=== PATIENT | female | born 1990 | race Caucasian/White ===

== ENCOUNTER 2018-08-20 05:30 | Inpatient (IN) ==
[2018-08-20] MEDS ORDERED: Magnesium Oxide 400 MG Tablet PO PRN (09:37)
[2018-08-20] MEDS ORDERED: Sodium Phosphate Inj 30 MMOL in Sodium Chlor 0.9% Inj 250 ML IV.SIG PRN (09:37)
[2018-08-20] MEDS ORDERED: Magnesium Sulfate Inj 4 GM in Sodium Chlor 0.9% Inj 92 ML IV.SIG PRN (09:37)
[2018-08-20] MEDS ORDERED: Bisacodyl 10 MG Supp RECTAL PRN (09:37)
[2018-08-20] MEDS ORDERED: Potassium Phosphate Inj 30 MMOL in Sodium Chlor 0.9% Inj 250 ML IV.SIG PRN (09:37)
[2018-08-20] MEDS ORDERED: Potassium Chlor 40 mEq Premix 40 MEQ/100 ML PIGGYBACK IV.SIG PRN ×2 (09:37)
[2018-08-20] MEDS ORDERED: Magnesium Sulfate Inj 2 GM in Sodium Chlor 0.9% Inj 96 ML IV.SIG PRN (09:37)
[2018-08-20] MEDS ORDERED: Potassium Chloride Liq 20 MEQ/15 ML UDC PO PRN ×2 (09:37)
[2018-08-20] MEDS ORDERED: Potassium Phosphate 500 MG Soluble Tablet PO PRN ×2 (09:37)
[2018-08-20] MEDS ORDERED: Potassium Chlor 20 mEq Premix 20 MEQ/100 ML PIGGYBACK IV.SIG PRN ×2 (09:37)
[2018-08-20] MEDS ORDERED: Acetaminophen 325 MG Tablet PO PRN (09:46)
[2018-08-20] MEDS ORDERED: MethylPREDNISolone Sod Succinate Inj 125 MG/2 ML Vial IV.PUSH ONE (10:05)
[2018-08-20] MEDS: Dextrose 5%/NaCl 0.45% Inj 1,000 ML IV.CONT SCH ×2 (10:06→21:24)
--- NOTE | 2018-08-20 10:22 | XR ---
EXAM DATE: 08/20/2018 10:08 AM EST AGE/SEX: 28 years / Female INDICATIONS: Short of breath. CLINICAL DATA: This is the patient's initial encounter. Patient reports that signs and symptoms have been present for 1 day and indicates a pain score of 0/10. MEDICAL/SURGICAL HISTORY: Asthma. None. COMPARISON: No prior exams available for comparison. FINDINGS: A single AP view of the chest demonstrates the lungs to be symmetrically aerated without evidence of mass, infiltrate or effusion. The cardiomediastinal contours are unremarkable. Osseous structures a re intact. CONCLUSION: No acute cardiopulmonary disease Electronically signed by: Shawn Bhatt MD Board Certified Radiologist 08/20/2018 10:21 AM EST
[2018-08-20] MEDS ORDERED: guaiFENesin/Dextromethorphan 200 MG/20 MG 10 ML UDC PO PRN (10:31)
--- NOTE | 2018-08-20 10:38 | P.HPCC ---
History of Present Illness Primary Care Physician: UNKNOWN Chief Complaint: Asthma exacerbation History of Present Illness: This is a 28-year-old female that presented to [facility] in respiratory distress, having an asthma attack. At that particular hospital the patient continued to have escalation in symptomatology, receiving multiple nebulizer treatments and BiPAP and a consult was placed for emergent transfer to [facility] for treatment. The patient's medical history is significant for the fact that she has chronic asthma has had a previous intubation years ago. The patient was being followed at a clinic due to lack of insurance, continued receiving her Atrovent and Atrovent nebulizer treatment , however she stated over the last 3 days symptoms became worse. The patient reports that for the past 3 days she has had a productive cough of yellowish, greenish sputum, and exacerbation of her asthma the patient is also noted to be 20 weeks gestation. Critical care medicine was consulted upon arrival here, the patient was noted to be on a nonrebreather mask with O2 saturation of 100%. A stat ABG was performed. Patient received an albuterol nebulizer treatment. FiO2 concentration was weaned to Ventimask 50% patient O2 saturation ranging at 95%. - Diagnosis (1) Asthma exacerbation (2) Asthma with acute exacerbation in adult (3) 20 weeks gestation of Inpatient Certification: I certify that the inpatient services were ordered in accordance with Medicare regulations governing the order. This includes certification that hospital inpatient services are reasonable and necessary and in the case of services not specified as inpatient-only under 42 CFR 419.22(n), that they are appropriately provided as inpatient services in accordance to with the 2-midnight benchmark under 43 CFR 412.3(e) Estimated Total Length of Stay (Days): 5 Plans for Post Hospital Care: Not yet determined Review of Systems Constitutional: Reports fatigue Cardiovascular: Reports shortness of breath (frequent asthma attacks over the last 3 days, medications ineffective) Respiratory: Reports change in phlegm color, Reports chest congestion, Reports cough, Reports pain with cough Psychiatric: Reports panic attacks (anxiety attacks previously on Xanax prior to ) PMF - History History Provided By: Patient - Medical / Surgical Hx Neg / Unobtainable Surgical History: No Previous Surgery - Medical History Medical History: Medical History (Last Reviewed 06/19/18 @ 15:44 by Jo Ann Longo) Asthma History of episiotomy - Social History I have reviewed the patient's Social History: Yes - Tobacco History Smoking Status: Former smoker (1/2PPD x 5years quit 05/2017) - Alcohol History How Often Do You Have a Drink Containing Alcohol: Never - Substance Use History Substance History: No History of Abuse - Travel History History of Recent Travel: No Recent Travel in the [place] Within the Last 8 Weeks: No Recent Travel Out of the Country Within the Last 8 Weeks: No Medications and Allergies Active Medications: Active Medications Acetaminophen (Tylenol) 650 mg PO Q6H PRN PRN Reason: PAIN 1-10 AND/OR FEVER >101F Al Hydroxide/Mg Hydroxide (Milk Of Magnesia Liq) 30 ml PO Q12H PRN PRN Reason: Mild Constipation Albuterol (Albuterol Neb (Jeimy)) 2.5 mg NEB Q2HR NEB JEIMY Albuterol (Duoneb Neb (Prn)) 1 ampul NEB Q15M PRN PRN Reason: WHEEZING Bisacodyl (Dulcolax Supp) 10 mg RECTAL DAILY PRN PRN Reason: SEVERE CONSITIPATION Chlorhexidine Gluconate (Chlorhexidine 2% Cloth) 3 pack TOPICAL DAILY@0400 JEIMY Stop: 08/26/18 03:59 Chlorhexidine Gluconate (Chlorhexidine 2% Cloth) 3 pack TOPICAL DAILY@0400 PRN PRN Reason: Extra cloth needed Stop: 08/26/18 03:59 Chlorhexidine Gluconate (Chlorhexidine 2% Cloth) 3 pack TOPICAL DAILY@0400 JEIMY Stop: 08/26/18 03:59 Chlorhexidine Gluconate (Chlorhexidine 2% Cloth) 3 pack TOPICAL DAILY@0400 PRN PRN Reason: Extra cloth needed Stop: 08/26/18 03:59 Famotidine (Pepcid) 20 mg PO BID JEIMY Famotidine (Pepcid Pf Inj) 20 mg IV.PUSH Q12HR JEIMY Famotidine (Pepcid Pf Inj) 20 mg IV.PUSH Q12HR JEIMY Guaifenesin/Dextromethorphan (Robitussin Dm Liq) 10 ml PO Q6H PRN PRN Reason: COUGH AND/OR COLD SYMPTOMS Magnesium Sulfate 4 gm/ Sodium (Chloride) 100 mls @ 50 mls/hr IV.SIG UNSCH PRN PRN Reason: For Magnesium 0.9 - 1.1 mg/dL Magnesium Sulfate 2 gm/ Sodium (Chloride) 100 mls @ 50 mls/hr IV.SIG UNSCH PRN PRN Reason: For Magnesium 1.2 - 1.6 mg/dL Last Admin: 08/20/18 10:23 Dose: 50 mls/hr Potassium Chloride (Kcl 40 Meq Premix Inj) 40 meq in 100 mls @ 25 mls/hr IV.SIG Q2H PRN PRN Reason: For Potassium 2.8 - 3.2 mEq/L Potassium Chloride (Kcl 20 Meq Premix Inj) 20 meq in 100 mls @ 50 mls/hr IV.SIG Q2H PRN PRN Reason: For Potassium 3.3 - 3.5 mEq/L Potassium Chloride (Kcl 40 Meq Premix Inj) 40 meq in 100 mls @ 25 mls/hr IV.SIG UNSCH PRN PRN Reason: For Potassium 3.3 - 3.5 mEq/L Potassium Chloride (Kcl 20 Meq Premix Inj) 20 meq in 100 mls @ 50 mls/hr IV.SIG Q2H PRN PRN Reason: For Potassium 2.8 - 3.2 mEq/L Potassium Phosphate 30 mmol/ (Sodium Chloride) 260 mls @ 42 mls/hr IV.SIG UNSCH PRN PRN Reason: SEE LABEL COMMENTS Sodium Phosphate 30 mmol/ (Sodium Chloride) 260 mls @ 42 mls/hr IV.SIG UNSCH PRN PRN Reason: For Phosphorus < 2.5 mg/dL Dextrose/Sodium Chloride (D5w/1/2 Ns Inj) 1,000 mls @ 100 mls/hr IV.CONT .Q10H JEIMY Last Admin: 08/20/18 10:06 Dose: 100 mls/hr Lactulose (Lactulose Liq) 30 ml PO DAILY PRN PRN Reason: SEVERE CONSITIPATION Lactulose (Lactulose Liq) 30 ml PO DAILY PRN PRN Reason: SEVERE CONSITIPATION Magnesium Oxide (Mag-Ox) 800 mg PO UNSCH PRN PRN Reason: For Magnesium 1.2 - 1.6 mg/dL Methylprednisolone Sodium Succinate (Solumedrol Inj) 60 mg IV.PUSH ONCE ONE Stop: 08/20/18 10:06 Potassium Chloride (Kcl Liq) 40 meq PO UNSCH PRN PRN Reason: Potassium level 3.3-3.5 mEq/L Potassium Chloride (Kcl Liq) 40 meq PO UNSCH PRN PRN Reason: POTASSIUM LESS THAN 3.5 Potassium Phosphate (K-Phos Original) 2,000 mg PO Q4H PRN PRN Reason: Phosphorus Less Than 2.5 mg/dL Potassium Phosphate (K-Phos Original) 2,000 mg PO UNSCH PRN PRN Reason: SEE LABEL COMMENTS Sennosides (Senokot) 17.2 mg PO Q12H PRN PRN Reason: Moderate Constipation Sodium Chloride (Ns Flush) 2 ml IV.FLUSH BID JEIMY Sodium Chloride (Ns Flush) 2 ml IV.FLUSH PRN PRN PRN Reason: FLUSH AFTER USING IV ACCESS Sodium Chloride (Ns Flush) 2 ml IV.FLUSH PRN PRN PRN Reason: FLUSH AFTER USING IV ACCESS Allergies Allergy/AdvReac Type Severity Reaction Status Date / Time aspirin Allergy Swelling Verified 06/19/18 15:08 of Lip/Tongue/Throat ibuprofen Allergy Swelling Verified 06/19/18 15:07 of Lip/Tongue/Throat NSAIDS (Non-Steroidal Allergy Shortness Verified 06/19/18 15:07 Anti-Inflamma of Breath Home Medications Medication Instructions Recorded Confirmed Type albuterol sulfate 1 puff INHALATION Q6H PRN 06/19/18 06/19/18 History albuterol sulfate 1.25 mg INHALATION Q4H PRN 06/19/18 06/19/18 History azithromycin [Zithromax Z-James] 250 mg PO DAILY 06/19/18 06/19/18 History fluticasone-salmeterol [Advair 1 puff INHALATION Q12H 06/19/18 06/19/18 History Diskus] prednisone 5 mg PO PER PKG DIR 06/19/18 06/19/18 History Results - Labs CBC & Chem 7: 08/20/18 12:00 08/21/18 06:28 - Imaging Impressions Chest X-Ray 08/20/18 09:53 CONCLUSION: No acute cardiopulmonary disease Exam Vital signs: Vital Signs 08/20/18 10:18 Pulse Rate 127 H Respiratory Rate 20 - Constitutional moderate distress, average body habitus, agitated (anxious) - Routine HEENT Exam Head: Present: normocephalic, atraumatic Eye: Present: EOMI, PERRL, conjunctivae pink ENT: Present: mucous membranes moist, dentition normal, nares patent, external ear normal - Routine Neck Exam Present: supple, full ROM - Routine Respiratory Exam Present: decreased breath sounds, respiratory distress (mild resp distress) - Routine Cardiovascular Exam Present: S1, S2, tachycardia - Routine Abdominal Exam Present: normoactive bowel sounds - Routine Exam Comments: 20 weeks gestational - Routine Skin Exam Present: intact, dry, warm - Routine Neurological Exam Present: alert, oriented X3, CN II-XII intact, normal reflexes, moving all extremities, normal tone Caprini VTE Risk Assessment Caprini VTE Risk Assessment: Moderate/High Risk (score >= 2) Caprini Risk Assessment Model: Point Value = 1 Point Value = 2 Point Value = 3 Point Value = 5 Age 41-60 Minor surgery BMI > 25 kg/m2 Swollen legs Varicose veins or History of unexplained or recurrent spontaneous Oral contraceptives or hormone replacement Sepsis (< 1 month) Serious lung disease, including pneumonia (< 1 month) Abnormal pulmonary function Acute myocardial infarction Congestive heart failure (< 1 month) History of inflammatory bowel disease Medical patient at bed rest Age 61-74 Arthroscopic surgery Major open surgery (> 45 min) Laparoscopic surgery (> 45 min) Malignancy Confined to bed (> 72 hours) Immobilizing plaster cast Central venous access Age >= 75 History of VTE Family history of VTE Factor V Leiden Prothrombin [id number] Lupus anticoagulant Anticardiolipin antibodies Elevated serum homocysteine Heparin-induced thrombocytopenia Other congenital or acquired thrombophilia Stroke (< 1 month) Elective arthroplasty Hip, pelvis, or leg fracture Acute spinal cord injury (< 1 month) Prophylaxis Regimen: Total Risk Factor Score Risk Level Prophylaxis Regimen 0-1 Low Early ambulation 2 Moderate Order ONE of the following: *Sequential Compression Device (SCD) *Heparin 5000 units SQ BID 3-4 Higher Order ONE of the following medications: *Heparin 5000 units SQ TID *Enoxaparin/Lovenox 40 mg SQ daily (WT < 150 kg, CrCl > 30 mL/min) *Enoxaparin/Lovenox 30 mg SQ daily (WT < 150 kg, CrCl > 10-29 mL/min) *Enoxaparin/Lovenox 30 mg SQ BID (WT < 150 kg, CrCl > 30 mL/min) AND/OR *Sequential Compression Device (SCD) 5 or more Highest Order ONE of the following medications: *Heparin 5000 units SQ TID (Preferred with Epidurals) *Enoxaparin/Lovenox 40 mg SQ daily (WT < 150 kg, CrCl > 30 mL/min) *Enoxaparin/Lovenox 30 mg SQ daily (WT < 150 kg, CrCl > 10-29 mL/min) *Enoxaparin/Lovenox 30 mg SQ BID (WT < 150 kg, CrCl > 30 mL/min) AND *Sequential Compression Device (SCD) Assessment and Plan - Problem List (1) Asthma exacerbation Code(s): J45.901 - Unspecified asthma with (acute) exacerbation Status: Acute (2) Asthma with acute exacerbation in adult Code(s): J45.901 - Unspecified asthma with (acute) exacerbation Status: Acute (3) 20 weeks gestation of Code(s): Z3A.20 - 20 weeks gestation of Status: Acute - Assessment and Plan Plan: Assessment This is a 28-year-old female 20 weeks gestation, with acute asthma exacerbation , with worsening symptoms. Patient is at risk for intubation we will admit to ICU. Plan by systems: Neurologic: Anxiety disorder Ativan 0.5 mg every 6 hours as needed for anxiety/agitation. Discussed with OB karolina Faustin in Acetaminophen 650 mg every 6 hours as needed Respiratory: Productive cough Acute asthma exacerbation Obtain stat ABG Wean FiO2 currently on nonrebreather to maintain O2 saturation 9395 % Albuterol every 2 hours as needed Duo nebs every 4 hours as needed Methylprednisolone 60 mg IV x 1 dose Magnesium 2 g IV over 20-min x 1 dose Pulmonology consulted-spoke with Dr. Hodgson Patient was previously on a Zithromax Robitussin-DM 1 teaspoon every 6 hours PRN Obtain sputum culture Insert arterial line for serial blood gas monitoring Cardiovascular: Sinus tachycardia Maintain map greater than 65mmHG Renal: No Rodriguez indicated -- Strict I/Os FEN/GI: N.p.o. status for now patient is at risk for intubation D5 half-normal saline at 100 cc/hr Zofran for nausea Heme/ID: Lactic acidemia Obtain CBC Obtain blood culture x 2. empiric antibiotics Obtain influenza nasal swab Obtain strep pneumo antigen Obtain sputum culture Endocrine: Glucose monitoring per ICU protocol -- SSI Prophylaxis: GI Prophylaxis Famotidine twice daily DVT Prophylaxis -- SCDs, Heparin SQ BID Lines: Peripheral IVs x2. Central line if indicated Dispo: My billing statement This patient remains critically ill with one or more organ systems which are or may become a threat to life. I have spent in excess of 60 minutes discontinuously in the care and management of this patient. This time is exclusive of procedures, and includes, but is not limited to, evaluation of the patient, review of the medical record, discussions with family, consultants, nursing staff, or respiratory therapy, and documentation in the medical record. Code Status: Full Discussed Condition With: Dr. Hodgson Pulmonology, Dr. Sudhakar Gonsalez ACCOUNTS SPECIALIST, patient, and INTERIOR PANELER at bedside
[2018-08-20 10:49] LABS: ABG Base Excess -9.7 mmol/L (-2-2); ABG PCO2 22 mmHg (38-42); ABG PO2 191 mmHG (61-120)
--- NOTE | 2018-08-20 11:49 | P.CONOB ---
History of Present Illness Consult date: 08/20/18 Requesting Physician: Geovanna Osorio Reason for Consult: Asthma exacerbation in a 20-week Primary Care Physician: Dr. Nicola Mojica Chief Complaint: Asthma exacerbation History of Present Illness: 28-year-old black female now at 20 weeks gestation [facility] and is in the ICU for exacerbation of asthma respiratory distress, that presented to [facility] in respiratory distress, having an asthma attack. At that particular hospital the patient continued to have escalation in symptomatology, receiving multiple nebulizer treatments and BiPAP and a consult was placed for emergent transfer to [facility] for treatment. The patient's medical history is significant for the fact that she has chronic asthma has had a previous intubation years ago. The patient was being followed at a clinic due to lack of insurance, continued receiving her Atrovent and Atrovent nebulizer treatment, however she stated over the last 3 days symptoms became worse. The patient reports that for the past 3 days she has had a productive cough of yellowish greenish sputum, and exacerbation of her asthma the patient is also noted to be 28 weeks gestation. Critical care medicine was consult upon arrival here the patient was noted to be on a nonrebreather mask with O2 saturation of 100%. A stat ABG was performed. Patient received an albuterol nebulizer treatment. FiO2 concentration was weaned to Ventimask 50% patient O2 saturation ranging at 95%. Patient is having no obstetric complications no abdominal pain, bleeding, or leakage of fluid. She has had no obstetric complication to date and her Weeks Gestation:: 20 Para: 2 : 3 Review of Systems Respiratory: Reports chest congestion, Reports cough, Reports shortness of breath, Reports wheezing PMFSH - History History Provided By: Patient - Medical History Medical History: Medical History (Last Reviewed 06/19/18 @ 15:44 by Jo Ann Longo) Asthma History of episiotomy - Tobacco History Second Hand Smoke Exposure: No Tobacco Use In Past 30 Days: No Smoking Status: Former smoker (1/2PPD x 5years quit 05/2017) Tobacco Type: Cigarettes - Alcohol History How Often Do You Have a Drink Containing Alcohol: Never - Substance Use History Substance History: No History of Abuse - Travel History History of Recent Travel: No Recent Travel in the [place] Within the Last 8 Weeks: No Recent Travel Out of the Country Within the Last 8 Weeks: No - Immunization History Tetanus Immunization: <5 Years Hx Influenza Vaccine This Season: Yes Medications and Allergies Active Medications: Active Medications Acetaminophen (Tylenol) 650 mg PO Q6H PRN PRN Reason: PAIN 1-10 AND/OR FEVER >101F Al Hydroxide/Mg Hydroxide (Milk Of Magnesia Liq) 30 ml PO Q12H PRN PRN Reason: Mild Constipation Albuterol (Albuterol Neb (Jeimy)) 2.5 mg NEB Q2HR NEB JEIMY Last Admin: 08/20/18 10:49 Dose: Not Given Albuterol (Duoneb Neb (Prn)) 1 ampul NEB Q15M PRN PRN Reason: WHEEZING Bisacodyl (Dulcolax Supp) 10 mg RECTAL DAILY PRN PRN Reason: SEVERE CONSITIPATION Chlorhexidine Gluconate (Chlorhexidine 2% Cloth) 3 pack TOPICAL DAILY@0400 JEIMY Stop: 08/26/18 03:59 Chlorhexidine Gluconate (Chlorhexidine 2% Cloth) 3 pack TOPICAL DAILY@0400 PRN PRN Reason: Extra cloth needed Stop: 08/26/18 03:59 Chlorhexidine Gluconate (Chlorhexidine 2% Cloth) 3 pack TOPICAL DAILY@0400 JEIMY Stop: 08/26/18 03:59 Chlorhexidine Gluconate (Chlorhexidine 2% Cloth) 3 pack TOPICAL DAILY@0400 PRN PRN Reason: Extra cloth needed Stop: 08/26/18 03:59 Famotidine (Pepcid) 20 mg PO BID JEIMY Famotidine (Pepcid Pf Inj) 20 mg IV.PUSH Q12HR JEIMY Famotidine (Pepcid Pf Inj) 20 mg IV.PUSH Q12HR JEIMY Guaifenesin/Dextromethorphan (Robitussin Dm Liq) 10 ml PO Q6H PRN PRN Reason: COUGH AND/OR COLD SYMPTOMS Last Admin: 08/20/18 10:59 Dose: 10 ml Magnesium Sulfate 4 gm/ Sodium (Chloride) 100 mls @ 50 mls/hr IV.SIG UNSCH PRN PRN Reason: For Magnesium 0.9 - 1.1 mg/dL Magnesium Sulfate 2 gm/ Sodium (Chloride) 100 mls @ 50 mls/hr IV.SIG UNSCH PRN PRN Reason: For Magnesium 1.2 - 1.6 mg/dL Last Admin: 08/20/18 10:23 Dose: 50 mls/hr Potassium Chloride (Kcl 40 Meq Premix Inj) 40 meq in 100 mls @ 25 mls/hr IV.SIG Q2H PRN PRN Reason: For Potassium 2.8 - 3.2 mEq/L Potassium Chloride (Kcl 20 Meq Premix Inj) 20 meq in 100 mls @ 50 mls/hr IV.SIG Q2H PRN PRN Reason: For Potassium 3.3 - 3.5 mEq/L Potassium Chloride (Kcl 40 Meq Premix Inj) 40 meq in 100 mls @ 25 mls/hr IV.SIG UNSCH PRN PRN Reason: For Potassium 3.3 - 3.5 mEq/L Potassium Chloride (Kcl 20 Meq Premix Inj) 20 meq in 100 mls @ 50 mls/hr IV.SIG Q2H PRN PRN Reason: For Potassium 2.8 - 3.2 mEq/L Potassium Phosphate 30 mmol/ (Sodium Chloride) 260 mls @ 42 mls/hr IV.SIG UNSCH PRN PRN Reason: SEE LABEL COMMENTS Sodium Phosphate 30 mmol/ (Sodium Chloride) 260 mls @ 42 mls/hr IV.SIG UNSCH PRN PRN Reason: For Phosphorus < 2.5 mg/dL Dextrose/Sodium Chloride (D5w/1/2 Ns Inj) 1,000 mls @ 100 mls/hr IV.CONT .Q10H JEIMY Last Admin: 08/20/18 10:06 Dose: 100 mls/hr Lactulose (Lactulose Liq) 30 ml PO DAILY PRN PRN Reason: SEVERE CONSITIPATION Magnesium Oxide (Mag-Ox) 800 mg PO UNSCH PRN PRN Reason: For Magnesium 1.2 - 1.6 mg/dL Potassium Chloride (Kcl Liq) 40 meq PO UNSCH PRN PRN Reason: Potassium level 3.3-3.5 mEq/L Potassium Chloride (Kcl Liq) 40 meq PO UNSCH PRN PRN Reason: POTASSIUM LESS THAN 3.5 Potassium Phosphate (K-Phos Original) 2,000 mg PO Q4H PRN PRN Reason: Phosphorus Less Than 2.5 mg/dL Potassium Phosphate (K-Phos Original) 2,000 mg PO UNSCH PRN PRN Reason: SEE LABEL COMMENTS Sennosides (Senokot) 17.2 mg PO Q12H PRN PRN Reason: Moderate Constipation Sodium Chloride (Ns Flush) 2 ml IV.FLUSH BID JEIMY Sodium Chloride (Ns Flush) 2 ml IV.FLUSH PRN PRN PRN Reason: FLUSH AFTER USING IV ACCESS Allergies Allergy/AdvReac Type Severity Reaction Status Date / Time aspirin Allergy Swelling Verified 06/19/18 15:08 of Lip/Tongue/Throat ibuprofen Allergy Swelling Verified 06/19/18 15:07 of Lip/Tongue/Throat NSAIDS (Non-Steroidal Allergy Shortness Verified 06/19/18 15:07 Anti-Inflamma of Breath Home Medications Medication Instructions Recorded Confirmed Type albuterol sulfate 1 puff INHALATION Q6H PRN 06/19/18 06/19/18 History albuterol sulfate 1.25 mg INHALATION Q4H PRN 06/19/18 06/19/18 History azithromycin [Zithromax Z-James] 250 mg PO DAILY 06/19/18 06/19/18 History fluticasone-salmeterol [Advair 1 puff INHALATION Q12H 06/19/18 06/19/18 History Diskus] prednisone 5 mg PO PER PKG DIR 06/19/18 06/19/18 History Exam Vital signs: Vital Signs 08/20/18 10:18 Pulse Rate 127 H Respiratory Rate 20 Intake & Output 08/19/18 08/20/18 08/20/18 18:59 06:59 18:59 Weight 78.5 kg Other: Weight On Admission 78.5 kg Narrative: GENERAL: Well-nourished, well-developed patient. SKIN: Warm and dry. HEAD: Normocephalic and atraumatic. EYES: No scleral icterus. No injection or drainage. ENT: No nasal drainage noted. Mucous membranes pink. Airway patent. NECK: Supple, trachea midline. No JVD. CARDIOVASCULAR: Tachycardic sinus rhythm RESPIRATORY: Breath sounds equal bilaterally. No accessory muscle use. Positive wheezing BREASTS: Bilateral exam showed no masses , no retractions, no nipple discharge. ABDOMEN/GI: Abdomen soft, non-tender, bowel sounds present, no rebound, no guarding Gravid to [20-] weeks size Fundal Height: [at umb-] GENITOURINARY: FHT's: 144 EXTREMITIES: No cyanosis or edema. BACK: Nontender without obvious deformity. No CVA tenderness. NEUROLOGICAL: Awake and alert. Motor and sensory grossly within normal limits. Five out of 5 muscle strength in all muscle groups. Normal speech. Results - Labs Labs: Laboratory Results - last 24 hr 08/20/18 09:48 Puncture Site Art line Patient Temperature 98.6 O2 Saturation 97 ABG pH 7.42 ABG pCO2 22 L* ABG pO2 191 H ABG HCO3 14 L* ABG O2 Content 19.8 ABG Base Excess -9.7 L ABG Methemoglobin 1.8 Ray Test Present Hemoglobin 14.3 Carboxyhemoglobin 0.5 O2 Delivery Device Nrm Liter Flow 15.00 Inspired O2 100 Critical Value Yes - Imaging Impressions Chest X-Ray 08/20/18 09:53 CONCLUSION: No acute cardiopulmonary disease Assessment and Plan - Diagnosis (1) 20 weeks gestation of Code(s): Z3A.20 - 20 weeks gestation of Status: Acute (2) Asthma with acute exacerbation in adult Code(s): J45.901 - Unspecified asthma with (acute) exacerbation Status: Acute - Plan Obstetric plan for this 20-week patient is to be a consultation service. Counseled her admitting physicians on medications that are appropriate for her being 5 months which would include antibiotics, cough medications anxiety meds. heart tones are normal today and will plan to check heart tones before she is discharged from the hospital make sure there continued to be okay otherwise she will follow-up with her routine obstetric care once out of the [facility] with [facility]
[2018-08-20 12:21] LABS: Hematocrit 36.1 % (35.0-46.0); Hemoglobin 12.2 gm/dL (11.6-15.3); Mean Corpuscular Hemoglobin 33.8 pg (27.0-34.0); Mean Corpuscular Volume 99.5 fL (80.0-100.0); Mean Platelet Volume 8.5 fL (7.0-11.0); Platelet Count 218 th/mm3 (150-450); Red Blood Count 3.62 mil/mm3 (4.00-5.30); Red Cell Distribution Width 13.7 % (11.6-17.2); White Blood Count 24.3 th/mm3 (4.0-11.0)
[2018-08-20 12:41] LABS: Calcium 7.9 mg/dL (8.5-10.1); Carbon Dioxide 15.8 meq/L (21.0-32.0); Potassium 3.9 meq/L (3.5-5.1)
[2018-08-20 12:49] LABS: ABG Base Excess -9.9 mmol/L (-2-2); ABG PCO2 19 mmHg (38-42); ABG PO2 68 mmHG (61-120)
[2018-08-20] MEDS: Budesonide-Formoterol 160/4.5 MCG 6 GM Inhaler INH SCH ×2 (13:33→21:24)
[2018-08-20] MEDS ORDERED: Propofol Inj 500 MG/50 ML Vial IV.PUSH ONE (13:41)
[2018-08-20] MEDS ORDERED: Succinylcholine Inj 200 MG/10 ML Vial IV.PUSH ONE (13:42)
[2018-08-20] MEDS ORDERED: fentaNYL Citrate Inj 250 MCG/5 ML Ampul IV.PUSH ONE (13:43)
[2018-08-20] MEDS ORDERED: Succinylcholine Inj 200 MG/10 ML Vial ONE (13:44)
[2018-08-20] MEDS ORDERED: Propofol Inj 500 MG/50 ML Vial ONE (13:45)
[2018-08-20] MEDS ORDERED: fentaNYL Citrate Inj 100 MCG/2 ML Ampul ONE ×2 (13:46→14:31)
--- NOTE | 2018-08-20 13:57 | MB ---
cc: Sathya Vivas MD DATE: 08/20/2018 REASON FOR CONSULTATION: Acute asthma exacerbation. HISTORY OF PRESENT ILLNESS: The patient is a 28-year-old female with a past medical history of bronchial asthma, G3, P2, at 20-week gestation, who initially presented to [facility] in respiratory distress and with acute asthma exacerbation. She received multiple nebulizer treatments and a BiPAP. She was emergently transferred to [facility]. She was admitted to the ICU under dry primer powder blender service. The patient was also seen by the OB hospitalist. ABG was performed on a nonrebreather mask which showed a pH of 7.42, CO2 of 22, PaO2 of 191, bicarbonate 14, and saturation of 97%. She was given a bronchodilator, magnesium, and IV steroids. The patient states that she was diagnosed with bronchial asthma 10 years ago and has been progressively worsened in the last few years. At home, she uses Advair, albuterol inhaler, and nebulizers. She was hospitalized 3 times in last 1 year and required intubation previously. The patient states that her asthma is worse with seasonal changes, pollens, and grass. She also reports productive cough with dugan phlegm associated with wheezing and shortness of breath. She denies any orthopnea, PND, or edema of lower extremities. Also, she denies any constitutional symptoms. A chest x-ray on arrival showed no acute disease. Her laboratory data significant for leukocytosis with a WBC of 24.3. The patient denies any nausea or vomiting. A repeat ABG is pending. PAST MEDICAL HISTORY: Significant for bronchial asthma, history of episiotomy. ALLERGIES: ASPIRIN, NSAIDS, IBUPROFEN. SOCIAL HISTORY: Ex-smoker, quit smoking in 2017. She has a 5-pack-year history of smoking. Nondrinker. FAMILY HISTORY: Noncontributory to present illness. MEDICATIONS AT HOME: 1. vitamins. 2. Advair. 3. Z-James 4. Albuterol. REVIEW OF SYSTEMS: As per HPI. The rest of review of systems is unremarkable. PHYSICAL EXAMINATION: GENERAL: A 28-year-old female lying in bed, in mild distress. VITAL SIGNS: Temperature 98.5, pulse of 120s, respiratory rate of 20, blood pressure 119/58, saturation of 95%. HEENT: Atraumatic, normocephalic. Pupils are equal, round, reactive to light and accommodation. Extraocular muscles intact. Conjunctivae pink, anicteric sclerae. Oral mucosa within normal. NECK: Supple. No JVD, adenopathy, thyromegaly. Trachea in the midline. CARDIOVASCULAR: Tachycardic. Normal S1, S2. No murmurs, rubs or gallops noted. PULMONARY: Bilateral equal air entry with scattered wheezing and a few coarse breath sounds. ABDOMEN: Soft, nontender. Positive bowel sounds. EXTREMITIES: No cyanosis, clubbing, or edema. NEUROLOGIC: No focal sensory deficit. LABORATORY DATA: WBC 24.3, hemoglobin 12, hematocrit 36, platelet count 218. BMP, lactic acid is pending. Radiographic studies: Chest x-ray showed no acute disease. IMPRESSION: 1. Acute hypoxemic respiratory failure. 2. Acute bronchial asthma exacerbation. 3. Bronchospasms. 4. Leukocytosis. RECOMMENDATIONS: 1. Continue with oxygen and maintain saturations above 92%. 2. Place on bronchodilators in the form of DuoNeb every 4 hours plus every 2 hours p.r.n. for shortness of breath and Symbicort 160/4.5 two puffs b.i.d. 3. Start Solu-Medrol 40 mg IV every [address] on empiric antibiotics, Rocephin, and monitor for signs of infection which include fever and WBC. We will obtain a sputum culture with Gram stain, check Streptococcus pneumoniae and Legionella urinary antigen, and send nasal swab to rule out influenza. 5. We will obtain repeat ABG now. If there is any worsening in respiratory status, we will proceed with intubation and mechanical ventilation. 6. Obtain a baseline IgE level. 7. Singulair 10 mg at bedtime if okay with OB. 8. Repeat CBC with differential and follow up on BMP and lactic acid. 9. Case discussed with Dr. Gonsalez from OB. 10. Further recommendations will be based on hospital course. MD RIGO Coello/ninfa , 12:57 PM , 01:08 PM STUART
[2018-08-20] MEDS: Propofol 1000 mg/100 ml Inj 1,000 MG/100 ML BOTTLE IV.CONT PRN ×2 (14:15→19:40)
[2018-08-20] MEDS: fentaNYL 10 mcg/mL Premix Drip 2,500 MCG/250 ML BAG IV.SIG PRN (14:30)
[2018-08-20] MEDS ORDERED: fentaNYL Citrate Inj 100 MCG/2 ML Ampul IV.PUSH ONE (14:30)
[2018-08-20] MEDS ORDERED: Heparin - SQ 10,000 UNITS/ML Vial SQ SCH (14:45)
--- NOTE | 2018-08-20 15:25 | XR ---
EXAM DATE: 08/20/2018 2:58 PM EST AGE/SEX: 28 years / Female INDICATIONS: Post intubation. CLINICAL DATA: This is the patient's subsequent encounter. Patient reports that signs and symptoms h ave been present for 1 day and indicates a pain score of Nonresponsive. MEDICAL/SURGICAL HISTORY: Asthma. None. COMPARISON: No prior exams available for comparison. FINDINGS: Endotracheal tube in good position. NG coiled in stomach. Minimal subsegmental basilar airspace disea se and small right. No pneumothorax. CONCLUSION: Endotracheal tube and nasogastric tube in good position. Subsegmental basilar airspace disease. Electronically signed by: Ezio Toledo MD Board Certified Radiologist 08/20/2018 3:24 PM EST
[2018-08-20] MEDS ORDERED: Dextrose 50% in Water 50 ML Vial IV.PUSH PRN (15:55)
--- NOTE | 2018-08-20 15:55 | P.PCN ---
Date of procedure: 08/20/18 Pre-op diagnosis: Asthma exacerbation Post-op diagnosis: same Procedure: Endotracheal Intubation Diagnosis: Asthma exacerbation Indications: Same Consent: From patient Anesthesia: see MAR Description of the Procedure: The patient was positioned in the sniffing position. Pre-oxygenation was performed using a 100% BVM. Anesthesia was induced via rapid sequence. A Glidescope 3 was used for laryngoscopy and a Grade 1 view was obtained. A 7.5 cuffed endotracheal tube was inserted atraumatically through the vocal cords. Confirmation of correct endotracheal tube placement was made by equal and bilateral breath sounds and colorimetric CO2 detection. The endotracheal tube was secured at 20 cm at the teeth. There were no immediate complications noted. The patient remained hemodynamically stable throughout the procedure. A chest x-ray has been ordered. I personally performed the procedure. Condition: critical
[2018-08-20] MEDS: Oral Hygiene Kit OROPHARYNG SCH (16:04)
[2018-08-20 16:16] LABS: ABG Base Excess -10.2 mmol/L (-2-2); ABG PCO2 28 mmHg (38-42); ABG PO2 326 mmHG (61-120)
[2018-08-20 17:50] LABS: ABG Base Excess -10.5 mmol/L (-2-2); ABG PCO2 25 mmHg (38-42); ABG PO2 94 mmHG (61-120)
[2018-08-20] MEDS: Insulin NovoLOG Aspart Correctional Sugar Inj SQ SCH (18:05)
[2018-08-20] MEDS ORDERED: Sod Chloride 0.9% Inj 1,000 ML IV.SIG SCH (18:15)
[2018-08-20] MEDS ORDERED: Dexmedetomidine Inj 200 MCG in Sodium Chlor 0.9% Inj 48 ML IV.CONT PRN (20:48)
[2018-08-20] MEDS ORDERED: Famotidine 20 MG Tablet PO SCH (21:00)
[2018-08-20] MEDS ORDERED: Famotidine PF Inj 20 MG/2 ML Vial IV.PUSH SCH (21:00)
[2018-08-20] MEDS: Famotidine PF Inj 20 MG/2 ML Vial IV.PUSH SCH (21:23)
[2018-08-20] MEDS: Chlorhexidine 0.12% Oral Kit 15 ML UDC OROPHARYNG SCH (21:24)
[2018-08-21] MEDS: MethylPREDNISolone Sod Succinate Inj 40 MG/ML Vial IV.PUSH SCH ×3 (00:41→23:14)
[2018-08-21] MEDS: fentaNYL 10 mcg/mL Premix Drip 2,500 MCG/250 ML BAG IV.SIG PRN (00:42)
[2018-08-21] MEDS: Oral Hygiene Kit OROPHARYNG SCH ×4 (00:44→15:07)
[2018-08-21] MEDS: Insulin NovoLOG Aspart Correctional Sugar Inj SQ SCH ×4 (00:46→17:35)
[2018-08-21] MEDS ORDERED: Sodium Chlor 0.9% Inj 500 ML IV.SIG SCH (01:00)
[2018-08-21] MEDS: Dexmedetomidine Inj 200 MCG in Sodium Chlor 0.9% Inj 48 ML IV.CONT PRN ×2 (01:32→05:51)
[2018-08-21] MEDS: Propofol 1000 mg/100 ml Inj 1,000 MG/100 ML BOTTLE IV.CONT PRN (01:46)
[2018-08-21] MEDS ORDERED: Chlorhexidine Gluconate 2% 1 Pack (2 Cloths) TOPICAL PRN ×2 (04:00)
[2018-08-21] MEDS: Chlorhexidine Gluconate 2% 1 Pack (2 Cloths) TOPICAL SCH ×2 (04:44)
[2018-08-21 06:35] LABS: ABG PCO2 28 mmHg (38-42); ABG PO2 117 mmHG (61-120)
[2018-08-21 06:54] LABS: Baso % (Auto) 0.2 % (0.0-2.0); Eos % (Auto) 0.1 % (0.0-4.0); Hematocrit 29.1 % (35.0-46.0); Lymph # (Auto) 0.9 th/mm3 (1.0-4.8); Lymph % (Auto) 4.4 % (9.0-44.0); Mean Corpuscular HGB Conc 34.4 % (32.0-36.0); Mean Corpuscular Hemoglobin 34.8 pg (27.0-34.0); Mean Corpuscular Volume 101.1 fL (80.0-100.0); Mean Platelet Volume 8.4 fL (7.0-11.0); Mono % (Auto) 4.9 % (0.0-8.0); Neut # (Auto) 18.8 th/mm3 (1.8-7.7); Neut % (Auto) 90.4 % (16.0-70.0); Platelet Count 187 th/mm3 (150-450); Red Blood Count 2.88 mil/mm3 (4.00-5.30); Red Cell Distribution Width 13.5 % (11.6-17.2); White Blood Count 20.8 th/mm3 (4.0-11.0)
[2018-08-21] MEDS: Dextrose 5%/NaCl 0.45% Inj 1,000 ML IV.CONT SCH ×2 (06:57→15:12)
[2018-08-21 07:07] LABS: Anion Gap 7 meq/L (5-15); Blood Urea Nitrogen 12 mg/dL (7-18); Calcium 6.9 mg/dL (8.5-10.1); Carbon Dioxide 18.1 meq/L (21.0-32.0); Chloride 116 meq/L (98-107); Glomerular Filtration Rate Greater Than 89 mL/min (>89); Glucose,Random 122 mg/dL (74-106); Phosphorus 2.3 mg/dL (2.5-4.9); Potassium 4.5 meq/L (3.5-5.1); Sodium 141 meq/L (136-145)
[2018-08-21 07:13] LABS: Albumin 2.3 g/dL (3.4-5.0); Calcium-Albumin Corrected 8.3 mg/dL (8.5-10.1)
[2018-08-21 07:44] LABS: Lymphocytes 3 % (9-44); Metamyelocytes 1 % (0-1); Monocytes 4 % (0-8); Platelet Estimate Normal (Normal); Platelet Morphology Normal (Normal)
--- NOTE | 2018-08-21 07:44 | P.OBGPN ---
OB note HD 2 Pt is 20 wk IUP with resp distress secondary to asthma /pnuemonia , now intubated no OB complication, no bleeding or fluid leakage will continue to round and give career placement services counselor on different meds and address any OB concerns
--- NOTE | 2018-08-21 07:59 | P.PNCC ---
Subjective Subjective Remarks/Hospital Course: 08/21: Last evening the patient's ABG worsen patient's respiratory status deteriorated the patient required intubation and mechanical ventilation .labs obtained the patient was noted to have a leukocytosis cultures were obtained empiric antibiotics were initiated to include ampicillin and Rocephin both discussed with [employer] Dr. Gonsalez. ID was also consulted. this a.m. the patient's oxygen requirements decreased overnight. Patient transition to Precedex in anticipation for possible extubation today. The patient was on low-dose Precedex 0.3 mcgs/kg/hr. This a.m. the patient complained chest tightness, butyryl neb nebulizer was provided. Patient has OGT in situ the patient began vomiting, NG tube placed on suctioned, subsequently dislodged from vomiting, and removed. Patient became extremely agitated. Precedex infusion increased. Discussed case with Dr. Gonsalez at bedside plan for Vistaril 50 mg IM every 6 hours as recommended. Patient complaining of persistent nausea, Zofran continued at every 6 hours as needed. Objective Vital Signs / I&O: Vital Signs 08/20/18 10:00 08/20/18 10:18 08/20/18 12:00 Temperature 98.5 F Pulse Rate 127 H 127 H 128 H Respiratory Rate 20 28 H Blood Pressure 119/58 L Pulse Oximetry 95 08/20/18 12:09 08/20/18 14:00 08/20/18 14:23 Temperature Pulse Rate 121 H 145 H Respiratory Rate 20 25 H 22 Blood Pressure Pulse Oximetry 99 08/20/18 16:00 08/20/18 16:01 08/20/18 18:00 Temperature 99.2 F Pulse Rate 102 H 104 H 100 H Respiratory Rate 17 12 Blood Pressure 96/53 L Pulse Oximetry 99 08/20/18 20:00 08/20/18 20:06 08/20/18 22:00 Temperature Pulse Rate 85 114 H 83 Respiratory Rate 18 Blood Pressure Pulse Oximetry 100 08/20/18 22:30 08/20/18 22:45 08/20/18 22:57 Temperature Pulse Rate 148 H 105 H 105 H Respiratory Rate 25 H 20 14 Blood Pressure 154/90 H 126/66 Pulse Oximetry 95 96 08/20/18 22:58 08/20/18 23:00 08/20/18 23:13 Temperature Pulse Rate 101 H 96 H Respiratory Rate 18 12 12 Blood Pressure 103/59 L 99/54 L Pulse Oximetry 96 97 97 08/20/18 23:15 08/20/18 23:30 08/20/18 23:45 Temperature Pulse Rate 93 H 135 H 96 H Respiratory Rate 12 19 12 Blood Pressure 97/54 L 121/66 127/66 Pulse Oximetry 98 97 96 08/21/18 00:00 08/21/18 00:15 08/21/18 00:30 Temperature Pulse Rate 130 H 142 H 102 H Respiratory Rate 20 20 12 Blood Pressure 123/67 132/67 98/51 L Pulse Oximetry 83 L 100 95 08/21/18 00:45 08/21/18 01:00 08/21/18 01:15 Temperature Pulse Rate 97 H 95 H 95 H Respiratory Rate 12 12 12 Blood Pressure 98/55 L 109/59 L 107/56 L Pulse Oximetry 97 98 98 08/21/18 01:30 08/21/18 01:45 08/21/18 02:00 Temperature Pulse Rate 116 H 103 H 112 H Respiratory Rate 14 12 12 Blood Pressure 114/64 113/62 110/60 Pulse Oximetry 100 98 95 08/21/18 02:07 08/21/18 02:30 08/21/18 02:46 Temperature Pulse Rate 97 H 89 112 H Respiratory Rate 12 12 18 Blood Pressure 87/49 L 92/55 L 98/56 L Pulse Oximetry 98 99 96 08/21/18 03:00 08/21/18 03:15 08/21/18 03:30 Temperature Pulse Rate 88 82 81 Respiratory Rate 12 12 12 Blood Pressure 93/50 L 93/53 L 94/52 L Pulse Oximetry 100 100 100 08/21/18 04:00 08/21/18 04:01 08/21/18 04:02 Temperature Pulse Rate 105 H 93 H 92 H Respiratory Rate 17 13 16 Blood Pressure 104/50 L Pulse Oximetry 72 L 95 98 08/21/18 04:15 08/21/18 04:30 08/21/18 04:45 Temperature Pulse Rate 102 H 102 H 115 H Respiratory Rate 16 22 21 Blood Pressure 94/50 L 95/57 L 99/60 L Pulse Oximetry 97 97 100 08/21/18 05:00 08/21/18 05:15 08/21/18 06:00 Temperature Pulse Rate 101 H 122 H 78 Respiratory Rate 19 23 15 Blood Pressure 111/55 L 121/55 L Pulse Oximetry 97 96 Intake & Output 08/20/18 08/21/18 08/21/18 18:59 06:59 18:59 Intake Total 500 / 500 4100 / 4100 Output Total 570 / 570 500 / 500 Balance -70 / -70 3600 / 3600 Weight 78.5 kg 82 kg Intake: IV 500 / 500 4100 / 4100 Precedex Inj 200 MCG In NS Inj 50 / 50 48 ML @ 0.2 MCG/KG/HR 3.92 mls/ hr IV.CONT TITRATE PRN Rx#: [id number] D5W/1/2 NS Inj 1,000 ML @ 100 2000 / 2000 mls/hr IV.CONT .Q10H YASMEEN Rx#: [id number] Diprivan 1000 mg/100 ml Inj 1, 100 / 100 100 / 100 000 mg In 100 ml @ 5 MCG/KG/MIN 2.355 mls/hr IV.CONT TITRATE PRN Rx#:[id number] Ampicillin Inj 2,000 MG In NS 200 / 200 200 / 200 Inj 100 ML @ 400 mls/hr IV.SIG Q4H YASMEEN Rx#:[id number] Magnesium Sulfate Inj 2 GM In 100 / 100 NS Inj 96 ML @ 50 mls/hr IV.SIG UNSCH PRN Rx#:[id number] NS Inj 1,000 ML @ 1000 mls/hr 1000 / 1000 IV.SIG BOLUS YASMEEN Rx#:[id number] NS Inj 500 ML @ 1000 mls/hr IV. 500 / 500 SIG BOLUS YASMEEN Rx#:[id number] Rocephin Inj 1,000 MG In NS Inj 100 / 100 100 ML @ 200 mls/hr IV.SIG Q24H YASMEEN Rx#:[id number] fentaNYL 10 mcg/mL Premix Drip 250 / 250 2,500 mcg In 250 ml @ 50 MCG/HR 5 mls/hr IV.SIG TITRATE PRN Rx #:[id number] Output: Urine Amount (Catheter) 570 / 570 500 / 500 Indwelling Urethral Catheter 570 / 570 500 / 500 Other: # Voids 1 # Incontinent Voids 1 Date of Last Bowel Movement 08/19/18 08/19/18 Weight On Admission 78.5 kg Result Diagrams: 08/21/18 06:28 08/21/18 06:28 Other Results: Laboratory Results WBC 20.8 th/mm3 (4.0-11.0) H 08/21/18 06:28 RBC 2.88 mil/mm3 (4.00-5.30) L 08/21/18 06:28 Hgb 10.0 gm/dL (11.6-15.3) L D 08/21/18 06:28 Hct 29.1 % (35.0-46.0) L 08/21/18 06:28 MCV 101.1 fL (80.0-100.0) H 08/21/18 06:28 MCH 34.8 pg (27.0-34.0) H 08/21/18 06:28 MCHC 34.4 % (32.0-36.0) 08/21/18 06:28 RDW 13.5 % (11.6-17.2) 08/21/18 06:28 Plt Count 187 th/mm3 (150-450) 08/21/18 06:28 MPV 8.4 fL (7.0-11.0) 08/21/18 06:28 Prelim Diff (Auto) Slide review pending 08/21/18 06:28 Neut % (Auto) 90.4 % (16.0-70.0) H 08/21/18 06:28 Lymph % (Auto) 4.4 % (9.0-44.0) L 08/21/18 06:28 [place] % (Auto) 4.9 % (0.0-8.0) 08/21/18 06:28 Eos % (Auto) 0.1 % (0.0-4.0) 08/21/18 06:28 Baso % (Auto) 0.2 % (0.0-2.0) 08/21/18 06:28 Neut # (Auto) 18.8 th/mm3 (1.8-7.7) H 08/21/18 06:28 Lymph # (Auto) 0.9 th/mm3 (1.0-4.8) L 08/21/18 06:28 [place] # (Auto) 1.0 th/mm3 (0.0-0.9) H 08/21/18 06:28 Eos # (Auto) 0.0 th/mm3 (0.0-0.4) 08/21/18 06:28 Baso # (Auto) 0.0 th/mm3 (0.0-0.2) 08/21/18 06:28 WBC Differential Manual diff final 08/21/18 06:28 Seg Neuts % (Manual) 76 % (16-70) H 08/21/18 06:28 Band Neuts % (Manual) 16 % (0-6) H 08/21/18 06:28 Lymphocytes % (Manual) 3 % (9-44) L 08/21/18 06:28 Monocytes % (Manual) 4 % (0-8) 08/21/18 06:28 Metamyelocytes % (Man) 1 % (0-1) 08/21/18 06:28 Abs Neuts (Manual) 19.3 th/mm3 (1.8-7.7) H 08/21/18 06:28 Differential Comment . 08/21/18 06:28 Platelet Estimate Normal (Normal) 08/21/18 06:28 Platelet Morphology Normal (Normal) 08/21/18 06:28 Puncture Site Art line 08/21/18 06:23 Patient Temperature 98.6 08/21/18 06:23 O2 Saturation 96 % (90-100) 08/21/18 06:23 ABG pH 7.34 (7.380-7.420) L 08/21/18 06:23 ABG pCO2 28 mmHg (38-42) L 08/21/18 06:23 ABG pO2 117 mmHG (61-120) 08/21/18 06:23 ABG HCO3 15 mmol/L (22-26) L* 08/21/18 06:23 ABG O2 Content 14.6 Vol % (12.0-20.0) 08/21/18 06:23 ABG Base Excess -10.0 mmol/L (-2-2) L 08/21/18 06:23 ABG Methemoglobin 1.9 % (0-2) 08/21/18 06:23 Ray Test Present 08/20/18 17:32 Hemoglobin 10.7 G/DL (12.0-16.0) L 08/21/18 06:23 Carboxyhemoglobin 0.5 % (0-4) 08/21/18 06:23 O2 Delivery Device Ventilator 08/21/18 06:23 Liter Flow 15.00 L/M 08/20/18 09:48 Vent Setting Prvc / ac / 08/21/18 06:23 Inspired O2 45 % 08/21/18 06:23 Critical Value Yes 08/21/18 06:23 Sodium 141 meq/L (136-145) 08/21/18 06:28 Potassium 4.5 meq/L (3.5-5.1) 08/21/18 06:28 Chloride 116 meq/L (98-107) H 08/21/18 06:28 Carbon Dioxide 18.1 meq/L (21.0-32.0) L 08/21/18 06:28 Anion Gap 7 meq/L (5-15) 08/21/18 06:28 BUN 12 mg/dL (7-18) 08/21/18 06:28 Creatinine 0.65 mg/dL (0.50-1.00) 08/21/18 06:28 Estimated GFR Greater than 89 mL/min (>89) 08/21/18 06:28 POC Glucose 114 mg/dl (68-110) H 08/21/18 00:46 Random Glucose 122 mg/dL (74-106) H 08/21/18 06:28 Lactic Acid 1.8 mmol/L (0.4-2.0) 08/21/18 06:28 Calcium 6.9 mg/dL (8.5-10.1) L* D 08/21/18 06:28 Calcium Adj for Albumin 8.3 mg/dL (8.5-10.1) L 08/21/18 06:28 Phosphorus 2.3 mg/dL (2.5-4.9) L 08/21/18 06:28 Magnesium 2.0 mg/dL (1.5-2.5) 08/21/18 06:28 Albumin 2.3 g/dL (3.4-5.0) L 08/21/18 06:28 Nasal Screen MRSA (PCR) Not detected (Negative) 08/20/18 09:31 Impressions Chest X-Ray 08/20/18 14:24 CONCLUSION: Endotracheal tube and nasogastric tube in good position. Subsegmental basilar airspace disease. Objective Remarks: GENERAL: This is a well developed well nourished female in moderate distress this am actively vomiting SKIN: Warm and dry. HEAD: Atraumatic. Normocephalic. EYES: Pupils equal and round. EOMI. No scleral icterus. No injection or drainage. ENT: No nasal bleeding or discharge. Mucous membranes pink and moist. NECK: Trachea midline. No JVD. CARDIOVASCULAR: Normal rate, regular rhythm. RESPIRATORY: No accessory muscle use. Clear to auscultation. Breath sounds equal bilaterally. GASTROINTESTINAL: Abdomen soft, non-tender, nondistended. No guarding. movement noted. MUSCULOSKELETAL: Extremities without clubbing, cyanosis, or edema. No obvious deformities. NEUROLOGICAL: Awake and alert. RASS 0, on Precedex 0.3 mcg/kg/hr. No gross focal /sensory deficits. Follows commands in all 4 extremities. Procedures: 08/20: Intubation Assessment and Plan - Problem List (1) Asthma exacerbation Code(s): J45.901 - Unspecified asthma with (acute) exacerbation Status: Acute (2) Asthma with acute exacerbation in adult Code(s): J45.901 - Unspecified asthma with (acute) exacerbation Status: Acute (3) 20 weeks gestation of Code(s): Z3A.20 - 20 weeks gestation of Status: Acute - Assessment and Plan Plan: Plan by systems: Neurologic: Anxiety disorder Patient initially placed on propofol and fentanyl infusions to maintain ventilator synchrony, now placed on hold Patient continues on Precedex infusion, to maintain ventilator synchrony in anticipation of SBT and possible extubation Ativan 0.5 mg every 6 hours as needed for anxiety/agitation, placed on hold. Discussed with OB karolina Faustin in Versed discontinued Vistaril 50 mg IM every 6 hours as needed for anxiety Acetaminophen 650 mg every 6 hours as needed Respiratory: Productive cough Acute asthma exacerbation Pneumonia Wean FiO2 maintain O2 saturation 93-95% Albuterol every 2 hours as needed Duo nebs every 4 hours as needed Methylprednisolone 60 mg IV x 1 dose initially, methylprednisolone 40 mg every 12 hours Magnesium 2 g IV over 20-min x 1 dose Pulmonology following Patient was previously on a Zithromax-Rocephin and ampicillin (day 2) F/U sputum culture arterial line for serial blood gas monitoring 08/20 CXR-bilateral lower airspace disease Cardiovascular: Sinus tachycardia Maintain map greater than 65mmHG Tachycardia secondary to bouts of agitation Renal: No Rodriguez indicated -- Strict I/Os FEN/GI: Maintain n.p.o. status for now, 2/2 persistent nausea and vomiting Insert OGT and continue on LIWS Obtain abdominal ultrasound complete Will place a dietary consult for initiation of tube feeds for possibly this evening if patient is not extubated and upon results abdominal ultrasound D5 half-normal saline at 100 cc/hr Zofran for nausea Heme/ID: Lactic acidemia-resolved Leukocytosis F/U CBC Obtain blood culture x 2. empiric antibiotics Rocephin and ampicillin Influenza nasal swab and strep pneumo antigen-negative F/U sputum culture ID has been consulted Endocrine: Glucose monitoring per ICU protocol -- SSI Prophylaxis: GI Prophylaxis Famotidine twice daily DVT Prophylaxis -- SCDs, Heparin SQ BID Lines: Peripheral IVs x2. Central line if indicated Dispo: My billing statement This patient remains critically ill with one or more organ systems which are or may become a threat to life. I have spent in excess of 35 minutes discontinuously in the care and management of this patient. This time is exclusive of procedures, and includes, but is not limited to, evaluation of the patient, review of the medical record, discussions with family, consultants, nursing staff, or respiratory therapy, and documentation in the medical record. Code Status: Full Discussed Condition With: Patient's significant other, patient and ELECTRIC SEALING MACHINE OPERATOR at bedside
[2018-08-21] MEDS: Famotidine PF Inj 20 MG/2 ML Vial IV.PUSH SCH ×2 (09:01→20:14)
[2018-08-21] MEDS: Prenatal Vitamin Chewable Tablet CHEW SCH (09:01)
[2018-08-21] MEDS: Enoxaparin Inj 40 MG/0.4 ML Syringe SQ SCH (09:01)
[2018-08-21] MEDS: Chlorhexidine 0.12% Oral Kit 15 ML UDC OROPHARYNG SCH ×2 (09:02→19:38)
[2018-08-21] MEDS: Budesonide-Formoterol 160/4.5 MCG 6 GM Inhaler INH SCH ×2 (09:02→20:15)
[2018-08-21] MEDS: Dexmedetomidine Inj 1,000 MCG in Sodium Chlor 0.9% Inj 240 ML IV.CONT PRN ×2 (09:09→19:36)
--- NOTE | 2018-08-21 10:12 | US ---
EXAM DATE: 08/21/2018 9:59 AM EST AGE/SEX: 28 years / Female INDICATIONS: Nausea and vomiting. Metabolic acidosis. CLINICAL DATA: This is the patient's initial encounter. Patient reports that signs and symptoms have been present for 1 day and indicates a pain score of 0/10. MEDICAL/SURGICAL HISTORY: . . Epesiotomy. COMPARISON: [facility], US PELVIS ([facility] PREG/ECTOPIC), 06/19/2018. . MEASUREMENTS: Liver:__ 18.6 cm. Common Bile Duct:___ 4mm. Right Kidney:___12.0 x 4.4 x 4.0 cm. Left Kidney:___13.2 x 5.0 x 5.8 cm. Spleen:___12.1 cm. FINDINGS: Liver: Normal echogenicity without focal lesion or ductal dilatation. Portal Vein: Hepatopedal flow seen in portal vein. Common Duct: No intraluminal mass or stone visualized. Gallbladder: Demonstrates no wall thickening or pericholecystic fluid. No stones visualized. Pancreas: The visualized portions are within normal limits Right Kidney: Normal echogenicity and cortical thickness. No mass or hydronephrosis. Left Kidney: Normal echogenicity and cortical thickness. No mass or hydronephrosis. Ascites: None Pleural Effusion: Small right pleural effusion Spleen: No focal lesion. Aorta: Non aneurysmal. IVC: Within normal limits Other: None. CONCLUSION: 1. Mild hepatomegaly, nonspecific. 2. Small right pleural effusion. Electronically signed by: Manuel French MD Board Certified Radiologist 08/21/2018 10:10 AM EST
--- NOTE | 2018-08-21 12:10 | MB ---
cc: Dalton No MD DATE: 08/21/2018 REQUESTING PHYSICIAN: Dr. Osorio. REASON: Leukocytosis, elevated lactate. HISTORY OF PRESENT ILLNESS: She is a 28-year-old white female who is 20 weeks . The patient has history of COPD. She was admitted to [facility] and subsequently transferred to [place] for further management. She was intubated; currently on the ventilator. The patient had presented to [facility] 3 nights ago with shortness of breath and she was given steroids and albuterol inhaler and discharged and after several hours she returned because she was having trouble breathing and this prompted further treatment and was transferred to [facility]. The patient's fiance is at bedside. He is aware of her health. He states that she did not have any major problems in the days prior, but she has had to use her inhaler more frequently recently. She had no sputum production or coughing around the time that she had developed the difficulty breathing. She has had no fever. She was given Solu-Medrol on 08/18/2018 and again on 08/19/2018 and received prednisone as well. Her white count was 15,000 on 08/19/2018 and the white count the right count ashlyn to 24.3 on 08/20/2018 and today it is 20.8. Sputum culture pending. Nasal influenza test is negative. Chest x-ray was performed and showed no acute cardiopulmonary disease initially and then a subsequent chest x-ray on the same day, on 08/20/2018, after intubation shows subsegmental bibasilar airspace disease. The patient was also evaluated by DIGITAL MEDIA REPRESENTATIVE. Currently, her heart rate is 76 and temperature is 98.3. Lactic acid on 08/20/2018 was 3.0 and it has decreased to 1.8. The renal function is normal. Information is obtained from the medical record. The patient is intubated and unable to verbally communicate at this time. PAST MEDICAL HISTORY: Significant for asthma, history of episiotomy. ALLERGIES: 1. IBUPROFEN 2. ASPIRIN. 3. NSAIDS. MEDICATIONS: 1. Ampicillin. 2. Ceftriaxone. 3. Symbicort. 4. Precedex. 5. Pepcid. 6. Lovenox. 7. Fentanyl. 8. Vistaril. 9. Magnesium. 10. Methylprednisolone. 11. vitamin. 12. Diprivan. SOCIAL HISTORY: No tobacco. The patient is a former smoker. No alcohol. No illicit drugs. FAMILY HISTORY: Unable to obtain. REVIEW OF SYSTEMS: Unable to obtain. PHYSICAL EXAMINATION: GENERAL: This is a well-developed female who is on the ventilator. She is currently sedated. VITAL SIGNS: Includes temperature of 98.3, heart rate 66. HEENT: Unable to fully assess since the patient is intubated. The head is atraumatic. No icterus. Oropharynx is intubated. NECK: No swelling. No adenopathy. LUNGS: Clear breath sounds bilaterally. HEART: Regular S1 and S2, without murmurs, rubs or gallops. ABDOMEN: Bowel sounds present; distended, soft. No tenderness appreciated. RECTAL: Not performed. EXTREMITIES: No clubbing, cyanosis or edema. SKIN: No rash. NEUROLOGIC: Unable to assess. PSYCHIATRIC: Unable to assess. LABORATORY DATA: WBC 20.8, platelets 187, 90% neutrophils, 4% lymphocytes, 4% monocytes. Creatinine 0.65, BUN 12. Estimated GFR greater than 89. IMPRESSION: 1. Asthma exacerbation. 2. Respiratory failure. 3. Leukocytosis. At this point, it is unclear whether the leukocytosis is due to infection. She has been receiving steroids and it could be associated; however, she does have a left shift and therefore there is a small chance that it could be due to infection. She does not have any significant endotracheal secretions suggesting purulent sputum. The lactic acid may also be transient due to the acute illness. RECOMMENDATIONS: 1. Discontinue ampicillin. 2. Discontinue ceftriaxone. 3. Begin piperacillin/tazobactam to offer better gram-negative coverage while awaiting the sputum culture. 4. Follow sputum culture. 5. Continue to monitor white blood cell count. 6. Monitor for clinical signs of infection. 7. Monitor clinical status. Thank you for this consultation. I will monitor the patient's progress and make further recommendations upon followup if necessary. MD ISMA Hare/toy , 11:35 AM , 11:[address] [facility]
--- NOTE | 2018-08-21 12:55 | P.DIET ---
Nutritional Evaluation Type of nutrition evaluation: initial Nutrition consult regarding: Tube Feeding Nutrition screening: MDC (TF'ing) Screening comments: 08/21/18 MDC for TF'ing Objective - Diagnosis asthma exacerbation - Objective Body Mass Index: 33.1 % IBW: 164 (IBW = 110lb) Body Weight Used for Calculations: IBW (for energy needs), Actual (for protein needs 82kg) Energy Needs - Lower Range (kCal/kg): 30 Energy Needs - Upper Range (kCal/kg): 35 Lower Limit kCal/kg (kCals): 1,800 (+300kcal for 2nd trimester) Upper Limit kCal/kg (kCals): 2,050 Lower Limit Protein Factor (Grams per Kg): 1.0 Upper Limit Protein Factor (Grams per Kg): 1.3 Lower Protein Needs (Protein): 82 Upper Protein Needs (Protein): 107 Dietitian Reviewed in Medical Record: Curent medications, Intake & Output, Labs , Medical history Diet Order: NPO Objective Comments: PMH: asthma Meds: fentanyl, insulin, versed, propofol Labs: POC 140 114, Ca+ 6.9 LBM 08/19/18 Assessment Assessment: Pt currently at nutritional risk r/t need for TF'ing as nutritional support. Pt intubated, sedated w/ propofol/versed, and on mech vent. Pt is on her 2nd trimester, 20 weeks gestation, increased energy needs as assessed above. MDC for TF'ing received today. Pt NPO now d/t nausea and vomiting per MD and will be receiving TF if pt is not extubated by this evening. RD to recommend Jevity 1.5 @ 55mL/hr to provide 1980kcal, 84g of protein, and 1003mL of free water to best meet pts nutritional needs. Propofol will provide additional kcal (1.1kcal/mL) while running. Continue to monitor TF tolerance. Labs reviewed, dietitian following. Recommendations: 1. If pt unable to extubate, RD to recommend Jevity 1.5 @ 55mL/hr to best meet pts nutritional needs 2. Propofol will provide additional kcal (1.1kcal/mL) while running 3. Continue to monitor TF tolerance 4. Dietitian following Dietitian to Monitor: Lab values, Glucose level, Intake & Output, Tube feeding tolerance, Weight change, Medical course
[2018-08-21] MEDS: Piperacil/Tazo 3.375 GM Premix 3.375 GM/50 ML PIGGYBACK IV.SIG SCH ×2 (15:13→20:15)
--- NOTE | 2018-08-21 20:12 | P.PNPL ---
Subjective Interval history: 28 YOWF, , with Br asthma exac On Vent Sedated with Precedex Had Vomiting once no fever Physical Exam Vital signs: Vital Signs 08/20/18 22:00 08/20/18 22:30 08/20/18 22:45 Temperature Pulse Rate 83 148 H 105 H Respiratory Rate 25 H 20 Blood Pressure 154/90 H 126/66 Pulse Oximetry 95 96 08/20/18 22:57 08/20/18 22:58 08/20/18 23:00 Temperature Pulse Rate 105 H 101 H Respiratory Rate 14 18 12 Blood Pressure 103/59 L Pulse Oximetry 96 97 08/20/18 23:13 08/20/18 23:15 08/20/18 23:30 Temperature Pulse Rate 96 H 93 H 135 H Respiratory Rate 12 12 19 Blood Pressure 99/54 L 97/54 L 121/66 Pulse Oximetry 97 98 97 08/20/18 23:45 08/21/18 00:00 08/21/18 00:15 Temperature Pulse Rate 96 H 130 H 142 H Respiratory Rate 12 20 20 Blood Pressure 127/66 123/67 132/67 Pulse Oximetry 96 83 L 100 08/21/18 00:30 08/21/18 00:45 08/21/18 01:00 Temperature Pulse Rate 102 H 97 H 95 H Respiratory Rate 12 12 12 Blood Pressure 98/51 L 98/55 L 109/59 L Pulse Oximetry 95 97 98 08/21/18 01:15 08/21/18 01:30 08/21/18 01:45 Temperature Pulse Rate 95 H 116 H 103 H Respiratory Rate 12 14 12 Blood Pressure 107/56 L 114/64 113/62 Pulse Oximetry 98 100 98 08/21/18 02:00 08/21/18 02:07 08/21/18 02:30 Temperature Pulse Rate 112 H 97 H 89 Respiratory Rate 12 12 12 Blood Pressure 110/60 87/49 L 92/55 L Pulse Oximetry 95 98 99 08/21/18 02:46 08/21/18 03:00 08/21/18 03:15 Temperature Pulse Rate 112 H 88 82 Respiratory Rate 18 12 12 Blood Pressure 98/56 L 93/50 L 93/53 L Pulse Oximetry 96 100 100 08/21/18 03:30 08/21/18 04:00 08/21/18 04:01 Temperature Pulse Rate 81 105 H 93 H Respiratory Rate 12 17 13 Blood Pressure 94/52 L 104/50 L Pulse Oximetry 100 72 L 95 08/21/18 04:02 08/21/18 04:15 08/21/18 04:30 Temperature Pulse Rate 92 H 102 H 102 H Respiratory Rate 16 16 22 Blood Pressure 94/50 L 95/57 L Pulse Oximetry 98 97 97 08/21/18 04:45 08/21/18 05:00 08/21/18 05:15 Temperature Pulse Rate 115 H 101 H 122 H Respiratory Rate 21 19 23 Blood Pressure 99/60 L 111/55 L 121/55 L Pulse Oximetry 100 97 96 08/21/18 06:00 08/21/18 07:44 08/21/18 08:00 Temperature 98.3 F Pulse Rate 78 89 Respiratory Rate 15 14 14 Blood Pressure 101/55 L Pulse Oximetry 96 100 08/21/18 09:19 08/21/18 10:00 08/21/18 11:41 Temperature Pulse Rate 92 H 76 72 Respiratory Rate 18 20 Blood Pressure Pulse Oximetry 99 08/21/18 12:00 08/21/18 13:27 08/21/18 14:00 Temperature 97.7 F Pulse Rate 72 57 L 63 Respiratory Rate 14 18 Blood Pressure 99/58 L Pulse Oximetry 100 08/21/18 14:30 08/21/18 15:41 08/21/18 16:00 Temperature 98.2 F Pulse Rate 73 66 Respiratory Rate 13 14 14 Blood Pressure 103/60 Pulse Oximetry 100 97 08/21/18 18:00 08/21/18 18:34 08/21/18 19:46 Temperature Pulse Rate 58 L 81 Respiratory Rate 15 16 Blood Pressure Pulse Oximetry 100 100 Intake & Output 08/21/18 08/21/18 08/22/18 06:59 18:59 06:59 Intake Total 4100 / 4100 1375 / 1375 250 / 250 Output Total 500 / 500 800 / 800 Balance 3600 / 3600 575 / 575 250 / 250 Weight 82 kg Intake: IV 4100 / 4100 1325 / 1325 250 / 250 Precedex Inj 1,000 MCG In NS 250 / 250 Inj 240 ML @ 0.2 MCG/KG/HR 3.92 mls/hr IV.CONT TITRATE PRN Rx# :[id number] Precedex Inj 200 MCG In NS Inj 50 / 50 35 / 35 48 ML @ 0.2 MCG/KG/HR 3.92 mls/ hr IV.CONT TITRATE PRN Rx#: [id number] D5W/1/2 NS Inj 1,000 ML @ 100 2000 / 2000 1000 / 1000 mls/hr IV.CONT .Q10H [facility] Rx#: [id number] Diprivan 1000 mg/100 ml Inj 1, 100 / 100 15 / 15 000 mg In 100 ml @ 5 MCG/KG/MIN 2.355 mls/hr IV.CONT TITRATE PRN Rx#:[id number] Ampicillin Inj 2,000 MG In NS 200 / 200 200 / 200 Inj 100 ML @ 400 mls/hr IV.SIG Q4H [facility] Rx#:[id number] Zosyn 3.375 GM Premix 3.375 gm 50 / 50 In 50 ml @ 100 mls/hr IV.SIG Q6H [facility] Rx#:[id number] NS Inj 1,000 ML @ 1000 mls/hr 1000 / 1000 IV.SIG BOLUS [facility] Rx#:[id number] NS Inj 500 ML @ 1000 mls/hr IV. 500 / 500 SIG BOLUS [facility] Rx#:[id number] fentaNYL 10 mcg/mL Premix Drip 250 / 250 25 / 25 2,500 mcg In 250 ml @ 50 MCG/HR 5 mls/hr IV.SIG TITRATE PRN Rx #:[id number] Tube Feeding 0 / 0 Water Bolus Amount 50 / 50 Output: Emesis 100 / 100 Urine Amount (Catheter) 500 / 500 700 / 700 Indwelling Urethral Catheter 500 / 500 700 / 700 Other: Date of Last Bowel Movement 08/19/18 # Bowel Movements 0 GENERAL: WBWN On Vent SKIN: Warm and dry. HEAD: Normocephalic. EYES: No scleral icterus. No injection or drainage. NECK: Supple, trachea midline. No JVD or lymphadenopathy. CARDIOVASCULAR: Regular rate and rhythm without murmurs, gallops, or rubs. RESPIRATORY: Breath sounds equal bilaterally. No accessory muscle use. GASTROINTESTINAL: Abdomen soft, non-tender, nondistended. MUSCULOSKELETAL: No cyanosis, or edema. BACK: Nontender without obvious deformity. No CVA tenderness. - Urinary Catheter Management Indwelling Urethral Catheter Cath placed during this visit: yes Reason for continuing: Hourly intake/output Insertion date: 08/20/18 Insertion time: 14:45 Assessment and Plan - Plan IMPRESSION: VDRF Br asthma exac Bronchitis PLAN: Vent Support Sedation with Precedex Cont Abx per ID Cont Steroids CPAP trial in AM DW her Reece at BS
[2018-08-22] MEDS: Insulin NovoLOG Aspart Correctional Sugar Inj SQ SCH ×5 (00:15→23:51)
[2018-08-22] MEDS: Oral Hygiene Kit OROPHARYNG SCH ×5 (00:15→23:51)
[2018-08-22] MEDS: Dextrose 5%/NaCl 0.45% Inj 1,000 ML IV.CONT SCH ×3 (00:56→22:02)
[2018-08-22] MEDS: Piperacil/Tazo 3.375 GM Premix 3.375 GM/50 ML PIGGYBACK IV.SIG SCH ×4 (02:13→20:49)
[2018-08-22] MEDS: Chlorhexidine Gluconate 2% 1 Pack (2 Cloths) TOPICAL SCH ×2 (03:15)
[2018-08-22 03:54] LABS: ABG Base Excess -7.8 mmol/L (-2-2); ABG PCO2 23 mmHg (38-42); ABG PO2 119 mmHG (61-120)
[2018-08-22 06:28] LABS: Hemoglobin 10.7 gm/dL (11.6-15.3); Lymph # (Auto) 0.9 th/mm3 (1.0-4.8); Lymph % (Auto) 6.1 % (9.0-44.0); Mean Corpuscular HGB Conc 34.4 % (32.0-36.0); Mean Corpuscular Hemoglobin 34.2 pg (27.0-34.0); Mean Corpuscular Volume 99.4 fL (80.0-100.0); Mean Platelet Volume 8.7 fL (7.0-11.0); Mono # (Auto) 0.7 th/mm3 (0.0-0.9); Mono % (Auto) 5.1 % (0.0-8.0); Neut # (Auto) 12.9 th/mm3 (1.8-7.7); Neut % (Auto) 88.8 % (16.0-70.0); Platelet Count 190 th/mm3 (150-450); Red Blood Count 3.12 mil/mm3 (4.00-5.30); Red Cell Distribution Width 13.4 % (11.6-17.2); White Blood Count 14.5 th/mm3 (4.0-11.0)
[2018-08-22 07:03] LABS: Anion Gap 9 meq/L (5-15); Blood Urea Nitrogen 9 mg/dL (7-18); Calcium 7.6 mg/dL (8.5-10.1); Carbon Dioxide 19.2 meq/L (21.0-32.0); Chloride 114 meq/L (98-107); Glomerular Filtration Rate Greater Than 89 mL/min (>89); Glucose,Random 120 mg/dL (74-106); Magnesium 2.2 mg/dL (1.5-2.5); Phosphorus 2.5 mg/dL (2.5-4.9); Potassium 4.1 meq/L (3.5-5.1); Sodium 142 meq/L (136-145)
--- NOTE | 2018-08-22 07:41 | P.PNCC ---
Subjective Subjective Remarks/Hospital Course: 08/21: Last evening the patient's ABG worsen patient's respiratory status deteriorated the patient required intubation and mechanical ventilation .labs obtained the patient was noted to have a leukocytosis cultures were obtained empiric antibiotics were initiated to include ampicillin and Rocephin both discussed with SOA ENGINEER Dr. Gonsalez. ID was also consulted. this a.m. the patient's oxygen requirements decreased overnight. Patient transition to Precedex in anticipation for possible extubation today. The patient was on low-dose Precedex 0.3 mcgs/kg/hr. This a.m. the patient complained chest tightness, butyryl neb nebulizer was provided. Patient has OGT in situ the patient began vomiting, NG tube placed on suctioned, subsequently dislodged from vomiting, and removed. Patient became extremely agitated. Precedex infusion increased. Discussed case with Dr. Gonsalez at bedside plan for Vistaril 50 mg IM every 6 hours as recommended. Patient complaining of persistent nausea, Zofran continued at every 6 hours as needed. 08/22: No acute events overnight. The patient remains on Precedex infusion at 1 tita per kilo per hour peer the patient continues to give Vistaril 50 mg every 6 IM secondary to extreme agitation/anxiety . FiO2 requirements have been significantly decreased to 30%. Patient continues successfully on CPAP trials , plan for SBT parameters and possible extubation this a.m. The patient remains n.p.o. , dietary consult has been recommending Jevity 1.5 we will hold at this time for in anticipation of possible extubation. Ultrasound bilateral lower extremities are pending peer abdominal ultrasound yesterday was performed which showed no common bile duct dilatation concern for continued metabolic acidosis. Objective Vital Signs / I&O: Vital Signs 08/21/18 07:44 08/21/18 08:00 08/21/18 09:19 Temperature 98.3 F Pulse Rate 89 92 H Respiratory Rate 14 14 18 Blood Pressure 101/55 L Pulse Oximetry 96 100 08/21/18 10:00 08/21/18 11:41 08/21/18 12:00 Temperature 97.7 F Pulse Rate 76 72 72 Respiratory Rate 20 14 Blood Pressure 99/58 L Pulse Oximetry 99 100 08/21/18 13:27 08/21/18 14:00 08/21/18 14:30 Temperature Pulse Rate 57 L 63 Respiratory Rate 18 13 Blood Pressure Pulse Oximetry 100 02/18/19 15:41 08/21/18 16:00 08/21/18 18:00 Temperature 98.2 F Pulse Rate 73 66 58 L Respiratory Rate 14 14 Blood Pressure 103/60 Pulse Oximetry 97 08/21/18 18:34 08/21/18 19:46 08/21/18 20:00 Temperature 97.5 F L Pulse Rate 81 81 Respiratory Rate 15 16 18 Blood Pressure 120/58 L Pulse Oximetry 100 100 100 08/21/18 22:00 08/22/18 00:00 08/22/18 00:07 Temperature 97.8 F Pulse Rate 59 L 68 Respiratory Rate 16 14 18 Blood Pressure 115/66 Pulse Oximetry 100 99 08/22/18 00:17 08/22/18 01:34 08/22/18 02:00 Temperature Pulse Rate 67 116 H 86 Respiratory Rate 18 23 Blood Pressure Pulse Oximetry 08/22/18 03:32 08/22/18 04:00 08/22/18 04:22 Temperature 98.2 F Pulse Rate 102 H 154 H Respiratory Rate 20 22 17 Blood Pressure 137/65 Pulse Oximetry 100 99 08/22/18 05:36 08/22/18 06:00 Temperature Pulse Rate 102 H 81 Respiratory Rate 18 Blood Pressure Pulse Oximetry Intake & Output 08/21/18 08/22/18 08/22/18 18:59 06:59 18:59 Intake Total 1375 / 1375 2094 / 2094 Output Total 800 / 800 1600 / 1600 Balance 575 / 575 494 / 494 Weight 82.4 kg Intake: IV 1325 / 1325 2034 / 2034 Precedex Inj 1,000 MCG In NS 454 / 454 Inj 240 ML @ 0.2 MCG/KG/HR 3.92 mls/hr IV.CONT TITRATE PRN Rx# :[id number] Precedex Inj 200 MCG In NS Inj 35 / 35 48 ML @ 0.2 MCG/KG/HR 3.92 mls/ hr IV.CONT TITRATE PRN Rx#: [id number] D5W/1/2 NS Inj 1,000 ML @ 100 1000 / 1000 1480 / 1480 mls/hr IV.CONT .Q10H [facility] Rx#: [id number] Diprivan 1000 mg/100 ml Inj 1, 15 / 15 000 mg In 100 ml @ 5 MCG/KG/MIN 2.355 mls/hr IV.CONT TITRATE PRN Rx#:[id number] Ampicillin Inj 2,000 MG In NS 200 / 200 Inj 100 ML @ 400 mls/hr IV.SIG Q4H [facility] Rx#:[id number] Zosyn 3.375 GM Premix 3.375 gm 50 / 50 100 / 100 In 50 ml @ 100 mls/hr IV.SIG Q6H [facility] Rx#:[id number] fentaNYL 10 mcg/mL Premix Drip 25 / 25 2,500 mcg In 250 ml @ 50 MCG/HR 5 mls/hr IV.SIG TITRATE PRN Rx #:[id number] Tube Feeding 0 / 0 Water Bolus Amount 50 / 50 60 / 60 Output: Emesis 100 / 100 Urine Amount (Catheter) 700 / 700 1600 / 1600 Indwelling Urethral Catheter 700 / 700 1600 / 1600 Other: # Bowel Movements 0 0 Result Diagrams: 08/22/18 05:29 08/22/18 05:29 Other Results: Laboratory Results WBC 14.5 th/mm3 (4.0-11.0) H 08/22/18 05:29 RBC 3.12 mil/mm3 (4.00-5.30) L 08/22/18 05:29 Hgb 10.7 gm/dL (11.6-15.3) L 08/22/18 05:29 Hct 31.0 % (35.0-46.0) L 08/22/18 05:29 MCV 99.4 fL (80.0-100.0) 08/22/18 05:29 MCH 34.2 pg (27.0-34.0) H 08/22/18 05:29 MCHC 34.4 % (32.0-36.0) 08/22/18 05:29 RDW 13.4 % (11.6-17.2) 08/22/18 05:29 Plt Count 190 th/mm3 (150-450) 08/22/18 05:29 MPV 8.7 fL (7.0-11.0) 08/22/18 05:29 Prelim Diff (Auto) Slide review pending 08/21/18 06:28 Neut % (Auto) 88.8 % (16.0-70.0) H 08/22/18 05:29 Lymph % (Auto) 6.1 % (9.0-44.0) L 08/22/18 05:29 Bracken % (Auto) 5.1 % (0.0-8.0) 08/22/18 05:29 Eos % (Auto) 0.0 % (0.0-4.0) 08/22/18 05:29 Baso % (Auto) 0.0 % (0.0-2.0) 08/22/18 05:29 Neut # (Auto) 12.9 th/mm3 (1.8-7.7) H 08/22/18 05:29 Lymph # (Auto) 0.9 th/mm3 (1.0-4.8) L 08/22/18 05:29 Bracken # (Auto) 0.7 th/mm3 (0.0-0.9) 08/22/18 05:29 Eos # (Auto) 0.0 th/mm3 (0.0-0.4) 08/22/18 05:29 Baso # (Auto) 0.0 th/mm3 (0.0-0.2) 08/22/18 05:29 WBC Differential . 08/22/18 05:29 Seg Neuts % (Manual) 76 % (16-70) H 08/21/18 06:28 Band Neuts % (Manual) 16 % (0-6) H 08/21/18 06:28 Lymphocytes % (Manual) 3 % (9-44) L 08/21/18 06:28 Monocytes % (Manual) 4 % (0-8) 08/21/18 06:28 Metamyelocytes % (Man) 1 % (0-1) 08/21/18 06:28 Abs Neuts (Manual) 19.3 th/mm3 (1.8-7.7) H 08/21/18 06:28 Differential Comment Auto diff final 08/22/18 05:29 Platelet Estimate Normal (Normal) 08/21/18 06:28 Platelet Morphology Normal (Normal) 08/21/18 06:28 Puncture Site Art line 08/22/18 03:41 Patient Temperature 98.6 08/22/18 03:41 O2 Saturation 96 % (90-100) 08/22/18 03:41 ABG pH 7.45 (7.380-7.420) H 08/22/18 03:41 ABG pCO2 23 mmHg (38-42) L* 08/22/18 03:41 ABG pO2 119 mmHG (61-120) 08/22/18 03:41 ABG HCO3 15 mmol/L (22-26) L* 08/22/18 03:41 ABG O2 Content 13.1 Vol % (12.0-20.0) 08/22/18 03:41 ABG Base Excess -7.8 mmol/L (-2-2) L 08/22/18 03:41 ABG Methemoglobin 1.8 % (0-2) 08/22/18 03:41 Ray Test Present 08/22/18 03:41 Hemoglobin 9.5 G/DL (12.0-16.0) L 08/22/18 03:41 Carboxyhemoglobin 0.7 % (0-4) 08/22/18 03:41 O2 Delivery Device Ventilator 08/22/18 03:41 Liter Flow 15.00 L/M 08/20/18 09:48 Vent Setting Prvc12/500/0.9/+5 08/22/18 03:41 Inspired O2 40 % 08/22/18 03:41 Critical Value Yes 08/22/18 03:41 Sodium 142 meq/L (136-145) 08/22/18 05:29 Potassium 4.1 meq/L (3.5-5.1) 08/22/18 05:29 Chloride 114 meq/L (98-107) H 08/22/18 05:29 Carbon Dioxide 19.2 meq/L (21.0-32.0) L 08/22/18 05:29 Anion Gap 9 meq/L (5-15) 08/22/18 05:29 BUN 9 mg/dL (7-18) 08/22/18 05:29 Creatinine 0.68 mg/dL (0.50-1.00) 08/22/18 05:29 Estimated GFR Greater than 89 mL/min (>89) 08/22/18 05:29 POC Glucose 99 mg/dl (68-110) 08/21/18 23:18 Random Glucose 120 mg/dL (74-106) H 08/22/18 05:29 Lactic Acid 1.8 mmol/L (0.4-2.0) 08/21/18 06:28 Calcium 7.6 mg/dL (8.5-10.1) L 08/22/18 05:29 Calcium Adj for Albumin 8.3 mg/dL (8.5-10.1) L 08/21/18 06:28 Phosphorus 2.5 mg/dL (2.5-4.9) 08/22/18 05:29 Magnesium 2.2 mg/dL (1.5-2.5) 08/22/18 05:29 Albumin 2.3 g/dL (3.4-5.0) L 08/21/18 06:28 Nasal Screen MRSA (PCR) Not detected (Negative) 08/20/18 09:31 Impressions Chest X-Ray 08/20/18 14:24 CONCLUSION: Endotracheal tube and nasogastric tube in good position. Subsegmental basilar airspace disease. Abdomen Ultrasound 08/21/18 00:00 CONCLUSION: 1. Mild hepatomegaly, nonspecific. 2. Small right pleural effusion. Objective Remarks: GENERAL: This is a well developed well nourished female in no acute distress . Communicating by writing SKIN: Warm and dry. HEAD: Atraumatic. Normocephalic. EYES: Pupils equal and round. EOMI. No scleral icterus. No injection or drainage. ENT: No nasal bleeding or discharge. Mucous membranes pink and moist. NECK: Trachea midline. No JVD. CARDIOVASCULAR: Normal rate, regular rhythm. Periods of sinus tachycardia RESPIRATORY: No accessory muscle use. Clear to auscultation. Breath sounds equal bilaterally. GASTROINTESTINAL: Abdomen soft, non-tender, nondistended. No guarding. movement noted. MUSCULOSKELETAL: Extremities without clubbing, cyanosis, or edema. No obvious deformities. NEUROLOGICAL: Awake and alert. RASS -1, on Precedex 0.9 mcg/kg/hr. No gross focal/sensory deficits. Follows commands in all 4 extremities. Procedures: 08/20: Intubation Assessment and Plan - Problem List (1) Asthma exacerbation Code(s): J45.901 - Unspecified asthma with (acute) exacerbation Status: Acute (2) Asthma with acute exacerbation in adult Code(s): J45.901 - Unspecified asthma with (acute) exacerbation Status: Acute (3) 20 weeks gestation of Code(s): Z3A.20 - 20 weeks gestation of Status: Acute - Assessment and Plan Plan: Plan by systems: Neurologic: Anxiety disorder Patient initially placed on propofol and fentanyl infusions to maintain ventilator synchrony, now placed on hold Patient continues on Precedex infusion, to maintain ventilator synchrony in anticipation of SBT and possible extubation Ativan 0.5 mg every 6 hours as needed for anxiety/agitation, placed on hold. Discussed with OB Dr. Sudhakar Gonsalez, ok in Versed discontinued Vistaril 50 mg IM every 6 hours as needed for anxiety Acetaminophen 650 mg every 6 hours as needed Respiratory: Productive cough Acute asthma exacerbation Pneumonia Wean FiO2 maintain O2 saturation 93-95% Albuterol every 2 hours as needed Duo nebs every 4 hours as needed Methylprednisolone 60 mg IV x 1 dose initially, methylprednisolone 40 mg every 12 hours Magnesium 2 g IV over 20-min x 1 dose Pulmonology following Patient was previously on a Zithromax-Rocephin and ampicillin (day 2) F/U sputum culture arterial line for serial blood gas monitoring 08/20 CXR-bilateral lower airspace disease Obtain ultrasound bilateral lower extremity Cardiovascular: Sinus tachycardia Maintain map greater than 65mmHG Tachycardia secondary to bouts of agitation Renal: No Rodriguez indicated -- Strict I/Os FEN/GI: Maintain n.p.o. status for now, 2/2 persistent nausea and vomiting Insert OGT and continue on LIWS Obtain abdominal ultrasound complete Will place a dietary consult for initiation of tube feeds for possibly this evening if patient is not extubated and upon results abdominal ultrasound D5 half-normal saline at 100 cc/hr Zofran for nausea Heme/ID: Lactic acidemia-resolved Leukocytosis F/U CBC Obtain blood culture x 2. Influenza nasal swab and strep pneumo antigen-negative F/U sputum culture ID following-Zosyn initiated, ampicillin and Rocephin discontinued BC count continues to down trend. Lactic acid normal Endocrine: Glucose monitoring per ICU protocol -- SSI Prophylaxis: GI Prophylaxis Famotidine twice daily DVT Prophylaxis -- SCDs, Heparin SQ BID Lines: Peripheral IVs x2. Central line if indicated Dispo: Level 3 follow up Code Status: Full Discussed Condition With: Discussed with SAMPLES AND REPAIRS PREPARER at bedside, and patient's significant other at bedside.
--- NOTE | 2018-08-22 08:32 | P.OBGPN ---
OB Note HD 3 Pt currently intubated but alert. Denies any OB issues. They are trying to extubate her this AM. Will cont BID heart tones. Call with any OB questions.
[2018-08-22 08:34] LABS: ABG Base Excess -7.4 mmol/L (-2-2); ABG PCO2 32 mmHg (38-42); ABG PO2 367 mmHG (61-120)
[2018-08-22] MEDS: Dexmedetomidine Inj 1,000 MCG in Sodium Chlor 0.9% Inj 240 ML IV.CONT PRN ×2 (08:34→22:00)
[2018-08-22] MEDS: Prenatal Vitamin Chewable Tablet CHEW SCH ×2 (08:35→11:43)
[2018-08-22] MEDS: Enoxaparin Inj 40 MG/0.4 ML Syringe SQ SCH (08:35)
[2018-08-22] MEDS: Propofol 1000 mg/100 ml Inj 1,000 MG/100 ML BOTTLE IV.CONT PRN ×5 (08:36→23:49)
[2018-08-22] MEDS: Famotidine PF Inj 20 MG/2 ML Vial IV.PUSH SCH ×2 (08:36→20:48)
[2018-08-22] MEDS: Chlorhexidine 0.12% Oral Kit 15 ML UDC OROPHARYNG SCH ×2 (08:36→20:48)
--- NOTE | 2018-08-22 09:26 | XR ---
EXAM DATE: 08/22/2018 9:21 AM EST AGE/SEX: 28 years / Female INDICATIONS: Respiratory disease, asthma exacerbation, evaluate for pneumonia. CLINICAL DATA: This is the patient's subsequent encounter. Patient reports that signs and symptoms h ave been present for 2 days and indicates a pain score of Nonresponsive. MEDICAL/SURGICAL HISTORY: Asthma. None. [place] [facility] [place]. . FINDINGS: Motion limited examination. Lungs are grossly clear. Cardiomegaly mediastinal contours are within nor mal limits. Bony thorax is intact. CONCLUSION: 1. Motion limited exam with grossly clear lungs. Electronically signed by: Moustapha Ferris MD Board Certified Radiologist 08/22/2018 9:24 AM EST
[2018-08-22] MEDS: MethylPREDNISolone Sod Succinate Inj 40 MG/ML Vial IV.PUSH SCH ×2 (11:42→23:49)
--- NOTE | 2018-08-22 11:43 | P.PNID ---
Subjective Remarks: Patient noted to have become agitated this am. Discussed with RN. Her heart rate increased. She had to be placed on increased sedation. She is currently sedated and in no distress. Respiratory viral culture has rhinovirus. Sputum culture has immature growth. Afebrile. Blood pressure is currently stable and heart rate is 84. Thick endotracheal tube secretions noted. 28-year-old white female who is 20 weeks . The patient has history of COPD. She was admitted to [facility] and subsequently transferred to [facility] for further management. She was intubated; currently on the ventilator. The patient had presented to [facility] 3 nights ago and she was given steroids and albuterol inhaler and discharged and after several hours she returned because she was having trouble breathing and this prompted further treatment and transferred to [facility]. //The patient's fiance is at bedside. He is aware of her health. states that she did not have any major problems in the days prior, but she has had to use her inhaler more frequently recently. She had no sputum production or coughing around the time that she had developed the difficulty breathing. She has had no fever. She was given solumedrol on 08/18/2018 and again on 08/19/2018 and received prednisone as well. Her white count was 15,000 on 08/19/2018 and the white count the right count ashlyn to 24.3 on 08/20/2018 and today it is 20.8. //Sputum culture pending. Nasal influenza test is negative. Chest x-ray was performed and showed no acute cardiopulmonary disease initially and then a subsequent chest x-ray on the same day, on 08/20/2018, after intubation shows subsegmental bibasilar airspace disease. The patient was also evaluated by [employer]. Currently, her heart rate is 76 and temperature is 98.3. Lactic acid on 08/20/2018 was 3.0 and it has decreased to 1.8. The renal function is normal. Information is obtained from the medical record. The patient is intubated and unable to verbally communicate at this time. Antibiotics: Piperacillin/tazobactam Lines: IV lines intact. Allergies/Adverse Reactions: Allergies aspirin Allergy (Verified 06/19/18 15:08) Swelling of Lip/Tongue/Throat ibuprofen Allergy (Verified 06/19/18 15:07) Swelling of Lip/Tongue/Throat NSAIDS (Non-Steroidal Anti-Inflamma Allergy (Verified 06/19/18 15:07) Shortness of Breath Objective Vital Signs 08/21/18 11:41 08/21/18 12:00 08/21/18 13:27 Temperature 97.7 F Pulse Rate 72 72 57 L Respiratory Rate 20 14 18 Blood Pressure 99/58 L Pulse Oximetry 99 100 08/21/18 14:00 08/21/18 14:30 08/21/18 15:41 Temperature Pulse Rate 63 73 Respiratory Rate 13 14 Blood Pressure Pulse Oximetry 100 08/21/18 16:00 08/21/18 18:00 08/21/18 18:34 Temperature 98.2 F Pulse Rate 66 58 L Respiratory Rate 14 15 Blood Pressure 103/60 Pulse Oximetry 97 100 08/21/18 19:46 08/21/18 20:00 08/21/18 22:00 Temperature 97.5 F L Pulse Rate 81 81 59 L Respiratory Rate 16 18 16 Blood Pressure 120/58 L Pulse Oximetry 100 100 08/22/18 00:00 08/22/18 00:07 08/22/18 00:17 Temperature 97.8 F Pulse Rate 68 67 Respiratory Rate 14 18 18 Blood Pressure 115/66 Pulse Oximetry 100 99 08/22/18 01:34 08/22/18 02:00 08/22/18 03:32 Temperature Pulse Rate 116 H 86 102 H Respiratory Rate 23 20 Blood Pressure Pulse Oximetry 08/22/18 04:00 08/22/18 04:22 08/22/18 05:36 Temperature 98.2 F Pulse Rate 154 H 102 H Respiratory Rate 22 17 18 Blood Pressure 137/65 Pulse Oximetry 100 99 08/22/18 06:00 08/22/18 08:14 Temperature Pulse Rate 81 162 H Respiratory Rate 18 Blood Pressure Pulse Oximetry 100 Intake & Output 08/21/18 08/22/18 08/22/18 18:59 06:59 18:59 Intake Total 1375 / 1375 2093 / 2093 46 / 46 Output Total 800 / 800 1600 / 1600 Balance 575 / 575 494 / 494 46 / 46 Weight 82.4 kg Intake: IV 1325 / 1325 2033 / 2033 46 / 46 Precedex Inj 1,000 MCG In NS 454 / 454 46 / 46 Inj 240 ML @ 0.2 MCG/KG/HR 3.92 mls/hr IV.CONT TITRATE PRN Rx# :[id number] Precedex Inj 200 MCG In NS Inj 35 / 35 48 ML @ 0.2 MCG/KG/HR 3.92 mls/ hr IV.CONT TITRATE PRN Rx#: [id number] D5W/1/2 NS Inj 1,000 ML @ 100 1000 / 1000 1480 / 1480 mls/hr IV.CONT .Q10H YASMEEN Rx#: [id number] Diprivan 1000 mg/100 ml Inj 1, 15 / 15 000 mg In 100 ml @ 5 MCG/KG/MIN 2.355 mls/hr IV.CONT TITRATE PRN Rx#:[id number] Ampicillin Inj 2,000 MG In NS 200 / 200 Inj 100 ML @ 400 mls/hr IV.SIG Q4H YASMEEN Rx#:[id number] Zosyn 3.375 GM Premix 3.375 gm 50 / 50 100 / 100 In 50 ml @ 100 mls/hr IV.SIG Q6H YASMEEN Rx#:[id number] fentaNYL 10 mcg/mL Premix Drip 25 / 25 2,500 mcg In 250 ml @ 50 MCG/HR 5 mls/hr IV.SIG TITRATE PRN Rx #:[id number] Tube Feeding 0 / 0 Water Bolus Amount 50 / 50 60 / 60 Output: Emesis 100 / 100 Urine Amount (Catheter) 700 / 700 1600 / 1600 Indwelling Urethral Catheter 700 / 700 1600 / 1600 Other: # Bowel Movements 0 0 08/20/18 13:20 Blood - Peripheral Aerobic Blood Culture - Preliminary No growth in 2 days 08/20/18 13:20 Blood - Peripheral Anaerobic Blood Culture - Preliminary No growth in 2 days 08/20/18 13:26 Blood - Peripheral Aerobic Blood Culture - Preliminary No growth in 2 days 08/20/18 13:26 Blood - Peripheral Anaerobic Blood Culture - Preliminary No growth in 2 days 08/20/18 15:34 Sputum - Endotracheal Gram Stain - Final 08/20/18 15:34 Sputum - Endotracheal Sputum Culture - Preliminary Immature growth - reincubate 08/20/18 15:00 Urine - Catheterized Urine Legionella Antigen - Final Presumptive negative for Legionella pneumophila serogroup 1 antigen in urine, suggesting no recent or recurrent infection. Infection due to Legionella cannot be ruled out since other serogroups and species may cause disease, antigen may not be present in urine in early infection, and the level of antigen present in the urine may be below the detection limit of the test. 08/20/18 15:00 Urine - Catheterized Urine Streptococcus pneumoniae Antigen ( M - Final Presumptive negative for streptococcus pneumoniae antigen, suggesting no current or recent infection. Infection due to Streptococcus pneumoniae cannot be ruled out since the antigen present in the sample may be below the detection limit of the test. 08/20/18 11:30 Nasal Wash Influenza Types A,B Antigen - Final Negative for FLU A and B antigen Infection due to influenza A or B cannot be ruled out since the antigen present in the sample may be below the detection limit of the test. Lab - Hematology Results 08/20/18 08/21/18 08/22/18 12:00 06:28 05:29 WBC 24.3 H 20.8 H 14.5 H RBC 3.62 L 2.88 L 3.12 L Hgb 12.2 10.0 L D 10.7 L Hct 36.1 29.1 L 31.0 L MCV 99.5 101.1 H 99.4 MCH 33.8 34.8 H 34.2 H MCHC 34.0 34.4 34.4 RDW 13.7 13.5 13.4 Plt Count 218 187 190 MPV 8.5 8.4 8.7 Prelim Diff (Auto) Slide review pending Neut % (Auto) 90.4 H 88.8 H Lymph % (Auto) 4.4 L 6.1 L [place] % (Auto) 4.9 5.1 Eos % (Auto) 0.1 0.0 Baso % (Auto) 0.2 0.0 Neut # (Auto) 18.8 H 12.9 H Lymph # (Auto) 0.9 L 0.9 L [place] # (Auto) 1.0 H 0.7 Eos # (Auto) 0.0 0.0 Baso # (Auto) 0.0 0.0 WBC Differential Manual diff final . Seg Neuts % (Manual) 76 H Band Neuts % (Manual) 16 H Lymphocytes % (Manual) 3 L Monocytes % (Manual) 4 Metamyelocytes % (Man) 1 Abs Neuts (Manual) 19.3 H Differential Comment . Auto diff final Platelet Estimate Normal Platelet Morphology Normal Lab - Chemistry Results 08/20/18 08/20/18 08/20/18 12:00 12:00 14:45 Sodium 139 Potassium 3.9 Chloride 113 H Carbon Dioxide 15.8 L Anion Gap 10 BUN 13 Creatinine 0.81 Estimated GFR 84 L POC Glucose Random Glucose 153 H Lactic Acid 3.0 H 3.0 H Calcium 7.9 L Calcium Adj for Albumin Phosphorus Magnesium Albumin 08/20/18 08/20/18 08/21/18 18:18 22:23 00:46 Sodium Potassium Chloride Carbon Dioxide Anion Gap BUN Creatinine Estimated GFR POC Glucose 140 H 114 H Random Glucose Lactic Acid 1.4 Calcium Calcium Adj for Albumin Phosphorus Magnesium Albumin 08/21/18 08/21/18 08/21/18 06:28 06:28 11:49 Sodium 141 Potassium 4.5 Chloride 116 H Carbon Dioxide 18.1 L Anion Gap 7 BUN 12 Creatinine 0.65 Estimated GFR Greater than 89 POC Glucose 127 H Random Glucose 122 H Lactic Acid 1.8 Calcium 6.9 L* D Calcium Adj for Albumin 8.3 L Phosphorus 2.3 L Magnesium 2.0 Albumin 2.3 L 08/21/18 08/21/18 08/22/18 17:34 23:18 05:29 Sodium 142 Potassium 4.1 Chloride 114 H Carbon Dioxide 19.2 L Anion Gap 9 BUN 9 Creatinine 0.68 Estimated GFR Greater than 89 POC Glucose 160 H 99 Random Glucose 120 H Lactic Acid Calcium 7.6 L Calcium Adj for Albumin Phosphorus 2.5 Magnesium 2.2 Albumin Imaging: ITS Impressions Abdomen Ultrasound 08/21/18 00:00 CONCLUSION: 1. Mild hepatomegaly, nonspecific. 2. Small right pleural effusion. Chest X-Ray 08/22/18 08:32 CONCLUSION: 1. Motion limited exam with grossly clear lungs. Physical Exam: PHYSICAL EXAMINATION: GENERAL: Patient is sedated on the ventilator. HEENT: Unable to fully assess since the patient is intubated. The head is atraumatic. No icterus. Oropharynx is intubated. NECK: No swelling. No adenopathy. LUNGS: Clear breath sounds. HEART: Regular S1 and S2, without murmurs, rubs or gallops. ABDOMEN: Diminished bowel sounds; distended, soft. No tenderness appreciated. EXTREMITIES: No clubbing, cyanosis or edema. SKIN: No rash. NEUROLOGIC: Unable to assess. PSYCHIATRIC: Unable to assess. Assessment and Plan - Plan IMPRESSION: 1. Asthma exacerbation. 2. Respiratory failure. 3. Leukocytosis. WBC decreasing. 4. Possible pneumonia. Urine culture pending. The rhinovirus recovered on culture is unlikely to be causing her degree of respiratory illness. At this point, it is unclear whether the leukocytosis is due to infection. She has been receiving steroids and it could be associated; however, she does have a left shift and therefore it is possible it could be due to infection. RECOMMENDATIONS: 1. Continue piperacillin/tazobactam. 2. Monitor sputum culture. 3. Follow the white blood cell count. 4. Monitor clinical status.
[2018-08-22] MEDS: Budesonide-Formoterol 160/4.5 MCG 6 GM Inhaler INH SCH ×2 (11:53→20:49)
--- NOTE | 2018-08-22 12:20 | US ---
EXAM DATE: 08/22/2018 12:11 PM EST AGE/SEX: 28 years / Female INDICATIONS: Bilateral leg swelling. CLINICAL DATA: This is the patient's initial encounter. Patient reports that signs and symptoms have been present for 1 day and indicates a pain score of Nonresponsive. MEDICAL/SURGICAL HISTORY: Asthma. Chronic obstructive pulmonary disease. Intubated/mechanicall y ventilated. 20 weeks gestation of . . Episiotomy. Prior history of intubation. COMPARISON: No prior exams available for comparison. TECHNIQUE: Venous ultrasound of both lower extremities was performed from the inguinal ligament to t he proximal calf. Real-time, color Doppler and spectral tracing, compression and augmentation techni ques were used. FINDINGS: Right Leg: Normal compression of the deep venous system from the inguinal region to the proximal katie f. No echogenic clot is seen. Normal response of the venous system to augmentation and respiration. Left Leg: Normal compression of the deep venous system from the inguinal region to the proximal calf . No echogenic clot is seen. Normal response of the venous system to augmentation and respiration. Other: None. CONCLUSION: Negative study. No venous thrombosis of the lower extremities. Electronically signed by: Manuel French MD Board Certified Radiologist 08/22/2018 12:19 PM EST
--- NOTE | 2018-08-22 12:23 | US ---
EXAM DATE: 08/22/2018 12:09 PM EST AGE/SEX: 28 years / Female INDICATIONS: Swelling in arms, left worse than right. CLINICAL DATA: This is the patient's initial encounter. Patient reports that signs and symptoms have been present for 3 days and indicates a pain score of 0/10. MEDICAL/SURGICAL HISTORY: Asthma. Chronic obstructive pulmonary disease. Intubated/mechanicall y ventilated. 20 weeks gestation of . . Episiotomy. Prior history of intubation. COMPARISON: No prior exams available for comparison. FINDINGS: Right Upper Extremity: The vessels are compressible and augmentation response is documented. No fill ing defects are seen. The flow is phasic with respiration. Left Upper Extremity: There is occlusive thrombus involving the mid and distal cephalic vein and thr oughout the basilic vein. There is soft tissue edema of the left upper extremity. Other: None. CONCLUSION: 1. Venous thrombosis of the left upper extremity as described. 2. No venous thrombosis of the right upper extremity. Electronically signed by: Manuel French MD Board Certified Radiologist 08/22/2018 12:22 PM EST
--- NOTE | 2018-08-22 16:57 | ECHRPT ---
Indication: SHORTNESS OF BREATH CONCLUSIONS Technically difficult study with very limited acoustic window visualization. There was limited left ventricular wall motion assessment due to poor endocardial visualization. Mild aortic valve regurgitation. BP: / HR: Rhythm: Sinus Technical Quality:Technically difficult study FINDINGS LEFT VENTRICLE There was limited left ventricular wall motion assessment due to poor endocardial visualization. RIGHT VENTRICLE The right ventricle was not well visualized. LEFT ATRIUM The left atrium was not well visualized. RIGHT ATRIUM The right atrium is not well visualized. ATRIAL SEPTUM The interatrial septum not well visualized. AORTA The aortic root and proximal ascending aorta are not well visualized. MITRAL VALVE The mitral valve is not well visualized. AORTIC VALVE The aortic valve is not well visualized. Mild aortic valve regurgitation. TRICUSPID VALVE The tricuspid valve is not well visualized. PULMONARY VALVE The pulmonary valve is not well visualized. VESSELS The inferior vena cava was not well visualized. Chad Torres (Electronically Signed) Final Date:22 August 2018 16:56
[2018-08-22] MEDS: fentaNYL 10 mcg/mL Premix Drip 2,500 MCG/250 ML BAG IV.SIG PRN (19:46)
--- NOTE | 2018-08-22 19:56 | P.PNPL ---
Subjective Interval history: 28 YOWF, , with Br asthma exac On Vent Sedated with Precedex and Propofol no fever Became agitated ,on CPAP trial Put back on vent Physical Exam Vital signs: Vital Signs 08/21/18 20:00 08/21/18 22:00 08/22/18 00:00 Temperature 97.5 F L 97.8 F Pulse Rate 81 59 L 68 Respiratory Rate 18 16 14 Blood Pressure 120/58 L 115/66 Pulse Oximetry 100 100 08/22/18 00:07 08/22/18 00:17 08/22/18 01:34 Temperature Pulse Rate 67 116 H Respiratory Rate 18 18 23 Blood Pressure Pulse Oximetry 99 08/22/18 02:00 08/22/18 03:32 08/22/18 04:00 Temperature 98.2 F Pulse Rate 86 102 H 154 H Respiratory Rate 20 22 Blood Pressure 137/65 Pulse Oximetry 100 08/22/18 04:22 08/22/18 05:36 08/22/18 06:00 Temperature Pulse Rate 102 H 81 Respiratory Rate 17 18 Blood Pressure Pulse Oximetry 99 08/22/18 08:00 08/22/18 08:14 08/22/18 08:46 Temperature Pulse Rate 92 H 162 H 153 H Respiratory Rate 18 29 H Blood Pressure Pulse Oximetry 100 89 L 08/22/18 09:00 08/22/18 09:03 08/22/18 09:15 Temperature Pulse Rate 113 H 112 H 107 H Respiratory Rate 25 H 19 15 Blood Pressure 100/49 L 87/52 L Pulse Oximetry 97 100 100 08/22/18 09:30 08/22/18 09:45 08/22/18 10:00 Temperature Pulse Rate 101 H 93 H 84 Respiratory Rate 13 18 12 Blood Pressure 100/56 L 109/57 L 110/56 L Pulse Oximetry 100 100 100 08/22/18 10:15 08/22/18 10:30 08/22/18 10:45 Temperature Pulse Rate 82 79 81 Respiratory Rate 13 11 L 11 L Blood Pressure 109/55 L 112/59 L 103/57 L Pulse Oximetry 100 100 100 08/22/18 11:00 08/22/18 11:15 08/22/18 11:28 Temperature Pulse Rate 83 82 84 Respiratory Rate 11 L 11 L 15 Blood Pressure 103/57 L 103/56 L Pulse Oximetry 100 100 100 08/22/18 11:36 08/22/18 11:45 08/22/18 12:00 Temperature 97.7 F Pulse Rate 84 82 85 Respiratory Rate 11 L 11 L 11 L Blood Pressure 104/53 L 102/56 L 104/56 L Pulse Oximetry 98 98 97 08/22/18 12:15 08/22/18 12:30 08/22/18 12:45 Temperature Pulse Rate 79 78 69 Respiratory Rate 11 L 11 L 10 L Blood Pressure 98/54 L 103/55 L 108/59 L Pulse Oximetry 97 97 98 08/22/18 13:00 08/22/18 13:15 08/22/18 13:30 Temperature Pulse Rate 66 68 69 Respiratory Rate 11 L 11 L 11 L Blood Pressure 107/56 L 107/57 L 108/57 L Pulse Oximetry 96 97 96 08/22/18 13:45 08/22/18 14:00 08/22/18 14:15 Temperature Pulse Rate 65 69 69 Respiratory Rate 12 11 L 11 L Blood Pressure 109/60 106/58 L 108/56 L Pulse Oximetry 97 96 96 08/22/18 14:30 08/22/18 14:45 08/22/18 15:00 Temperature Pulse Rate 67 67 68 Respiratory Rate 11 L 12 11 L Blood Pressure 107/58 L 107/56 L 106/58 L Pulse Oximetry 96 96 96 08/22/18 15:15 08/22/18 15:30 08/22/18 15:39 Temperature Pulse Rate 71 69 70 Respiratory Rate 11 L 11 L 14 Blood Pressure 104/55 L 108/58 L Pulse Oximetry 96 98 96 08/22/18 15:45 08/22/18 16:00 08/22/18 16:15 Temperature 97.6 F Pulse Rate 71 73 74 Respiratory Rate 11 L 12 11 L Blood Pressure 106/58 L 103/57 L 96/51 L Pulse Oximetry 96 96 99 08/22/18 16:30 08/22/18 16:45 08/22/18 17:00 Temperature Pulse Rate 69 67 70 Respiratory Rate 12 10 L 11 L Blood Pressure 102/59 L 106/55 L 105/58 L Pulse Oximetry 97 96 99 08/22/18 17:15 08/22/18 17:30 08/22/18 17:45 Temperature Pulse Rate 66 64 66 Respiratory Rate 12 12 11 L Blood Pressure 96/56 L 100/59 L 96/56 L Pulse Oximetry 100 100 100 08/22/18 18:00 08/22/18 18:15 08/22/18 18:30 Temperature Pulse Rate 65 62 56 L Respiratory Rate 11 L 12 12 Blood Pressure 100/56 L 101/55 L 102/58 L Pulse Oximetry 100 100 100 08/22/18 18:45 08/22/18 19:00 08/22/18 19:15 Temperature Pulse Rate 61 63 66 Respiratory Rate 12 13 11 L Blood Pressure 102/58 L 95/52 L 90/54 L Pulse Oximetry 100 100 100 Intake & Output 08/22/18 08/22/18 08/23/18 06:59 18:59 06:59 Intake Total 4 / 4 1484 / 1484 100 / 100 Output Total 1600 / 1600 1800 / 1800 Balance 494 / 494 -316 / -316 100 / 100 Weight 82.4 kg Intake: IV 2034 / 2034 1346 / 1346 100 / 100 Precedex Inj 1,000 MCG In NS 454 / 454 46 / 46 Inj 240 ML @ 0.2 MCG/KG/HR 3.92 mls/hr IV.CONT TITRATE PRN Rx# :[id number] D5W/1/2 NS Inj 1,000 ML @ 100 1480 / 1480 1000 / 1000 mls/hr IV.CONT .Q10H YASMEEN Rx#: [id number] Diprivan 1000 mg/100 ml Inj 1, 200 / 200 100 / 100 000 mg In 100 ml @ 5 MCG/KG/MIN 2.355 mls/hr IV.CONT TITRATE PRN Rx#:[id number] Zosyn 3.375 GM Premix 3.375 gm 100 / 100 100 / 100 In 50 ml @ 100 mls/hr IV.SIG Q6H YASMEEN Rx#:[id number] Tube Feeding 78 / 78 Water Bolus Amount 60 / 60 60 / 60 Output: Urine Amount (Catheter) 1600 / 1600 1800 / 1800 Indwelling Urethral Catheter 1600 / 1600 1800 / 1800 Other: # Bowel Movements 0 GENERAL: WBWn On Vent SKIN: Warm and dry. HEAD: Normocephalic. EYES: No scleral icterus. No injection or drainage. NECK: Supple, trachea midline. No JVD or lymphadenopathy. CARDIOVASCULAR: Regular rate and rhythm without murmurs, gallops, or rubs. RESPIRATORY: Breath sounds equal bilaterally. No accessory muscle use. GASTROINTESTINAL: Abdomen soft, non-tender, nondistended. MUSCULOSKELETAL: No cyanosis, or edema. BACK: Nontender without obvious deformity. No CVA tenderness. - Urinary Catheter Management Indwelling Urethral Catheter Cath placed during this visit: yes Reason for continuing: Other continuation reason Insertion date: 08/20/18 Insertion time: 14:45 Assessment and Plan - Plan IMPRESSION: VDRF Br asthma exac Bronchitis PLAN: Vent Support Sedation with Precedex and Propofol. Cont Abx per ID Cont Steroids CPAP trial in AM DW
[2018-08-23] MEDS: Piperacil/Tazo 3.375 GM Premix 3.375 GM/50 ML PIGGYBACK IV.SIG SCH ×4 (02:23→21:01)
[2018-08-23] MEDS: Chlorhexidine Gluconate 2% 1 Pack (2 Cloths) TOPICAL SCH ×2 (03:34→04:00)
[2018-08-23] MEDS: Oral Hygiene Kit OROPHARYNG SCH ×3 (04:00→15:19)
[2018-08-23] MEDS: Insulin NovoLOG Aspart Correctional Sugar Inj SQ SCH ×3 (05:25→17:28)
[2018-08-23] MEDS: Propofol 1000 mg/100 ml Inj 1,000 MG/100 ML BOTTLE IV.CONT PRN (06:00)
[2018-08-23] MEDS: Chlorhexidine 0.12% Oral Kit 15 ML UDC OROPHARYNG SCH ×2 (07:09→20:00)
[2018-08-23 07:45] LABS: Baso % (Auto) 0.1 % (0.0-2.0); Eos % (Auto) 0.1 % (0.0-4.0); Hematocrit 28.2 % (35.0-46.0); Lymph # (Auto) 0.9 th/mm3 (1.0-4.8); Lymph % (Auto) 11.3 % (9.0-44.0); Mean Corpuscular HGB Conc 35.4 % (32.0-36.0); Mean Corpuscular Hemoglobin 35.2 pg (27.0-34.0); Mean Corpuscular Volume 99.5 fL (80.0-100.0); Mean Platelet Volume 8.4 fL (7.0-11.0); Mono # (Auto) 0.6 th/mm3 (0.0-0.9); Mono % (Auto) 6.8 % (0.0-8.0); Neut # (Auto) 6.7 th/mm3 (1.8-7.7); Neut % (Auto) 81.7 % (16.0-70.0); Platelet Count 166 th/mm3 (150-450); Red Blood Count 2.83 mil/mm3 (4.00-5.30); Red Cell Distribution Width 13.7 % (11.6-17.2); White Blood Count 8.2 th/mm3 (4.0-11.0)
[2018-08-23 08:07] LABS: Anion Gap 8 meq/L (5-15); Blood Urea Nitrogen 8 mg/dL (7-18); Calcium 7.7 mg/dL (8.5-10.1); Carbon Dioxide 23.4 meq/L (21.0-32.0); Chloride 111 meq/L (98-107); Glomerular Filtration Rate Greater Than 89 mL/min (>89); Glucose,Random 119 mg/dL (74-106); Magnesium 2.3 mg/dL (1.5-2.5); Potassium 4.5 meq/L (3.5-5.1); Sodium 142 meq/L (136-145)
[2018-08-23] MEDS: Dextrose 5%/NaCl 0.45% Inj 1,000 ML IV.CONT SCH ×2 (08:14→17:44)
[2018-08-23] MEDS: fentaNYL 10 mcg/mL Premix Drip 2,500 MCG/250 ML BAG IV.SIG PRN (08:18)
[2018-08-23] MEDS: Enoxaparin Inj 40 MG/0.4 ML Syringe SQ SCH (08:26)
[2018-08-23] MEDS: Budesonide-Formoterol 160/4.5 MCG 6 GM Inhaler INH SCH ×2 (08:26→21:02)
[2018-08-23] MEDS: Prenatal Vitamin Chewable Tablet CHEW SCH (08:26)
[2018-08-23] MEDS: Famotidine PF Inj 20 MG/2 ML Vial IV.PUSH SCH ×2 (08:26→21:02)
--- NOTE | 2018-08-23 09:13 | P.OBANTE ---
Subjective Interval History: Pt currently intubated and sedated. CPAP trials this AM. Call with any OB questions. Objective Vital Signs and I&O: Vital Signs 08/22/18 09:15 08/22/18 09:30 08/22/18 09:45 Temperature Pulse Rate 107 H 101 H 93 H Respiratory Rate 15 13 18 Blood Pressure 87/52 L 100/56 L 109/57 L Pulse Oximetry 100 100 100 08/22/18 10:00 08/22/18 10:15 08/22/18 10:30 Temperature Pulse Rate 84 82 79 Respiratory Rate 12 13 11 L Blood Pressure 110/56 L 109/55 L 112/59 L Pulse Oximetry 100 100 100 08/22/18 10:45 08/22/18 11:00 08/22/18 11:15 Temperature Pulse Rate 81 83 82 Respiratory Rate 11 L 11 L 11 L Blood Pressure 103/57 L 103/57 L 103/56 L Pulse Oximetry 100 100 100 08/22/18 11:28 08/22/18 11:36 08/22/18 11:45 Temperature Pulse Rate 84 84 82 Respiratory Rate 15 11 L 11 L Blood Pressure 104/53 L 102/56 L Pulse Oximetry 100 98 98 08/22/18 12:00 08/22/18 12:15 08/22/18 12:30 Temperature 97.7 F Pulse Rate 85 79 78 Respiratory Rate 11 L 11 L 11 L Blood Pressure 104/56 L 98/54 L 103/55 L Pulse Oximetry 97 97 97 08/22/18 12:45 08/22/18 13:00 08/22/18 13:15 Temperature Pulse Rate 69 66 68 Respiratory Rate 10 L 11 L 11 L Blood Pressure 108/59 L 107/56 L 107/57 L Pulse Oximetry 98 96 97 08/22/18 13:30 08/22/18 13:45 08/22/18 14:00 Temperature Pulse Rate 69 65 69 Respiratory Rate 11 L 12 11 L Blood Pressure 108/57 L 109/60 106/58 L Pulse Oximetry 96 97 96 08/22/18 14:15 08/22/18 14:30 08/22/18 14:45 Temperature Pulse Rate 69 67 67 Respiratory Rate 11 L 11 L 12 Blood Pressure 108/56 L 107/58 L 107/56 L Pulse Oximetry 96 96 96 08/22/18 15:00 08/22/18 15:15 08/22/18 15:30 Temperature Pulse Rate 68 71 69 Respiratory Rate 11 L 11 L 11 L Blood Pressure 106/58 L 104/55 L 108/58 L Pulse Oximetry 96 96 98 08/22/18 15:39 08/22/18 15:45 08/22/18 16:00 Temperature 97.6 F Pulse Rate 70 71 73 Respiratory Rate 14 11 L 12 Blood Pressure 106/58 L 103/57 L Pulse Oximetry 96 96 96 08/22/18 16:15 08/22/18 16:30 08/22/18 16:45 Temperature Pulse Rate 74 69 67 Respiratory Rate 11 L 12 10 L Blood Pressure 96/51 L 102/59 L 106/55 L Pulse Oximetry 99 97 96 08/22/18 17:00 08/22/18 17:15 08/22/18 17:30 Temperature Pulse Rate 70 66 64 Respiratory Rate 11 L 12 12 Blood Pressure 105/58 L 96/56 L 100/59 L Pulse Oximetry 99 100 100 08/22/18 17:45 08/22/18 18:00 08/22/18 18:15 Temperature Pulse Rate 66 65 62 Respiratory Rate 11 L 11 L 12 Blood Pressure 96/56 L 100/56 L 101/55 L Pulse Oximetry 100 100 100 08/22/18 18:30 08/22/18 18:45 08/22/18 19:00 Temperature Pulse Rate 56 L 61 66 Respiratory Rate 12 12 12 Blood Pressure 102/58 L 102/58 L 95/52 L Pulse Oximetry 100 100 100 08/22/18 19:15 08/22/18 19:30 08/22/18 19:45 Temperature Pulse Rate 66 66 66 Respiratory Rate 11 L 12 11 L Blood Pressure 90/54 L 90/55 L 90/54 L Pulse Oximetry 100 100 100 08/22/18 20:00 08/22/18 20:15 08/22/18 20:30 Temperature 97.5 F L Pulse Rate 66 65 66 Respiratory Rate 12 12 12 Blood Pressure 89/51 L 88/52 L 87/52 L Pulse Oximetry 100 100 100 08/22/18 20:45 08/22/18 21:00 08/22/18 21:15 Temperature Pulse Rate 66 66 63 Respiratory Rate 12 11 L 12 Blood Pressure 89/53 L 91/55 L 94/55 L Pulse Oximetry 100 100 100 08/22/18 21:30 08/22/18 21:45 08/22/18 22:00 Temperature Pulse Rate 64 59 L 57 L Respiratory Rate 12 12 12 Blood Pressure 92/53 L 90/52 L 92/50 L Pulse Oximetry 100 100 100 08/22/18 22:15 08/22/18 22:30 08/22/18 22:45 Temperature Pulse Rate 57 L 59 L 60 Respiratory Rate 12 12 12 Blood Pressure 92/53 L 93/53 L 91/50 L Pulse Oximetry 100 100 100 08/22/18 23:00 08/22/18 23:15 08/22/18 23:30 Temperature Pulse Rate 61 61 59 L Respiratory Rate 12 12 12 Blood Pressure 90/50 L 88/54 L 91/54 L Pulse Oximetry 100 100 100 08/22/18 23:37 08/22/18 23:39 08/22/18 23:45 Temperature Pulse Rate 59 L 59 L Respiratory Rate 13 13 12 Blood Pressure 86/51 L Pulse Oximetry 100 100 08/23/18 00:00 08/23/18 00:15 08/23/18 00:30 Temperature 96.0 F L Pulse Rate 58 L 55 L 54 L Respiratory Rate 12 12 11 L Blood Pressure 93/51 L 96/53 L 97/60 L Pulse Oximetry 100 100 100 08/23/18 00:45 08/23/18 01:00 08/23/18 01:15 Temperature Pulse Rate 53 L 54 L 53 L Respiratory Rate 12 12 12 Blood Pressure 94/54 L 96/55 L 97/55 L Pulse Oximetry 100 100 100 08/23/18 01:30 08/23/18 01:45 08/23/18 02:00 Temperature Pulse Rate 57 L 56 L 56 L Respiratory Rate 12 12 12 Blood Pressure 94/54 L 93/50 L 93/52 L Pulse Oximetry 100 100 100 08/23/18 02:15 08/23/18 02:30 08/23/18 02:45 Temperature Pulse Rate 59 L 57 L 54 L Respiratory Rate 12 14 13 Blood Pressure 94/52 L 97/53 L 98/54 L Pulse Oximetry 100 100 100 08/23/18 03:00 08/23/18 03:15 08/23/18 03:30 Temperature Pulse Rate 56 L 56 L 56 L Respiratory Rate 15 13 15 Blood Pressure 94/52 L 98/53 L 99/58 L Pulse Oximetry 100 100 100 08/23/18 03:35 08/23/18 03:36 08/23/18 03:45 Temperature Pulse Rate 53 L 56 L Respiratory Rate 14 14 12 Blood Pressure 99/55 L Pulse Oximetry 100 100 08/23/18 04:00 08/23/18 06:00 08/23/18 08:00 Temperature 97.5 F L 98.9 F Pulse Rate 59 L 59 L 67 Respiratory Rate 13 30 H Blood Pressure 100/56 L 117/58 L Pulse Oximetry 100 94 L Intake & Output 08/22/18 08/23/18 08/23/18 18:59 06:59 18:59 Intake Total 1484 / 1484 1756 / 1756 1300 / 1300 Output Total 1800 / 1800 1250 / 1250 Balance -316 / -316 506 / 506 1300 / 1300 Weight 85.5 kg Intake: IV 1346 / 1346 1650 / 1650 1300 / 1300 Precedex Inj 1,000 MCG In NS 46 / 46 250 / 250 Inj 240 ML @ 0.2 MCG/KG/HR 3.92 mls/hr IV.CONT TITRATE PRN Rx# :[id number] D5W/1/2 NS Inj 1,000 ML @ 100 1000 / 1000 1000 / 1000 1000 / 1000 mls/hr IV.CONT .Q10H YASMEEN Rx#: [id number] Diprivan 1000 mg/100 ml Inj 1, 200 / 200 300 / 300 000 mg In 100 ml @ 5 MCG/KG/MIN 2.355 mls/hr IV.CONT TITRATE PRN Rx#:[id number] Zosyn 3.375 GM Premix 3.375 gm 100 / 100 100 / 100 50 / 50 In 50 ml @ 100 mls/hr IV.SIG Q6H YASMEEN Rx#:[id number] fentaNYL 10 mcg/mL Premix Drip 250 / 250 2,500 mcg In 250 ml @ 50 MCG/HR 5 mls/hr IV.SIG TITRATE PRN Rx #:[id number] Tube Feeding 78 / 78 106 / 106 Water Bolus Amount 60 / 60 Output: Urine Amount (Catheter) 1800 / 1800 1250 / 1250 Indwelling Urethral Catheter 1800 / 1800 1250 / 1250 Lab and Micro Results:
--- NOTE | 2018-08-23 10:16 | P.PNCC ---
Subjective Subjective Remarks/Hospital Course: 08/21: Last evening the patient's ABG worsen patient's respiratory status deteriorated the patient required intubation and mechanical ventilation .labs obtained the patient was noted to have a leukocytosis cultures were obtained empiric antibiotics were initiated to include ampicillin and Rocephin both discussed with [employer] Dr. Gonsalez. ID was also consulted. this a.m. the patient's oxygen requirements decreased overnight. Patient transition to Precedex in anticipation for possible extubation today. The patient was on low-dose Precedex 0.3 mcgs/kg/hr. This a.m. the patient complained chest tightness, butyryl neb nebulizer was provided. Patient has OGT in situ the patient began vomiting, NG tube placed on suctioned, subsequently dislodged from vomiting, and removed. Patient became extremely agitated. Precedex infusion increased. Discussed case with Dr. Gonsalez at bedside plan for Vistaril 50 mg IM every 6 hours as recommended. Patient complaining of persistent nausea, Zofran continued at every 6 hours as needed. 08/22: No acute events overnight. The patient remains on Precedex infusion at 1 tita per kilo per hour peer the patient continues to give Vistaril 50 mg every 6 IM secondary to extreme agitation/anxiety . FiO2 requirements have been significantly decreased to 30%. Patient continues successfully on CPAP trials , plan for SBT parameters and possible extubation this a.m. The patient remains n.p.o. , dietary consult has been recommending Jevity 1.5 we will hold at this time for in anticipation of possible extubation. Ultrasound bilateral lower extremities are pending peer abdominal ultrasound yesterday was performed which showed no common bile duct dilatation concern for continued metabolic acidosis. SUBJECTIVE: 08/23: Patient extremely anxious exam. Will try spontaneous breathing trials attempt extubation today. Tube feeds are off. Noted to have left upper extremity severe venous thrombosis involving the cephalic and basilic veins. Echocardiogram not well visualized. Objective Vital Signs / I&O: Vital Signs 08/22/18 10:15 08/22/18 10:30 08/22/18 10:45 Temperature Pulse Rate 82 79 81 Respiratory Rate 13 11 L 11 L Blood Pressure 109/55 L 112/59 L 103/57 L Pulse Oximetry 100 100 100 08/22/18 11:00 08/22/18 11:15 08/22/18 11:28 Temperature Pulse Rate 83 82 84 Respiratory Rate 11 L 11 L 15 Blood Pressure 103/57 L 103/56 L Pulse Oximetry 100 100 100 08/22/18 11:36 08/22/18 11:45 08/22/18 12:00 Temperature 97.7 F Pulse Rate 84 82 85 Respiratory Rate 11 L 11 L 11 L Blood Pressure 104/53 L 102/56 L 104/56 L Pulse Oximetry 98 98 97 08/22/18 12:15 08/22/18 12:30 08/22/18 12:45 Temperature Pulse Rate 79 78 69 Respiratory Rate 11 L 11 L 10 L Blood Pressure 98/54 L 103/55 L 108/59 L Pulse Oximetry 97 97 98 08/22/18 13:00 08/22/18 13:15 08/22/18 13:30 Temperature Pulse Rate 66 68 69 Respiratory Rate 11 L 11 L 11 L Blood Pressure 107/56 L 107/57 L 108/57 L Pulse Oximetry 96 97 96 08/22/18 13:45 08/22/18 14:00 08/22/18 14:15 Temperature Pulse Rate 65 69 69 Respiratory Rate 12 11 L 11 L Blood Pressure 109/60 106/58 L 108/56 L Pulse Oximetry 97 96 96 08/22/18 14:30 08/22/18 14:45 08/22/18 15:00 Temperature Pulse Rate 67 67 68 Respiratory Rate 11 L 12 11 L Blood Pressure 107/58 L 107/56 L 106/58 L Pulse Oximetry 96 96 96 08/22/18 15:15 08/22/18 15:30 08/22/18 15:39 Temperature Pulse Rate 71 69 70 Respiratory Rate 11 L 11 L 14 Blood Pressure 104/55 L 108/58 L Pulse Oximetry 96 98 96 08/22/18 15:45 08/22/18 16:00 08/22/18 16:15 Temperature 97.6 F Pulse Rate 71 73 74 Respiratory Rate 11 L 12 11 L Blood Pressure 106/58 L 103/57 L 96/51 L Pulse Oximetry 96 96 99 08/22/18 16:30 08/22/18 16:45 08/22/18 17:00 Temperature Pulse Rate 69 67 70 Respiratory Rate 12 10 L 11 L Blood Pressure 102/59 L 106/55 L 105/58 L Pulse Oximetry 97 96 99 08/22/18 17:15 08/22/18 17:30 08/22/18 17:45 Temperature Pulse Rate 66 64 66 Respiratory Rate 12 12 11 L Blood Pressure 96/56 L 100/59 L 96/56 L Pulse Oximetry 100 100 100 08/22/18 18:00 08/22/18 18:15 08/22/18 18:30 Temperature Pulse Rate 65 62 56 L Respiratory Rate 11 L 12 12 Blood Pressure 100/56 L 101/55 L 102/58 L Pulse Oximetry 100 100 100 08/22/18 18:45 08/22/18 19:00 08/22/18 19:15 Temperature Pulse Rate 61 66 66 Respiratory Rate 12 12 11 L Blood Pressure 102/58 L 95/52 L 90/54 L Pulse Oximetry 100 100 100 08/22/18 19:30 08/22/18 19:45 08/22/18 20:00 Temperature 97.5 F L Pulse Rate 66 66 66 Respiratory Rate 12 11 L 12 Blood Pressure 90/55 L 90/54 L 89/51 L Pulse Oximetry 100 100 100 08/22/18 20:15 08/22/18 20:30 08/22/18 20:45 Temperature Pulse Rate 65 66 66 Respiratory Rate 12 12 12 Blood Pressure 88/52 L 87/52 L 89/53 L Pulse Oximetry 100 100 100 08/22/18 21:00 08/22/18 21:15 08/22/18 21:30 Temperature Pulse Rate 66 63 64 Respiratory Rate 11 L 12 12 Blood Pressure 91/55 L 94/55 L 92/53 L Pulse Oximetry 100 100 100 08/22/18 21:45 08/22/18 22:00 08/22/18 22:15 Temperature Pulse Rate 59 L 57 L 57 L Respiratory Rate 12 12 12 Blood Pressure 90/52 L 92/50 L 92/53 L Pulse Oximetry 100 100 100 08/22/18 22:30 08/22/18 22:45 08/22/18 23:00 Temperature Pulse Rate 59 L 60 61 Respiratory Rate 12 12 12 Blood Pressure 93/53 L 91/50 L 90/50 L Pulse Oximetry 100 100 100 08/22/18 23:15 08/22/18 23:30 08/22/18 23:37 Temperature Pulse Rate 61 59 L Respiratory Rate 12 12 13 Blood Pressure 88/54 L 91/54 L Pulse Oximetry 100 100 100 08/22/18 23:39 08/22/18 23:45 08/23/18 00:00 Temperature 96.0 F L Pulse Rate 59 L 59 L 58 L Respiratory Rate 13 12 12 Blood Pressure 86/51 L 93/51 L Pulse Oximetry 100 100 08/23/18 00:15 08/23/18 00:30 08/23/18 00:45 Temperature Pulse Rate 55 L 54 L 53 L Respiratory Rate 12 11 L 12 Blood Pressure 96/53 L 97/60 L 94/54 L Pulse Oximetry 100 100 100 08/23/18 01:00 08/23/18 01:15 08/23/18 01:30 Temperature Pulse Rate 54 L 53 L 57 L Respiratory Rate 12 12 12 Blood Pressure 96/55 L 97/55 L 94/54 L Pulse Oximetry 100 100 100 08/23/18 01:45 08/23/18 02:00 08/23/18 02:15 Temperature Pulse Rate 56 L 56 L 59 L Respiratory Rate 12 12 12 Blood Pressure 93/50 L 93/52 L 94/52 L Pulse Oximetry 100 100 100 08/23/18 02:30 08/23/18 02:45 08/23/18 03:00 Temperature Pulse Rate 57 L 54 L 56 L Respiratory Rate 14 13 15 Blood Pressure 97/53 L 98/54 L 94/52 L Pulse Oximetry 100 100 100 08/23/18 03:15 08/23/18 03:30 08/23/18 03:35 Temperature Pulse Rate 56 L 56 L Respiratory Rate 13 15 14 Blood Pressure 98/53 L 99/58 L Pulse Oximetry 100 100 100 08/23/18 03:36 08/23/18 03:45 08/23/18 04:00 Temperature 97.5 F L Pulse Rate 53 L 56 L 59 L Respiratory Rate 14 12 13 Blood Pressure 99/55 L 100/56 L Pulse Oximetry 100 100 08/23/18 06:00 08/23/18 08:00 08/23/18 09:00 Temperature 98.9 F Pulse Rate 59 L 67 93 H Respiratory Rate 30 H 18 Blood Pressure 117/58 L Pulse Oximetry 94 L 08/23/18 09:26 Temperature Pulse Rate Respiratory Rate 18 Blood Pressure Pulse Oximetry 97 Intake & Output 08/22/18 08/23/18 08/23/18 18:59 06:59 18:59 Intake Total 1484 / 1484 1756 / 1756 1300 / 1300 Output Total 1800 / 1800 1250 / 1250 Balance -316 / -316 506 / 506 1300 / 1300 Weight 85.5 kg Intake: IV 1346 / 1346 1650 / 1650 1300 / 1300 Precedex Inj 1,000 MCG In NS 46 / 46 250 / 250 Inj 240 ML @ 0.2 MCG/KG/HR 3.92 mls/hr IV.CONT TITRATE PRN Rx# :[id number] D5W/1/2 NS Inj 1,000 ML @ 100 1000 / 1000 1000 / 1000 1000 / 1000 mls/hr IV.CONT .Q10H YASMEEN Rx#: [id number] Diprivan 1000 mg/100 ml Inj 1, 200 / 200 300 / 300 000 mg In 100 ml @ 5 MCG/KG/MIN 2.355 mls/hr IV.CONT TITRATE PRN Rx#:[id number] Zosyn 3.375 GM Premix 3.375 gm 100 / 100 100 / 100 50 / 50 In 50 ml @ 100 mls/hr IV.SIG Q6H YASMEEN Rx#:[id number] fentaNYL 10 mcg/mL Premix Drip 250 / 250 2,500 mcg In 250 ml @ 50 MCG/HR 5 mls/hr IV.SIG TITRATE PRN Rx #:[id number] Tube Feeding 78 / 78 106 / 106 Water Bolus Amount 60 / 60 Output: Urine Amount (Catheter) 1800 / 1800 1250 / 1250 Indwelling Urethral Catheter 1800 / 1800 1250 / 1250 Result Diagrams: 08/23/18 06:07 08/23/18 06:07 Other Results: Microbiology 08/20/18 15:34 Sputum - Endotracheal Gram Stain - Final 08/20/18 15:34 Sputum - Endotracheal Sputum Culture - Final Heavy growth normal respiratory snow 08/20/18 13:20 Blood - Peripheral Aerobic Blood Culture - Preliminary No growth in 2 days 08/20/18 13:20 Blood - Peripheral Anaerobic Blood Culture - Preliminary No growth in 2 days 08/20/18 13:26 Blood - Peripheral Aerobic Blood Culture - Preliminary No growth in 2 days 08/20/18 13:26 Blood - Peripheral Anaerobic Blood Culture - Preliminary No growth in 2 days 08/20/18 15:00 Urine - Catheterized Urine Legionella Antigen - Final Presumptive negative for Legionella pneumophila serogroup 1 antigen in urine, suggesting no recent or recurrent infection. Infection due to Legionella cannot be ruled out since other serogroups and species may cause disease, antigen may not be present in urine in early infection, and the level of antigen present in the urine may be below the detection limit of the test. 08/20/18 15:00 Urine - Catheterized Urine Streptococcus pneumoniae Antigen ( M - Final Presumptive negative for streptococcus pneumoniae antigen, suggesting no current or recent infection. Infection due to Streptococcus pneumoniae cannot be ruled out since the antigen present in the sample may be below the detection limit of the test. 08/20/18 11:30 Nasal Wash Influenza Types A,B Antigen - Final Negative for FLU A and B antigen Infection due to influenza A or B cannot be ruled out since the antigen present in the sample may be below the detection limit of the test. Imaging: Chest X-Ray 08/20/18 09:53 CONCLUSION: No acute cardiopulmonary disease Chest X-Ray 08/20/18 14:24 CONCLUSION: Endotracheal tube and nasogastric tube in good position. Subsegmental basilar airspace disease. Abdomen Ultrasound 08/21/18 00:00 CONCLUSION: 1. Mild hepatomegaly, nonspecific. 2. Small right pleural effusion. Venous Doppler Study 08/22/18 00:00 CONCLUSION: 1. Venous thrombosis of the left upper extremity as described. 2. No venous thrombosis of the right upper extremity. Venous Doppler Study 08/22/18 00:00 CONCLUSION: Negative study. No venous thrombosis of the lower extremities. Chest X-Ray 08/22/18 08:32 CONCLUSION: 1. Motion limited exam with grossly clear lungs. Objective Remarks: GENERAL: This is a well developed well nourished female in no acute distress . Communicating by typing on her cellular telephone SKIN: Warm and dry. HEAD: Atraumatic. Normocephalic. EYES: Pupils equal and round. EOMI. No scleral icterus. No injection or drainage. ENT: No nasal bleeding or discharge. Mucous membranes pink and moist. NECK: Trachea midline. No JVD. CARDIOVASCULAR: Normal rate, regular rhythm. S1, S2. No S4. RESPIRATORY: No accessory muscle use. Clear anteriorly. Positive scattered inspiratory wheezing involving the bilateral lower lobes. No retractions. GASTROINTESTINAL: Abdomen soft, non-tender, nondistended. No guarding. Patch that MUSCULOSKELETAL: Extremities without clubbing, cyanosis, or edema. No obvious deformities. NEUROLOGICAL: Awake and alert. RASS 0 Procedures: 08/20: Intubation Assessment and Plan - Problem List (1) Asthma exacerbation Code(s): J45.901 - Unspecified asthma with (acute) exacerbation Status: Acute (2) Asthma with acute exacerbation in adult Code(s): J45.901 - Unspecified asthma with (acute) exacerbation Status: Acute (3) 20 weeks gestation of Code(s): Z3A.20 - 20 weeks gestation of Status: Acute - Assessment and Plan Plan: Neurologic/psych: Anxiety disorder otherwise specified Patient initially placed on propofol at 30 mcg/kg/min, dexmedetomidine at 0.8 mcg/kg/h and fentanyl infusions at 200 tita grams an hour to maintain ventilator synchrony RASS now at 0 Ativan 2 mg every 5 hours as needed for anxiety/agitation, placed on hold. Discussed with OB karolina Faustin short-term benzodiazepines in Midazolam drip was discontinued Hydroxyzine 50 mg IM every 6 hours as needed for anxiety Acetaminophen 650 mg every 6 hours as needed Respiratory: Acute asthma exacerbation Pneumonia possibly community-acquired Wean FiO2 maintain O2 saturation 93-95% Currently on albuterol/ipratropium aerosols every 4 hours with albuterol aerosols every 2 hours as needed dyspnea Methylprednisolone 60 mg IV x 1 dose initially, methylprednisolone 40 mg every 12 hours Pulmonology following Patient was previously on a Zithromax-Rocephin and ampicillin (day 2) F/U sputum culture arterial line for serial blood gas monitoring 08/20 CXR-bilateral lower airspace disease Cardiovascular: Sinus tachycardia Maintain map greater than 65mmHG Tachycardia secondary to bouts of agitation Renal: No Rodriguez indicated -- Strict I/Os FEN/GI: Maintain n.p.o. status for now with plan to extubate today Insert OGT and continue on LIWS Abdominal ultrasound no acute findings Ondansetron and hydroxyzine for nausea Heme/ID: Lactic acidemia-resolved Normocytic anemia Rhinovirus positive F/U CBC revealed normocytic anemia. Leukocytosis has resolved No growth to date blood culture x 2. Influenza nasal swab and strep pneumo and Legionella urinary antigen-negative No growth to date sputum culture ID following-piperacillin/tazobactam initiated, ampicillin and ceftriaxone discontinued BC count continues to down trend. Lactic acid normal Endocrine: Glucose monitoring per ICU protocol -- SSI Prophylaxis: GI Prophylaxis Famotidine twice daily DVT Prophylaxis -- SCDs, Heparin SQ BID Lines: Peripheral IVs x2. Central line if indicated Dispo: Level 3 follow up Code Status: Full code Discussed Condition With: Family at bedside. Care plan discussed and all questions answered (1) Asthma exacerbation Qualifiers: Asthma severity: unspecified severity Asthma persistence: unspecified Qualified Code(s): J45.901 - Unspecified asthma with (acute) exacerbation (2) Asthma with acute exacerbation in adult Qualifiers: Asthma severity: unspecified severity Asthma persistence: unspecified Qualified Code(s): J45.901 - Unspecified asthma with (acute) exacerbation
[2018-08-23] MEDS: MethylPREDNISolone Sod Succinate Inj 40 MG/ML Vial IV.PUSH SCH ×2 (10:20→23:42)
[2018-08-23 10:51] LABS: ABG Base Excess -2.4 mmol/L (-2-2); ABG PCO2 33 mmHg (38-42); ABG PO2 114 mmHG (61-120)
--- NOTE | 2018-08-23 11:29 | P.PNID ---
Subjective Remarks: Patient has just been extubated a few minutes ago. She appears comfortable. Currently on nasal cannula. Awake and alert. No distress currently. Afebrile. Respiratory viral culture has rhinovirus. Sputum culture has normal snow. White blood cell count has decreased. 28-year-old white female who is 20 weeks . The patient has history of COPD. She was admitted to [facility] and subsequently transferred to [place] for further management. She was intubated; currently on the ventilator. The patient had presented to [facility] 3 nights ago and she was given steroids and albuterol inhaler and discharged and after several hours she returned because she was having trouble breathing and this prompted further treatment and transferred to [facility]. Antibiotics: Piperacillin/tazobactam started on 08/21/2018. Lines: IV lines intact. Allergies/Adverse Reactions: Allergies aspirin Allergy (Verified 06/19/18 15:08) Swelling of Lip/Tongue/Throat ibuprofen Allergy (Verified 06/19/18 15:07) Swelling of Lip/Tongue/Throat NSAIDS (Non-Steroidal Anti-Inflamma Allergy (Verified 06/19/18 15:07) Shortness of Breath Objective Vital Signs 08/22/18 11:28 08/22/18 11:36 08/22/18 11:45 Temperature Pulse Rate 84 84 82 Respiratory Rate 15 11 L 11 L Blood Pressure 104/53 L 102/56 L Pulse Oximetry 100 98 98 08/22/18 12:00 08/22/18 12:15 08/22/18 12:30 Temperature 97.7 F Pulse Rate 85 79 78 Respiratory Rate 11 L 11 L 11 L Blood Pressure 104/56 L 98/54 L 103/55 L Pulse Oximetry 97 97 97 08/22/18 12:45 08/22/18 13:00 08/22/18 13:15 Temperature Pulse Rate 69 66 68 Respiratory Rate 10 L 11 L 11 L Blood Pressure 108/59 L 107/56 L 107/57 L Pulse Oximetry 98 96 97 08/22/18 13:30 08/22/18 13:45 08/22/18 14:00 Temperature Pulse Rate 69 65 69 Respiratory Rate 11 L 12 11 L Blood Pressure 108/57 L 109/60 106/58 L Pulse Oximetry 96 97 96 08/22/18 14:15 08/22/18 14:30 08/22/18 14:45 Temperature Pulse Rate 69 67 67 Respiratory Rate 11 L 11 L 12 Blood Pressure 108/56 L 107/58 L 107/56 L Pulse Oximetry 96 96 96 08/22/18 15:00 08/22/18 15:15 08/22/18 15:30 Temperature Pulse Rate 68 71 69 Respiratory Rate 11 L 11 L 11 L Blood Pressure 106/58 L 104/55 L 108/58 L Pulse Oximetry 96 96 98 08/22/18 15:39 08/22/18 15:45 08/22/18 16:00 Temperature 97.6 F Pulse Rate 70 71 73 Respiratory Rate 14 11 L 12 Blood Pressure 106/58 L 103/57 L Pulse Oximetry 96 96 96 08/22/18 16:15 08/22/18 16:30 08/22/18 16:45 Temperature Pulse Rate 74 69 67 Respiratory Rate 11 L 12 10 L Blood Pressure 96/51 L 102/59 L 106/55 L Pulse Oximetry 99 97 96 08/22/18 17:00 08/22/18 17:15 08/22/18 17:30 Temperature Pulse Rate 70 66 64 Respiratory Rate 11 L 12 12 Blood Pressure 105/58 L 96/56 L 100/59 L Pulse Oximetry 99 100 100 08/22/18 17:45 08/22/18 18:00 08/22/18 18:15 Temperature Pulse Rate 66 65 62 Respiratory Rate 11 L 11 L 12 Blood Pressure 96/56 L 100/56 L 101/55 L Pulse Oximetry 100 100 100 08/22/18 18:30 08/22/18 18:45 08/22/18 19:00 Temperature Pulse Rate 56 L 61 66 Respiratory Rate 12 12 12 Blood Pressure 102/58 L 102/58 L 95/52 L Pulse Oximetry 100 100 100 08/22/18 19:15 08/22/18 19:30 08/22/18 19:45 Temperature Pulse Rate 66 66 66 Respiratory Rate 11 L 12 11 L Blood Pressure 90/54 L 90/55 L 90/54 L Pulse Oximetry 100 100 100 08/22/18 20:00 08/22/18 20:15 08/22/18 20:30 Temperature 97.5 F L Pulse Rate 66 65 66 Respiratory Rate 12 12 12 Blood Pressure 89/51 L 88/52 L 87/52 L Pulse Oximetry 100 100 100 08/22/18 20:45 08/22/18 21:00 08/22/18 21:15 Temperature Pulse Rate 66 66 63 Respiratory Rate 12 11 L 12 Blood Pressure 89/53 L 91/55 L 94/55 L Pulse Oximetry 100 100 100 08/22/18 21:30 08/22/18 21:45 08/22/18 22:00 Temperature Pulse Rate 64 59 L 57 L Respiratory Rate 12 12 12 Blood Pressure 92/53 L 90/52 L 92/50 L Pulse Oximetry 100 100 100 08/22/18 22:15 08/22/18 22:30 08/22/18 22:45 Temperature Pulse Rate 57 L 59 L 60 Respiratory Rate 12 12 12 Blood Pressure 92/53 L 93/53 L 91/50 L Pulse Oximetry 100 100 100 08/22/18 23:00 08/22/18 23:15 08/22/18 23:30 Temperature Pulse Rate 61 61 59 L Respiratory Rate 12 12 12 Blood Pressure 90/50 L 88/54 L 91/54 L Pulse Oximetry 100 100 100 08/22/18 23:37 08/22/18 23:39 08/22/18 23:45 Temperature Pulse Rate 59 L 59 L Respiratory Rate 13 13 12 Blood Pressure 86/51 L Pulse Oximetry 100 100 08/23/18 00:00 08/23/18 00:15 08/23/18 00:30 Temperature 96.0 F L Pulse Rate 58 L 55 L 54 L Respiratory Rate 12 12 11 L Blood Pressure 93/51 L 96/53 L 97/60 L Pulse Oximetry 100 100 100 08/23/18 00:45 08/23/18 01:00 08/23/18 01:15 Temperature Pulse Rate 53 L 54 L 53 L Respiratory Rate 12 12 12 Blood Pressure 94/54 L 96/55 L 97/55 L Pulse Oximetry 100 100 100 08/23/18 01:30 08/23/18 01:45 08/23/18 02:00 Temperature Pulse Rate 57 L 56 L 56 L Respiratory Rate 12 12 12 Blood Pressure 94/54 L 93/50 L 93/52 L Pulse Oximetry 100 100 100 08/23/18 02:15 08/23/18 02:30 08/23/18 02:45 Temperature Pulse Rate 59 L 57 L 54 L Respiratory Rate 12 14 13 Blood Pressure 94/52 L 97/53 L 98/54 L Pulse Oximetry 100 100 100 02/20/19 03:00 08/23/18 03:15 08/23/18 03:30 Temperature Pulse Rate 56 L 56 L 56 L Respiratory Rate 15 13 15 Blood Pressure 94/52 L 98/53 L 99/58 L Pulse Oximetry 100 100 100 08/23/18 03:35 08/23/18 03:36 08/23/18 03:45 Temperature Pulse Rate 53 L 56 L Respiratory Rate 14 14 12 Blood Pressure 99/55 L Pulse Oximetry 100 100 08/23/18 04:00 08/23/18 06:00 08/23/18 08:00 Temperature 97.5 F L 98.9 F Pulse Rate 59 L 59 L 67 Respiratory Rate 13 30 H Blood Pressure 100/56 L 117/58 L Pulse Oximetry 100 94 L 08/23/18 09:00 08/23/18 09:26 08/23/18 10:00 Temperature Pulse Rate 93 H 91 H Respiratory Rate 18 18 Blood Pressure Pulse Oximetry 97 08/23/18 10:44 Temperature Pulse Rate 84 Respiratory Rate 15 Blood Pressure Pulse Oximetry Intake & Output 08/22/18 08/23/18 08/23/18 18:59 06:59 18:59 Intake Total 1484 / 1484 1756 / 1756 1300 / 1300 Output Total 1800 / 1800 1250 / 1250 Balance -316 / -316 506 / 506 1300 / 1300 Weight 85.5 kg Intake: IV 1346 / 1346 1650 / 1650 1300 / 1300 Precedex Inj 1,000 MCG In NS 46 / 46 250 / 250 Inj 240 ML @ 0.2 MCG/KG/HR 3.92 mls/hr IV.CONT TITRATE PRN Rx# :[id number] D5W/1/2 NS Inj 1,000 ML @ 100 1000 / 1000 1000 / 1000 1000 / 1000 mls/hr IV.CONT .Q10H YASMEEN Rx#: [id number] Diprivan 1000 mg/100 ml Inj 1, 200 / 200 300 / 300 000 mg In 100 ml @ 5 MCG/KG/MIN 2.355 mls/hr IV.CONT TITRATE PRN Rx#:[id number] Zosyn 3.375 GM Premix 3.375 gm 100 / 100 100 / 100 50 / 50 In 50 ml @ 100 mls/hr IV.SIG Q6H YASMEEN Rx#:[id number] fentaNYL 10 mcg/mL Premix Drip 250 / 250 2,500 mcg In 250 ml @ 50 MCG/HR 5 mls/hr IV.SIG TITRATE PRN Rx #:[id number] Tube Feeding 78 / 78 106 / 106 Water Bolus Amount 60 / 60 Output: Urine Amount (Catheter) 1800 / 1800 1250 / 1250 Indwelling Urethral Catheter 1800 / 1800 1250 / 1250 08/20/18 13:20 Blood - Peripheral Aerobic Blood Culture - Preliminary No growth in 3 days 08/20/18 13:20 Blood - Peripheral Anaerobic Blood Culture - Preliminary No growth in 3 days 08/20/18 13:26 Blood - Peripheral Aerobic Blood Culture - Preliminary No growth in 3 days 08/20/18 13:26 Blood - Peripheral Anaerobic Blood Culture - Preliminary No growth in 3 days 08/20/18 15:34 Sputum - Endotracheal Gram Stain - Final 08/20/18 15:34 Sputum - Endotracheal Sputum Culture - Final Heavy growth normal respiratory snow 08/20/18 15:00 Urine - Catheterized Urine Legionella Antigen - Final Presumptive negative for Legionella pneumophila serogroup 1 antigen in urine, suggesting no recent or recurrent infection. Infection due to Legionella cannot be ruled out since other serogroups and species may cause disease, antigen may not be present in urine in early infection, and the level of antigen present in the urine may be below the detection limit of the test. 08/20/18 15:00 Urine - Catheterized Urine Streptococcus pneumoniae Antigen ( M - Final Presumptive negative for streptococcus pneumoniae antigen, suggesting no current or recent infection. Infection due to Streptococcus pneumoniae cannot be ruled out since the antigen present in the sample may be below the detection limit of the test. 08/20/18 11:30 Nasal Wash Influenza Types A,B Antigen - Final Negative for FLU A and B antigen Infection due to influenza A or B cannot be ruled out since the antigen present in the sample may be below the detection limit of the test. Lab - Hematology Results 08/22/18 08/23/18 05:29 06:07 WBC 14.5 H 8.2 RBC 3.12 L 2.83 L Hgb 10.7 L 10.0 L Hct 31.0 L 28.2 L MCV 99.4 99.5 MCH 34.2 H 35.2 H MCHC 34.4 35.4 RDW 13.4 13.7 Plt Count 190 166 MPV 8.7 8.4 Neut % (Auto) 88.8 H 81.7 H Lymph % (Auto) 6.1 L 11.3 [place] % (Auto) 5.1 6.8 Eos % (Auto) 0.0 0.1 Baso % (Auto) 0.0 0.1 Neut # (Auto) 12.9 H 6.7 Lymph # (Auto) 0.9 L 0.9 L [place] # (Auto) 0.7 0.6 Eos # (Auto) 0.0 0.0 Baso # (Auto) 0.0 0.0 WBC Differential . . Differential Comment Auto diff final Auto diff final Lab - Chemistry Results 08/21/18 08/21/18 08/21/18 11:49 17:34 23:18 Sodium Potassium Chloride Carbon Dioxide Anion Gap BUN Creatinine Estimated GFR POC Glucose 127 H 160 H 99 Random Glucose Calcium Phosphorus Magnesium 08/22/18 08/22/18 08/22/18 05:29 12:41 17:52 Sodium 142 Potassium 4.1 Chloride 114 H Carbon Dioxide 19.2 L Anion Gap 9 BUN 9 Creatinine 0.68 Estimated GFR Greater than 89 POC Glucose 109 136 H Random Glucose 120 H Calcium 7.6 L Phosphorus 2.5 Magnesium 2.2 08/22/18 08/23/18 08/23/18 23:43 05:22 06:07 Sodium 142 Potassium 4.5 Chloride 111 H Carbon Dioxide 23.4 Anion Gap 8 BUN 8 Creatinine 0.60 Estimated GFR Greater than 89 POC Glucose 144 H 132 H Random Glucose 119 H Calcium 7.7 L Phosphorus 3.0 Magnesium 2.3 Imaging: ITS Impressions Abdomen Ultrasound 08/21/18 00:00 CONCLUSION: 1. Mild hepatomegaly, nonspecific. 2. Small right pleural effusion. Venous Doppler Study 08/22/18 00:00 CONCLUSION: 1. Venous thrombosis of the left upper extremity as described. 2. No venous thrombosis of the right upper extremity. Chest X-Ray 08/22/18 08:32 CONCLUSION: 1. Motion limited exam with grossly clear lungs. Physical Exam: PHYSICAL EXAMINATION: GENERAL: Patient is awake and alert. No distress. HEENT: Extraocular movements grossly intact, mild conjunctival erythema. No icterus. Oropharynx is intubated. NECK: No swelling. No adenopathy. LUNGS: Slight basilar rhonchi. HEART: Regular S1 and S2, without murmurs, rubs or gallops. ABDOMEN: Diminished bowel sounds; distended, soft. No tenderness appreciated. EXTREMITIES: No clubbing, cyanosis or edema. SKIN: No rash. NEUROLOGIC: No gross focal finding. PSYCHIATRIC: Calm. Assessment and Plan - Plan IMPRESSION: 1. Asthma exacerbation. 2. Respiratory failure. 3. Leukocytosis. WBC decreasing. 4. Possible pneumonia. Sputum culture has normal snow. The rhinovirus recovered on culture is unlikely to be causing her degree of respiratory illness. At this point, it is unclear whether the leukocytosis is due to infection. She has been receiving steroids and it could be associated; however, she does have a left shift and therefore it is possible it could be due to infection. RECOMMENDATIONS: 1. Continue piperacillin/tazobactam and observe over the next 24 hours. If stable consider stopping antibiotic. 2. Monitor clinical status.
[2018-08-23] MEDS: Dexmedetomidine Inj 1,000 MCG in Sodium Chlor 0.9% Inj 240 ML IV.CONT PRN ×2 (11:49→23:13)
--- NOTE | 2018-08-23 15:05 | P.DIET ---
Nutritional Evaluation Type of nutrition evaluation: follow-up Nutrition consult regarding: Tube Feeding Nutrition screening: MDC (TF'ing) Screening comments: 08/21/18 MDC for TF'ing Subjective Subjective Comments: Per RN pt is consuming her meal trays but will take a longer time d/t just being extubated this a.m. Objective - Diagnosis asthma exacerbation - Objective % IBW: 164 (IBW = 110lb) Body Weight Used for Calculations: IBW (for energy needs), Actual (for protein needs 82kg) Energy Needs - Lower Range (kCal/kg): 30 Energy Needs - Upper Range (kCal/kg): 35 Lower Limit kCal/kg (kCals): 1,800 (+300kcal for 2nd trimester) Upper Limit kCal/kg (kCals): 2,050 Lower Limit Protein Factor (Grams per Kg): 1.0 Upper Limit Protein Factor (Grams per Kg): 1.3 Lower Protein Needs (Protein): 82 Upper Protein Needs (Protein): 107 Dietitian Reviewed in Medical Record: Current diet, Curent medications, Intake & Output, Labs, Medical history Diet Order: regular Objective Comments: PMH: asthma Meds: insulin Labs: random glucose 120 119, Ca+ 7.7 LBM 08/19/18 Assessment Assessment: Pt NPO alert x3 days received today, extubated today 08/23/18 this a.m and awake now. Pt passed her ST swallow eval and now on a regular diet. RD will continue to monitor pts nutritional needs closely for a PO supplement as needed. Continue to monitor PO intake. Labs reviewed dietitian following. Brought forward 08/21/18: Pt is on her 2nd trimester, 20 weeks gestation , increased energy needs as assessed above. Recommendations: 1. Continue regular diet 2. RD will continue to monitor pts nutritional needs closely for a PO supplement as needed 3. Continue to monitor PO intake 4. Dietitian following Dietitian to Monitor: Lab values, Glucose level, Intake & Output, Tube feeding tolerance, Weight change, Medical course
--- NOTE | 2018-08-23 19:03 | P.PNPL ---
Subjective Interval history: 28 YOWF, , with Br asthma exac Extubated Sitting up in chair Eating dinner has mild wheezing Occ cough Physical Exam Vital signs: Vital Signs 08/22/18 19:15 08/22/18 19:30 08/22/18 19:45 Temperature Pulse Rate 66 66 66 Respiratory Rate 11 L 12 11 L Blood Pressure 90/54 L 90/55 L 90/54 L Pulse Oximetry 100 100 100 08/22/18 20:00 08/22/18 20:15 08/22/18 20:30 Temperature 97.5 F L Pulse Rate 66 65 66 Respiratory Rate 12 12 12 Blood Pressure 89/51 L 88/52 L 87/52 L Pulse Oximetry 100 100 100 08/22/18 20:45 08/22/18 21:00 08/22/18 21:15 Temperature Pulse Rate 66 66 63 Respiratory Rate 12 11 L 12 Blood Pressure 89/53 L 91/55 L 94/55 L Pulse Oximetry 100 100 100 08/22/18 21:30 08/22/18 21:45 08/22/18 22:00 Temperature Pulse Rate 64 59 L 57 L Respiratory Rate 12 12 12 Blood Pressure 92/53 L 90/52 L 92/50 L Pulse Oximetry 100 100 100 08/22/18 22:15 08/22/18 22:30 08/22/18 22:45 Temperature Pulse Rate 57 L 59 L 60 Respiratory Rate 12 12 12 Blood Pressure 92/53 L 93/53 L 91/50 L Pulse Oximetry 100 100 100 08/22/18 23:00 08/22/18 23:15 08/22/18 23:30 Temperature Pulse Rate 61 61 59 L Respiratory Rate 12 12 12 Blood Pressure 90/50 L 88/54 L 91/54 L Pulse Oximetry 100 100 100 08/22/18 23:37 08/22/18 23:39 08/22/18 23:45 Temperature Pulse Rate 59 L 59 L Respiratory Rate 13 13 12 Blood Pressure 86/51 L Pulse Oximetry 100 100 08/23/18 00:00 08/23/18 00:15 08/23/18 00:30 Temperature 96.0 F L Pulse Rate 58 L 55 L 54 L Respiratory Rate 12 12 11 L Blood Pressure 93/51 L 96/53 L 97/60 L Pulse Oximetry 100 100 100 08/23/18 00:45 08/23/18 01:00 08/23/18 01:15 Temperature Pulse Rate 53 L 54 L 53 L Respiratory Rate 12 12 12 Blood Pressure 94/54 L 96/55 L 97/55 L Pulse Oximetry 100 100 100 08/23/18 01:30 08/23/18 01:45 08/23/18 02:00 Temperature Pulse Rate 57 L 56 L 56 L Respiratory Rate 12 12 12 Blood Pressure 94/54 L 93/50 L 93/52 L Pulse Oximetry 100 100 100 08/23/18 02:15 08/23/18 02:30 08/23/18 02:45 Temperature Pulse Rate 59 L 57 L 54 L Respiratory Rate 12 14 13 Blood Pressure 94/52 L 97/53 L 98/54 L Pulse Oximetry 100 100 100 08/23/18 03:00 08/23/18 03:15 08/23/18 03:30 Temperature Pulse Rate 56 L 56 L 56 L Respiratory Rate 15 13 15 Blood Pressure 94/52 L 98/53 L 99/58 L Pulse Oximetry 100 100 100 08/23/18 03:35 08/23/18 03:36 08/23/18 03:45 Temperature Pulse Rate 53 L 56 L Respiratory Rate 14 14 12 Blood Pressure 99/55 L Pulse Oximetry 100 100 08/23/18 04:00 08/23/18 06:00 08/23/18 08:00 Temperature 97.5 F L 98.9 F Pulse Rate 59 L 59 L 67 Respiratory Rate 13 30 H Blood Pressure 100/56 L 117/58 L Pulse Oximetry 100 94 L 08/23/18 09:00 08/23/18 09:26 08/23/18 10:00 Temperature Pulse Rate 93 H 91 H Respiratory Rate 18 18 Blood Pressure Pulse Oximetry 97 08/23/18 10:44 08/23/18 12:00 08/23/18 12:38 Temperature 99.3 F Pulse Rate 84 81 82 Respiratory Rate 15 18 18 Blood Pressure 117/60 Pulse Oximetry 94 L 08/23/18 13:50 08/23/18 15:53 08/23/18 16:00 Temperature 99.4 F Pulse Rate 129 H 117 H 114 H Respiratory Rate 20 26 H Blood Pressure 123/53 L Pulse Oximetry 97 08/23/18 18:00 Temperature Pulse Rate 126 H Respiratory Rate Blood Pressure Pulse Oximetry Intake & Output 08/23/18 08/23/1808/24/19 06:59 18:59 06:59 Intake Total 1756 / 1756 2965 / 2965 Output Total 1250 / 1250 2400 / 2400 Balance 506 / 506 565 / 565 Weight 85.5 kg Intake: IV 1650 / 1650 2725 / 2725 Precedex Inj 1,000 MCG In NS 250 / 250 250 / 250 Inj 240 ML @ 0.2 MCG/KG/HR 3.92 mls/hr IV.CONT TITRATE PRN Rx# :[id number] D5W/1/2 NS Inj 1,000 ML @ 100 1000 / 1000 2000 / 2000 mls/hr IV.CONT .Q10H YASMEEN Rx#: [id number] Diprivan 1000 mg/100 ml Inj 1, 300 / 300 65 / 65 000 mg In 100 ml @ 5 MCG/KG/MIN 2.355 mls/hr IV.CONT TITRATE PRN Rx#:[id number] Zosyn 3.375 GM Premix 3.375 gm 100 / 100 100 / 100 In 50 ml @ 100 mls/hr IV.SIG Q6H YASMEEN Rx#:[id number] fentaNYL 10 mcg/mL Premix Drip 310 / 310 2,500 mcg In 250 ml @ 50 MCG/HR 5 mls/hr IV.SIG TITRATE PRN Rx #:[id number] Oral 240 / 240 Tube Feeding 106 / 106 Output: Urine Amount (Catheter) 1250 / 1250 2400 / 2400 Indwelling Urethral Catheter 1250 / 1250 2400 / 2400 Other: # Bowel Movements 0 GENERAL: WBWn WF, mild sob SKIN: Warm and dry. HEAD: Normocephalic. EYES: No scleral icterus. No injection or drainage. NECK: Supple, trachea midline. No JVD or lymphadenopathy. CARDIOVASCULAR: Regular rate and rhythm without murmurs, gallops, or rubs. RESPIRATORY: Breath sounds equal bilaterally. No accessory muscle use. Exp rhonchi GASTROINTESTINAL: Abdomen soft, non-tender, nondistended. MUSCULOSKELETAL: No cyanosis, or edema. BACK: Nontender without obvious deformity. No CVA tenderness. - Urinary Catheter Management Indwelling Urethral Catheter Cath placed during this visit: yes, but has since been removed by the nurse Reason for continuing: Other continuation reason Insertion date: 08/20/18 Insertion time: 14:45 Removal date: 08/23/18 Removal time: 16:00 Assessment and Plan - Plan IMPRESSION: VDRF--extuabted 08/23 Br asthma exac Bronchitis PLAN: Cont Abx per ID Cont Steroids Aerosol nebs Symbicort 2 puffs bid SQ Lovenox
[2018-08-24] MEDS: Insulin NovoLOG Aspart Correctional Sugar Inj SQ SCH ×4 (00:36→17:15)
[2018-08-24] MEDS: Oral Hygiene Kit OROPHARYNG SCH ×4 (00:36→15:09)
[2018-08-24] MEDS: Chlorhexidine Gluconate 2% 1 Pack (2 Cloths) TOPICAL SCH ×2 (03:12)
[2018-08-24] MEDS: Piperacil/Tazo 3.375 GM Premix 3.375 GM/50 ML PIGGYBACK IV.SIG SCH ×2 (03:24→08:25)
[2018-08-24] MEDS: Dextrose 5%/NaCl 0.45% Inj 1,000 ML IV.CONT SCH (03:24)
--- NOTE | 2018-08-24 07:30 | P.OBGPN ---
28 y/o @ 20 weeks. S/p extubation. Doing well. Denies vaginal bleeding, contractions/cramping, leakage of fluid/abnormal discharge. Endorses some movement. No concerns or questions voiced. Patient is awake, alert, and conversant. FHT via bedside doppler 160. Abdomen non-tender, non-distended. No LE edema or cyanosis noted. Plan to continue daily heart tones. JONO Simental PL
[2018-08-24 08:21] LABS: Baso % (Auto) 0.2 % (0.0-2.0); Eos % (Auto) 0.1 % (0.0-4.0); Hematocrit 30.2 % (35.0-46.0); Hemoglobin 10.6 gm/dL (11.6-15.3); Lymph # (Auto) 1.9 th/mm3 (1.0-4.8); Lymph % (Auto) 16.7 % (9.0-44.0); Mean Corpuscular HGB Conc 35.1 % (32.0-36.0); Mean Corpuscular Hemoglobin 34.4 pg (27.0-34.0); Mean Corpuscular Volume 98.2 fL (80.0-100.0); Mean Platelet Volume 8.3 fL (7.0-11.0); Mono # (Auto) 0.5 th/mm3 (0.0-0.9); Mono % (Auto) 4.4 % (0.0-8.0); Neut # (Auto) 8.9 th/mm3 (1.8-7.7); Neut % (Auto) 78.6 % (16.0-70.0); Platelet Count 190 th/mm3 (150-450); Red Blood Count 3.07 mil/mm3 (4.00-5.30); Red Cell Distribution Width 13.5 % (11.6-17.2); White Blood Count 11.3 th/mm3 (4.0-11.0)
[2018-08-24] MEDS: Enoxaparin Inj 40 MG/0.4 ML Syringe SQ SCH (08:25)
[2018-08-24] MEDS: Prenatal Vitamin Chewable Tablet CHEW SCH (08:25)
[2018-08-24] MEDS: Budesonide-Formoterol 160/4.5 MCG 6 GM Inhaler INH SCH ×2 (08:26→20:07)
[2018-08-24] MEDS: Chlorhexidine 0.12% Oral Kit 15 ML UDC OROPHARYNG SCH ×2 (08:26→20:07)
[2018-08-24] MEDS: Famotidine 20 MG Tablet PO SCH ×2 (08:27→20:07)
--- NOTE | 2018-08-24 08:30 | P.PNCC ---
Subjective Subjective Remarks/Hospital Course: 08/21: Last evening the patient's ABG worsen patient's respiratory status deteriorated the patient required intubation and mechanical ventilation .labs obtained the patient was noted to have a leukocytosis cultures were obtained empiric antibiotics were initiated to include ampicillin and Rocephin both discussed with [employer] Dr. Gonsalez. ID was also consulted. this a.m. the patient's oxygen requirements decreased overnight. Patient transition to Precedex in anticipation for possible extubation today. The patient was on low-dose Precedex 0.3 mcgs/kg/hr. This a.m. the patient complained chest tightness, butyryl neb nebulizer was provided. Patient has OGT in situ the patient began vomiting, NG tube placed on suctioned, subsequently dislodged from vomiting, and removed. Patient became extremely agitated. Precedex infusion increased. Discussed case with Dr. Gonsalez at bedside plan for Vistaril 50 mg IM every 6 hours as recommended. Patient complaining of persistent nausea, Zofran continued at every 6 hours as needed. 08/22: No acute events overnight. The patient remains on Precedex infusion at 1 tita per kilo per hour peer the patient continues to give Vistaril 50 mg every 6 IM secondary to extreme agitation/anxiety . FiO2 requirements have been significantly decreased to 30%. Patient continues successfully on CPAP trials , plan for SBT parameters and possible extubation this a.m. The patient remains n.p.o. , dietary consult has been recommending Jevity 1.5 we will hold at this time for in anticipation of possible extubation. Ultrasound bilateral lower extremities are pending peer abdominal ultrasound yesterday was performed which showed no common bile duct dilatation concern for continued metabolic acidosis. 08/23: Patient extremely anxious exam. Will try spontaneous breathing trials attempt extubation today. Tube feeds are off. Noted to have left upper extremity severe venous thrombosis involving the cephalic and basilic veins. Echocardiogram not well visualized. SUBJECTIVE: 08/24: Without complication. Currently 4 L nasal cannula. Received 4 mg of Lorazepam overnight. Afebrile. Remains on dexmedetomidine drip. Less wheezy. tones adequate. Objective Vital Signs / I&O: Vital Signs 08/23/18 09:00 08/23/18 09:26 08/23/18 10:00 Temperature Pulse Rate 93 H 91 H Respiratory Rate 18 18 Blood Pressure Pulse Oximetry 97 08/23/18 10:44 08/23/18 12:00 08/23/18 12:38 Temperature 99.3 F Pulse Rate 84 81 82 Respiratory Rate 15 18 18 Blood Pressure 117/60 Pulse Oximetry 94 L 08/23/18 12:45 08/23/18 13:00 08/23/18 13:15 Temperature Pulse Rate 85 136 H 119 H Respiratory Rate 20 32 H 22 Blood Pressure 112/55 L 110/57 L 115/59 L Pulse Oximetry 98 91 L 93 L 08/23/18 13:30 08/23/18 13:45 08/23/18 13:50 Temperature Pulse Rate 130 H 139 H 129 H Respiratory Rate 30 H 36 H Blood Pressure 116/63 114/57 L Pulse Oximetry 93 L 93 L 08/23/18 14:00 08/23/18 14:15 08/23/18 14:30 Temperature Pulse Rate 132 H 108 H 120 H Respiratory Rate 23 23 27 H Blood Pressure 119/57 L 114/57 L 112/56 L Pulse Oximetry 94 L 95 94 L 08/23/18 14:45 08/23/18 15:00 08/23/18 15:15 Temperature Pulse Rate 103 H 91 H 91 H Respiratory Rate 22 22 24 Blood Pressure 115/55 L 108/53 L 111/54 L Pulse Oximetry 95 96 95 08/23/18 15:30 08/23/18 15:45 08/23/18 15:53 Temperature Pulse Rate 101 H 99 H 117 H Respiratory Rate 20 24 20 Blood Pressure 108/57 L 118/57 L Pulse Oximetry 94 L 96 08/23/18 16:00 08/23/18 17:00 08/23/18 18:00 Temperature 99.4 F Pulse Rate 114 H 116 H 119 H Respiratory Rate 26 H 25 H 25 H Blood Pressure 123/53 L Pulse Oximetry 97 93 L 95 08/23/18 18:30 08/23/18 19:00 08/23/18 19:54 Temperature Pulse Rate 102 H 100 H 115 H Respiratory Rate 22 20 18 Blood Pressure 131/62 135/58 L Pulse Oximetry 98 95 08/23/18 20:00 08/23/18 21:00 08/23/18 21:09 Temperature 98.7 F Pulse Rate 105 H 99 H 121 H Respiratory Rate 21 23 20 Blood Pressure Pulse Oximetry 98 95 94 L 08/23/18 21:32 08/23/18 22:00 08/23/18 23:00 Temperature Pulse Rate 121 H 105 H 124 H Respiratory Rate 22 20 25 H Blood Pressure 118/56 L 111/65 99/60 L Pulse Oximetry 94 L 96 94 L 08/23/18 23:02 08/23/18 23:07 08/23/18 23:08 Temperature Pulse Rate 132 H 137 H Respiratory Rate 40 H 24 Blood Pressure 100/63 100/63 Pulse Oximetry 93 L 08/24/18 00:00 08/24/18 00:09 08/24/18 00:10 Temperature 98.5 F Pulse Rate 97 H 119 H 117 H Respiratory Rate Blood Pressure 126/69 Pulse Oximetry 97 96 08/24/18 00:16 08/24/18 01:00 08/24/18 02:00 Temperature Pulse Rate 126 H 96 H 82 Respiratory Rate 19 18 22 Blood Pressure 124/59 L 120/56 L Pulse Oximetry 95 95 08/24/18 03:00 08/24/18 04:00 08/24/18 04:02 Temperature 98.3 F Pulse Rate 102 H 84 91 H Respiratory Rate 22 23 19 Blood Pressure 140/78 126/60 Pulse Oximetry 95 98 08/24/18 05:00 08/24/18 06:00 Temperature Pulse Rate 66 80 Respiratory Rate 15 Blood Pressure 112/57 L Pulse Oximetry 97 Intake & Output 08/23/18 08/24/18 08/24/18 18:59 06:59 18:59 Intake Total 2965 / 2965 2250 / 2250 Output Total 2400 / 2400 1999 / 1999 Balance 565 / 565 250 / 250 Weight 80 kg Intake: IV 2725 / 2725 1350 / 1350 Precedex Inj 1,000 MCG In NS 250 / 250 250 / 250 Inj 240 ML @ 0.2 MCG/KG/HR 3.92 mls/hr IV.CONT TITRATE PRN Rx# :[id number] D5W/1/2 NS Inj 1,000 ML @ 100 1999 / 1999 1000 / 1000 mls/hr IV.CONT .Q10H [facility] Rx#: [id number] Diprivan 1000 mg/100 ml Inj 1, 65 / 65 000 mg In 100 ml @ 5 MCG/KG/MIN 2.355 mls/hr IV.CONT TITRATE PRN Rx#:[id number] Zosyn 3.375 GM Premix 3.375 gm 100 / 100 100 / 100 In 50 ml @ 100 mls/hr IV.SIG Q6H [facility] Rx#:[id number] fentaNYL 10 mcg/mL Premix Drip 310 / 310 2,500 mcg In 250 ml @ 50 MCG/HR 5 mls/hr IV.SIG TITRATE PRN Rx #:[id number] Oral 240 / 240 900 / 900 Output: Urine 1999 / 1999 Urine Amount (Catheter) 2400 / 2400 Indwelling Urethral Catheter 2400 / 2400 Other: # Voids 6 # Bowel Movements 0 0 Result Diagrams: 08/23/18 06:07 08/23/18 06:07 Other Results: Microbiology 08/20/18 13:20 Blood - Peripheral Aerobic Blood Culture - Preliminary No growth in 3 days 08/20/18 13:20 Blood - Peripheral Anaerobic Blood Culture - Preliminary No growth in 3 days 08/20/18 13:26 Blood - Peripheral Aerobic Blood Culture - Preliminary No growth in 3 days 08/20/18 13:26 Blood - Peripheral Anaerobic Blood Culture - Preliminary No growth in 3 days 08/20/18 15:34 Sputum - Endotracheal Gram Stain - Final 08/20/18 15:34 Sputum - Endotracheal Sputum Culture - Final Heavy growth normal respiratory snow 08/20/18 15:00 Urine - Catheterized Urine Legionella Antigen - Final Presumptive negative for Legionella pneumophila serogroup 1 antigen in urine, suggesting no recent or recurrent infection. Infection due to Legionella cannot be ruled out since other serogroups and species may cause disease, antigen may not be present in urine in early infection, and the level of antigen present in the urine may be below the detection limit of the test. 08/20/18 15:00 Urine - Catheterized Urine Streptococcus pneumoniae Antigen ( M - Final Presumptive negative for streptococcus pneumoniae antigen, suggesting no current or recent infection. Infection due to Streptococcus pneumoniae cannot be ruled out since the antigen present in the sample may be below the detection limit of the test. 08/20/18 11:30 Nasal Wash Influenza Types A,B Antigen - Final Negative for FLU A and B antigen Infection due to influenza A or B cannot be ruled out since the antigen present in the sample may be below the detection limit of the test. Imaging: ITS Impressions Abdomen Ultrasound 08/21/18 00:00 CONCLUSION: 1. Mild hepatomegaly, nonspecific. 2. Small right pleural effusion. Venous Doppler Study 08/22/18 00:00 CONCLUSION: 1. Venous thrombosis of the left upper extremity as described. 2. No venous thrombosis of the right upper extremity. Chest X-Ray 08/22/18 08:32 CONCLUSION: 1. Motion limited exam with grossly clear lungs. Objective Remarks: GENERAL: This is a well developed well nourished female in no acute distress . On nasal cannula SKIN: Warm and dry. No rash. Multiple tattoos HEAD: Atraumatic. Normocephalic. On the ENT: No nasal bleeding or discharge. Mucous membranes pink and moist. NECK: Trachea midline. No JVD. CARDIOVASCULAR: Normal rate, regular rhythm. S1, S2. No S4. RESPIRATORY: No accessory muscle use. Clear anteriorly. Positive scattered inspiratory wheezing involving the bilateral lower lobes. No retractions. GASTROINTESTINAL: Abdomen soft, non-tender, nondistended. No guarding. MUSCULOSKELETAL: Extremities without clubbing, cyanosis, or edema. No obvious deformities. NEUROLOGICAL: Awake and alert. Cranial nerves II through XII grossly intact. Strength is equal symmetric. Normal sensation. Procedures: 08/20: Intubation Assessment and Plan - Problem List (1) Asthma exacerbation Code(s): J45.901 - Unspecified asthma with (acute) exacerbation Status: Acute (2) Asthma with acute exacerbation in adult Code(s): J45.901 - Unspecified asthma with (acute) exacerbation Status: Acute (3) 20 weeks gestation of Code(s): Z3A.20 - 20 weeks gestation of Status: Acute - Assessment and Plan Plan: Neurologic/psych: Anxiety disorder otherwise specified Currently on lorazepam 4 mg hours as needed for anxiety/agitation Discussed with OB Dr. Sudhakar Gonsalez, karolina short-term benzodiazepines in [place] on dexmedetomidine drip. Weaned off today. Please print 5 mg 3 times daily Hydroxyzine 50 mg IM every 6 hours as needed for anxietynausea Acetaminophen 650 mg every 6 hours as needed Respiratory: Acute asthma exacerbation Pneumonia possibly community-acquired Wean FiO2 maintain O2 saturation 93-95% Currently on albuterol/ipratropium aerosols every 4 hours with albuterol aerosols every 2 hours as needed dyspnea Methylprednisolone 60 mg IV x 1 dose initially, methylprednisolone 40 mg every 12 hours Pulmonology following Patient was previously on a Zithromax-Rocephin and ampicillin (day 2) Currently on piperacillin/tazobactam by infectious disease Rhinovirus positive F/U sputum culture growth today 08/20 CXR-bilateral lower airspace disease Cardiovascular: Sinus tachycardia Maintain map greater than 65mmHG Tachycardia secondary to bouts of agitation Renal: No Rodriguez indicated -- Strict I/Os FEN/GI: Regular diet Famotidine for GI prophylaxis Abdominal ultrasound no acute findings Ondansetron and hydroxyzine for nausea Heme/ID: Lactic acidemia-resolved Normocytic anemia Rhinovirus positive F/U CBC revealed normocytic anemia. Leukocytosis has resolved No growth to date blood culture x 2. Influenza nasal swab and strep pneumo and Legionella urinary antigen-negative No growth to date sputum culture ID following-piperacillin/tazobactam initiated, ampicillin and ceftriaxone discontinued. Currently piperacillin/tazobactam BC count continues to down trend. Lactic acid normal Endocrine: Glucose monitoring per ICU protocol -- SSI Prophylaxis: GI Prophylaxis Famotidine twice daily DVT Prophylaxis -- SCDs, enoxaparin daily Lines: Peripheral IVs x2. Central line if indicated Dispo: Level 3 follow up Code Status: Full code Discussed Condition With: Patient and fianc at bedside. I CHEKO RN. CARE plan discussed and all questions answered (1) Asthma exacerbation Qualifiers: Asthma severity: unspecified severity Asthma persistence: unspecified Qualified Code(s): J45.901 - Unspecified asthma with (acute) exacerbation (2) Asthma with acute exacerbation in adult Qualifiers: Asthma severity: unspecified severity Asthma persistence: unspecified Qualified Code(s): J45.901 - Unspecified asthma with (acute) exacerbation
[2018-08-24 08:39] LABS: Anion Gap 10 meq/L (5-15); Blood Urea Nitrogen 9 mg/dL (7-18); Calcium 7.7 mg/dL (8.5-10.1); Carbon Dioxide 20.9 meq/L (21.0-32.0); Chloride 110 meq/L (98-107); Glomerular Filtration Rate Greater Than 89 mL/min (>89); Glucose,Random 140 mg/dL (74-106); Magnesium 1.6 mg/dL (1.5-2.5); Phosphorus 2.3 mg/dL (2.5-4.9); Sodium 141 meq/L (136-145)
[2018-08-24] MEDS: Prenatal Vit/Ca/Iron/Folic Acid Tablet PO SCH (08:44)
[2018-08-24 08:55] LABS: Platelet Estimate Normal (Normal); Platelet Morphology Normal (Normal)
[2018-08-24] MEDS: Dexmedetomidine Inj 1,000 MCG in Sodium Chlor 0.9% Inj 240 ML IV.CONT PRN (09:40)
[2018-08-24] MEDS ORDERED: Potassium Phosphate Inj 30 MMOL in Sodium Chlor 0.9% Inj 250 ML IV.SIG ONE (10:48)
[2018-08-24] MEDS ORDERED: Magnesium Sulfate Inj 4 GM in Dextrose 5% in Water Inj 100 ML IV.SIG ONE ×2 (10:48)
[2018-08-24] MEDS: MethylPREDNISolone Sod Succinate Inj 40 MG/ML Vial IV.PUSH SCH ×2 (11:29→22:15)
[2018-08-24] MEDS ORDERED: Potassium Phos/Sodium Phos 250 MG Tablet PO ONE (11:39)
[2018-08-24] MEDS ORDERED: Sodium Chloride 0.65% Nasal Spray 45 ML Bottle EACH NARE PRN (11:50)
--- NOTE | 2018-08-24 13:23 | P.PNID ---
Subjective Remarks: Patient remains on the ventilator. No difficulty breathing. Has occasional cough but no sputum production. Comfortable. Afebrile. Respiratory viral culture has rhinovirus. Sputum culture has normal snow. White blood cell count is increased to 11.3. 28-year-old white female who is 20 weeks . The patient has history of COPD. She was admitted to [facility] and subsequently transferred to [place] for further management. She was intubated; currently on the ventilator. The patient had presented to [facility] 3 nights ago and she was given steroids and albuterol inhaler and discharged and after several hours she returned because she was having trouble breathing and this prompted further treatment and transferred to [facility]. Antibiotics: Piperacillin/tazobactam started on 08/21/2018. Lines: IV lines intact. Allergies/Adverse Reactions: Allergies aspirin Allergy (Verified 06/19/18 15:08) Swelling of Lip/Tongue/Throat ibuprofen Allergy (Verified 06/19/18 15:07) Swelling of Lip/Tongue/Throat NSAIDS (Non-Steroidal Anti-Inflamma Allergy (Verified 06/19/18 15:07) Shortness of Breath Objective Vital Signs 08/23/18 13:30 08/23/18 13:45 08/23/18 13:50 Temperature Pulse Rate 130 H 139 H 129 H Respiratory Rate 30 H 36 H Blood Pressure 116/63 114/57 L Pulse Oximetry 93 L 93 L 08/23/18 14:00 08/23/18 14:15 08/23/18 14:30 Temperature Pulse Rate 132 H 108 H 120 H Respiratory Rate 23 23 27 H Blood Pressure 119/57 L 114/57 L 112/56 L Pulse Oximetry 94 L 95 94 L 08/23/18 14:45 08/23/18 15:00 08/23/18 15:15 Temperature Pulse Rate 103 H 91 H 91 H Respiratory Rate 22 22 24 Blood Pressure 115/55 L 108/53 L 111/54 L Pulse Oximetry 95 96 95 08/23/18 15:30 08/23/18 15:45 08/23/18 15:53 Temperature Pulse Rate 101 H 99 H 117 H Respiratory Rate 20 24 20 Blood Pressure 108/57 L 118/57 L Pulse Oximetry 94 L 96 08/23/18 16:00 08/23/18 17:00 08/23/18 18:00 Temperature 99.4 F Pulse Rate 114 H 116 H 119 H Respiratory Rate 26 H 25 H 25 H Blood Pressure 123/53 L Pulse Oximetry 97 93 L 95 08/23/18 18:30 08/23/18 19:00 08/23/18 19:54 Temperature Pulse Rate 102 H 100 H 115 H Respiratory Rate 22 20 18 Blood Pressure 131/62 135/58 L Pulse Oximetry 98 95 08/23/18 20:00 08/23/18 21:00 08/23/18 21:09 Temperature 98.7 F Pulse Rate 105 H 99 H 121 H Respiratory Rate 21 23 20 Blood Pressure Pulse Oximetry 98 95 94 L 08/23/18 21:32 08/23/18 22:00 08/23/18 23:00 Temperature Pulse Rate 121 H 105 H 124 H Respiratory Rate 22 20 25 H Blood Pressure 118/56 L 111/65 99/60 L Pulse Oximetry 94 L 96 94 L 08/23/18 23:02 08/23/18 23:07 08/23/18 23:08 Temperature Pulse Rate 132 H 137 H Respiratory Rate 40 H 24 Blood Pressure 100/63 100/63 Pulse Oximetry 93 L 08/24/18 00:00 08/24/18 00:09 08/24/18 00:10 Temperature 98.5 F Pulse Rate 97 H 119 H 117 H Respiratory Rate Blood Pressure 126/69 Pulse Oximetry 97 96 08/24/18 00:16 08/24/18 01:00 08/24/18 02:00 Temperature Pulse Rate 126 H 96 H 82 Respiratory Rate 19 18 22 Blood Pressure 124/59 L 120/56 L Pulse Oximetry 95 95 08/24/18 03:00 08/24/18 04:00 08/24/18 04:02 Temperature 98.3 F Pulse Rate 102 H 84 91 H Respiratory Rate 22 23 19 Blood Pressure 140/78 126/60 Pulse Oximetry 95 98 08/24/18 05:00 08/24/18 06:00 08/24/18 08:00 Temperature 98.5 F Pulse Rate 66 80 87 Respiratory Rate 15 19 Blood Pressure 112/57 L 74/50 L Pulse Oximetry 97 98 08/24/18 08:45 08/24/18 10:00 08/24/18 12:00 Temperature 97.9 F Pulse Rate 80 121 H 100 H Respiratory Rate 16 Blood Pressure 119/70 Pulse Oximetry 96 99 08/24/18 12:13 Temperature Pulse Rate 92 H Respiratory Rate 20 Blood Pressure Pulse Oximetry Intake & Output 08/23/18 08/24/18 08/24/18 18:59 06:59 18:59 Intake Total 2965 / 2965 2250 / 2250 365 / 365 Output Total 2400 / 2400 1999 Balance 565 / 565 250 / 250 365 / 365 Weight 80 kg Intake: IV 2725 / 2725 1350 / 1350 365 / 365 Precedex Inj 1,000 MCG In NS 250 / 250 250 / 250 300 / 300 Inj 240 ML @ 0.2 MCG/KG/HR 3.92 mls/hr IV.CONT TITRATE PRN Rx# :[id number] D5W/07/05 NS Inj 1,000 ML @ 100 1999 / 1999 1000 / 1000 mls/hr IV.CONT .Q10H [facility] Rx#: [id number] Diprivan 1000 mg/100 ml Inj 1, 65 / 65 000 mg In 100 ml @ 5 MCG/KG/MIN 2.355 mls/hr IV.CONT TITRATE PRN Rx#:[id number] Magnesium Sulfate Inj 4 GM In D5W Inj 100 ML @ 25 mls/hr IV. SIG ONCE ONE Rx#:[id number] Zosyn 3.375 GM Premix 3.375 gm 100 / 100 100 / 100 50 / 50 In 50 ml @ 100 mls/hr IV.SIG Q6H [facility] Rx#:[id number] Potassium Phosphate Inj 30 MMOL 5 / 5 In NS Inj 250 ML @ 43.333 mls/ hr IV.SIG ONCE ONE Rx#:[id number] fentaNYL 10 mcg/mL Premix Drip 310 / 310 2,500 mcg In 250 ml @ 50 MCG/HR 5 mls/hr IV.SIG TITRATE PRN Rx #:[id number] Oral 240 / 240 900 / 900 Output: Urine 1999 Urine Amount (Catheter) 2400 / 2400 Indwelling Urethral Catheter 2400 / 2400 Other: # Voids 6 # Bowel Movements 0 0 08/20/18 13:20 Blood - Peripheral Aerobic Blood Culture - Preliminary No growth in 4 days 08/20/18 13:20 Blood - Peripheral Anaerobic Blood Culture - Preliminary No growth in 4 days 08/20/18 13:26 Blood - Peripheral Aerobic Blood Culture - Preliminary No growth in 4 days 08/20/18 13:26 Blood - Peripheral Anaerobic Blood Culture - Preliminary No growth in 4 days 08/20/18 15:34 Sputum - Endotracheal Gram Stain - Final 08/20/18 15:34 Sputum - Endotracheal Sputum Culture - Final Heavy growth normal respiratory snow 08/20/18 15:00 Urine - Catheterized Urine Legionella Antigen - Final Presumptive negative for Legionella pneumophila serogroup 1 antigen in urine, suggesting no recent or recurrent infection. Infection due to Legionella cannot be ruled out since other serogroups and species may cause disease, antigen may not be present in urine in early infection, and the level of antigen present in the urine may be below the detection limit of the test. 08/20/18 15:00 Urine - Catheterized Urine Streptococcus pneumoniae Antigen ( M - Final Presumptive negative for streptococcus pneumoniae antigen, suggesting no current or recent infection. Infection due to Streptococcus pneumoniae cannot be ruled out since the antigen present in the sample may be below the detection limit of the test. Lab - Hematology Results 08/23/18 08/24/18 06:07 06:59 WBC 8.2 11.3 H RBC 2.83 L 3.07 L Hgb 10.0 L 10.6 L Hct 28.2 L 30.2 L MCV 99.5 98.2 MCH 35.2 H 34.4 H MCHC 35.4 35.1 RDW 13.7 13.5 Plt Count 166 190 MPV 8.4 8.3 Prelim Diff (Auto) Slide review pending Neut % (Auto) 81.7 H 78.6 H Lymph % (Auto) 11.3 16.7 Grimes % (Auto) 6.8 4.4 Eos % (Auto) 0.1 0.1 Baso % (Auto) 0.1 0.2 Neut # (Auto) 6.7 8.9 H Lymph # (Auto) 0.9 L 1.9 Grimes # (Auto) 0.6 0.5 Eos # (Auto) 0.0 0.0 Baso # (Auto) 0.0 0.0 WBC Differential . . Diff Scan Auto diff confirmed Differential Comment Auto diff final . Platelet Estimate Normal Platelet Morphology Normal Lab - Chemistry Results 08/22/18 08/22/18 08/23/18 17:52 23:43 05:22 Sodium Potassium Chloride Carbon Dioxide Anion Gap BUN Creatinine Estimated GFR POC Glucose 136 H 144 H 132 H Random Glucose Calcium Phosphorus Magnesium 08/23/18 08/23/18 08/23/18 06:07 11:35 17:27 Sodium 142 Potassium 4.5 Chloride 111 H Carbon Dioxide 23.4 Anion Gap 8 BUN 8 Creatinine 0.60 Estimated GFR Greater than 89 POC Glucose 92 155 H Random Glucose 119 H Calcium 7.7 L Phosphorus 3.0 Magnesium 2.3 08/23/18 08/24/18 08/24/18 23:41 05:54 06:59 Sodium 141 Potassium 3.0 L D Chloride 110 H Carbon Dioxide 20.9 L Anion Gap 10 BUN 9 Creatinine 0.71 Estimated GFR Greater than 89 POC Glucose 155 H 184 H Random Glucose 140 H Calcium 7.7 L Phosphorus 2.3 L Magnesium 1.6 D 08/24/18 08/24/18 08/24/18 11:38 11:40 12:08 Sodium Potassium Chloride Carbon Dioxide Anion Gap BUN Creatinine Estimated GFR POC Glucose 65 L 71 85 Random Glucose Calcium Phosphorus Magnesium Imaging: ITS Impressions Abdomen Ultrasound 08/21/18 00:00 CONCLUSION: 1. Mild hepatomegaly, nonspecific. 2. Small right pleural effusion. Venous Doppler Study 08/22/18 00:00 CONCLUSION: 1. Venous thrombosis of the left upper extremity as described. 2. No venous thrombosis of the right upper extremity. Chest X-Ray 08/22/18 08:32 CONCLUSION: 1. Motion limited exam with grossly clear lungs. Physical Exam: PHYSICAL EXAMINATION: GENERAL: Patient is awake and alert. No distress. HEENT: Extraocular movements grossly intact, mild conjunctival erythema. No icterus. Oropharynx is intubated. NECK: No swelling. No adenopathy. LUNGS: Clear breath sounds. HEART: Regular S1 and S2, without murmurs, rubs or gallops. ABDOMEN: Diminished bowel sounds; distended, soft. No tenderness appreciated. EXTREMITIES: No clubbing, cyanosis or edema. SKIN: No rash. NEUROLOGIC: No gross focal finding. PSYCHIATRIC: Calm and cooperative. Assessment and Plan - Plan IMPRESSION: 1. Asthma exacerbation. 2. Respiratory failure. Extubated. 3. Leukocytosis. WBC has increased slightly. However she is on steroids. 4. Possible pneumonia. Sputum culture has normal snow. The rhinovirus recovered on culture is unlikely to be causing her degree of respiratory illness. Is clinically stable. RECOMMENDATIONS: 1. Stop piperacillin/tazobactam. 2. Monitor without antibiotics. 3. Monitor clinical status.
--- NOTE | 2018-08-24 18:56 | P.PNPL ---
Subjective Interval history: 28 YOWF, , with Br asthma exac Extubated 08/23 Sitting up in chair Breathing better gets anxious Weaned to RA Physical Exam Vital signs: Vital Signs 08/23/18 19:00 08/23/18 19:54 08/23/18 20:00 Temperature 98.7 F Pulse Rate 100 H 115 H 105 H Respiratory Rate 20 18 21 Blood Pressure 135/58 L Pulse Oximetry 98 95 98 08/23/18 21:00 08/23/18 21:09 08/23/18 21:32 Temperature Pulse Rate 99 H 121 H 121 H Respiratory Rate 23 20 22 Blood Pressure 118/56 L Pulse Oximetry 95 94 L 94 L 08/23/18 22:00 08/23/18 23:00 08/23/18 23:02 Temperature Pulse Rate 105 H 124 H 132 H Respiratory Rate 20 25 H 40 H Blood Pressure 111/65 99/60 L Pulse Oximetry 96 94 L 93 L 08/23/18 23:07 08/23/18 23:08 08/24/18 00:00 Temperature Pulse Rate 137 H 97 H Respiratory Rate 24 Blood Pressure 100/63 100/63 Pulse Oximetry 08/24/18 00:09 08/24/18 00:10 08/24/18 00:16 Temperature 98.5 F Pulse Rate 119 H 117 H 126 H Respiratory Rate 19 Blood Pressure 126/69 Pulse Oximetry 97 96 08/24/18 01:00 08/24/18 02:00 08/24/18 03:00 Temperature Pulse Rate 96 H 82 102 H Respiratory Rate 18 22 22 Blood Pressure 124/59 L 120/56 L 140/78 Pulse Oximetry 95 95 95 08/24/18 04:00 08/24/18 04:02 08/24/18 05:00 Temperature 98.3 F Pulse Rate 84 91 H 66 Respiratory Rate 23 19 15 Blood Pressure 126/60 112/57 L Pulse Oximetry 98 97 08/24/18 06:00 08/24/18 08:00 08/24/18 08:45 Temperature 98.5 F Pulse Rate 80 87 80 Respiratory Rate 19 16 Blood Pressure 74/50 L Pulse Oximetry 98 96 08/24/18 10:00 08/24/18 12:00 08/24/18 12:13 Temperature 97.9 F Pulse Rate 121 H 100 H 92 H Respiratory Rate 20 Blood Pressure 119/70 Pulse Oximetry 99 08/24/18 14:00 08/24/18 15:50 08/24/18 16:00 Temperature 98.2 F Pulse Rate 123 H 131 H 128 H Respiratory Rate 20 24 Blood Pressure 123/64 Pulse Oximetry 99 08/24/18 17:33 Temperature Pulse Rate 118 H Respiratory Rate Blood Pressure Pulse Oximetry Intake & Output 08/23/18 08/24/18 08/24/18 18:59 06:59 18:59 Intake Total 2965 / 2965 2250 / 2250 1365 / 1365 Output Total 2400 / 2400 1999 1250 / 1250 Balance 565 / 565 250 / 250 115 / 115 Weight 80 kg Intake: IV 2725 / 2725 1350 / 1350 365 / 365 Precedex Inj 1,000 MCG In NS 250 / 250 250 / 250 300 / 300 Inj 240 ML @ 0.2 MCG/KG/HR 3.92 mls/hr IV.CONT TITRATE PRN Rx# :[id number] D5W//2 NS Inj 1,000 ML @ 100 1999 / 1999 1000 / 1000 mls/hr IV.CONT .Q10H [facility] Rx#: [id number] Diprivan 1000 mg/100 ml Inj 1, 65 / 65 000 mg In 100 ml @ 5 MCG/KG/MIN 2.355 mls/hr IV.CONT TITRATE PRN Rx#:[id number] Magnesium Sulfate Inj 4 GM In D5W Inj 100 ML @ 25 mls/hr IV. SIG ONCE ONE Rx#:[id number] Zosyn 3.375 GM Premix 3.375 gm 100 / 100 100 / 100 50 / 50 In 50 ml @ 100 mls/hr IV.SIG Q6H [facility] Rx#:[id number] Potassium Phosphate Inj 30 MMOL 5 / 5 In NS Inj 250 ML @ 43.333 mls/ hr IV.SIG ONCE ONE Rx#:[id number] fentaNYL 10 mcg/mL Premix Drip 310 / 310 2,500 mcg In 250 ml @ 50 MCG/HR 5 mls/hr IV.SIG TITRATE PRN Rx #:[id number] Oral 240 / 240 900 / 900 1000 / 1000 Output: Urine 1999 1250 / 1250 Urine Amount (Catheter) 2400 / 2400 Indwelling Urethral Catheter 2400 / 2400 Other: # Voids 6 3 # Bowel Movements 0 0 0 GENERAL: WBWn NAD SKIN: Warm and dry. HEAD: Normocephalic. EYES: No scleral icterus. No injection or drainage. NECK: Supple, trachea midline. No JVD or lymphadenopathy. CARDIOVASCULAR: Regular rate and rhythm without murmurs, gallops, or rubs. RESPIRATORY: Breath sounds equal bilaterally. No accessory muscle use. End exp rhonchi GASTROINTESTINAL: Abdomen soft, non-tender, nondistended. MUSCULOSKELETAL: No cyanosis, or edema. BACK: Nontender without obvious deformity. No CVA tenderness. - Urinary Catheter Management Indwelling Urethral Catheter Cath placed during this visit: yes, but has since been removed by the nurse Reason for continuing: Other continuation reason Insertion date: 08/20/18 Insertion time: 14:45 Removal date: 08/23/18 Removal time: 16:00 Assessment and Plan - Plan IMPRESSION: VDRF--extuabted 08/23 Br asthma exac Bronchitis PLAN: Cont Abx per ID Cont Steroids Aerosol nebs Symbicort 2 puffs bid SQ Lovenox Stable on RA
[2018-08-25] MEDS: Insulin NovoLOG Aspart Correctional Sugar Inj SQ SCH ×5 (00:16→23:45)
[2018-08-25] MEDS: Oral Hygiene Kit OROPHARYNG SCH ×4 (00:16→23:45)
[2018-08-25] MEDS: Chlorhexidine Gluconate 2% 1 Pack (2 Cloths) TOPICAL SCH ×2 (03:07→03:08)
[2018-08-25] MEDS: Chlorhexidine 0.12% Oral Kit 15 ML UDC OROPHARYNG SCH ×2 (07:59→20:47)
--- NOTE | 2018-08-25 08:57 | P.OBGPN ---
28 y/o @ 20 weeks. S/p extubation. Doing well. Denies vaginal bleeding, contractions/cramping, leakage of fluid/abnormal discharge. Endorses movement. No concerns or questions voiced. Some chest soreness. Patient is awake, alert, and conversant. FHT via bedside doppler 150. Abdomen non-tender, non-distended. No LE edema or cyanosis noted. Tachycardic with regular rhythm. Lungs sounds coarse with wheezes bilaterally. Plan to continue daily heart tones. Patient discussed with Dr. Torres
[2018-08-25] MEDS: Budesonide-Formoterol 160/4.5 MCG 6 GM Inhaler INH SCH ×2 (09:33→21:03)
[2018-08-25] MEDS: Prenatal Vit/Ca/Iron/Folic Acid Tablet PO SCH (09:33)
[2018-08-25] MEDS: Enoxaparin Inj 40 MG/0.4 ML Syringe SQ SCH (09:33)
[2018-08-25] MEDS: Famotidine 20 MG Tablet PO SCH ×2 (09:33→20:47)
[2018-08-25 09:41] LABS: Baso % (Auto) 0.1 % (0.0-2.0); Eos % (Auto) 0.1 % (0.0-4.0); Hemoglobin 12.1 gm/dL (11.6-15.3); Lymph # (Auto) 2.4 th/mm3 (1.0-4.8); Lymph % (Auto) 21.1 % (9.0-44.0); Mean Corpuscular HGB Conc 34.6 % (32.0-36.0); Mean Corpuscular Hemoglobin 33.9 pg (27.0-34.0); Mono # (Auto) 0.7 th/mm3 (0.0-0.9); Neut # (Auto) 8.4 th/mm3 (1.8-7.7); Neut % (Auto) 72.7 % (16.0-70.0); Platelet Count 224 th/mm3 (150-450); Red Blood Count 3.57 mil/mm3 (4.00-5.30); Red Cell Distribution Width 13.5 % (11.6-17.2); White Blood Count 11.6 th/mm3 (4.0-11.0)
[2018-08-25 10:07] LABS: Albumin 2.4 g/dL (3.4-5.0); Anion Gap 12 meq/L (5-15); Aspartate Aminotransferase 13 U/L (15-37); Blood Urea Nitrogen 8 mg/dL (7-18); Calcium 8.5 mg/dL (8.5-10.1); Carbon Dioxide 24.2 meq/L (21.0-32.0); Chloride 104 meq/L (98-107); Glomerular Filtration Rate Greater Than 89 mL/min (>89); Glucose,Random 61 mg/dL (74-106); Magnesium 1.9 mg/dL (1.5-2.5); Sodium 140 meq/L (136-145)
[2018-08-25 10:19] LABS: Alanine Aminotransferase 23 U/L (10-53); Alkaline Phosphatase 37 U/L (45-117); Phosphorus 4.4 mg/dL (2.5-4.9); Total Protein 6.4 g/dL (6.4-8.2)
[2018-08-25] MEDS: MethylPREDNISolone Sod Succinate Inj 40 MG/ML Vial IV.PUSH SCH ×2 (14:59→23:05)
--- NOTE | 2018-08-25 16:38 | P.PNIM ---
Subjective Interval history: Patient says she is feeling a little better every day. Breathing improving. Physical Exam Vital signs: Vital Signs 08/24/18 17:00 08/24/18 17:33 08/24/18 18:08 Temperature Pulse Rate 122 H 118 H 108 H Respiratory Rate 22 21 Blood Pressure Pulse Oximetry 97 96 08/24/18 19:00 08/24/18 20:00 08/24/18 20:02 Temperature 98.2 F Pulse Rate 134 H 142 H 125 H Respiratory Rate 41 H 36 H 29 H Blood Pressure 144/81 H 144/81 H Pulse Oximetry 99 94 L 95 08/24/18 21:00 08/24/18 21:01 08/24/18 22:00 Temperature Pulse Rate 129 H 104 H 107 H Respiratory Rate 18 19 Blood Pressure Pulse Oximetry 94 L 96 08/24/18 22:04 08/24/18 23:00 08/25/18 00:00 Temperature 98.4 F Pulse Rate 128 H 116 H 100 H Respiratory Rate 21 36 H 23 Blood Pressure 129/69 Pulse Oximetry 95 93 L 08/25/18 00:05 08/25/18 01:00 08/25/18 01:09 Temperature Pulse Rate 104 H 107 H 109 H Respiratory Rate 21 20 20 Blood Pressure 129/69 Pulse Oximetry 93 L 98 08/25/18 02:00 08/25/18 03:00 08/25/18 04:00 Temperature 98.2 F Pulse Rate 117 H 109 H 99 H Respiratory Rate 22 19 20 Blood Pressure Pulse Oximetry 92 L 92 L 92 L 08/25/18 04:52 08/25/18 04:56 08/25/18 04:58 Temperature Pulse Rate 109 H 118 H Respiratory Rate 31 H 19 Blood Pressure 119/68 119/68 Pulse Oximetry 100 08/25/18 05:00 08/25/18 06:00 08/25/18 07:00 Temperature Pulse Rate 108 H 105 H 96 H Respiratory Rate 20 19 17 Blood Pressure Pulse Oximetry 99 93 L 93 L 08/25/18 08:00 08/25/18 09:00 08/25/18 09:05 Temperature Pulse Rate 95 H 114 H 93 H Respiratory Rate 20 24 12 Blood Pressure Pulse Oximetry 94 L 93 L 08/25/18 09:07 08/25/18 10:00 08/25/18 11:00 Temperature Pulse Rate 95 H 117 H Respiratory Rate 19 27 H Blood Pressure Pulse Oximetry 98 94 L 96 08/25/18 12:00 08/25/18 12:05 08/25/18 13:00 Temperature Pulse Rate 112 H 106 H Respiratory Rate 27 H 16 17 Blood Pressure Pulse Oximetry 96 96 08/25/18 13:01 08/25/18 14:00 08/25/18 15:00 Temperature Pulse Rate 105 H 127 H 115 H Respiratory Rate 16 25 H 22 Blood Pressure Pulse Oximetry 93 L 97 08/25/18 16:00 08/25/18 16:31 Temperature Pulse Rate 116 H Respiratory Rate 26 H 16 Blood Pressure Pulse Oximetry 95 Intake & Output 08/24/18 08/25/18 08/25/18 18:59 06:59 18:59 Intake Total 1365 / 1365 1200 / 1200 Output Total 1250 / 1250 Balance 115 / 115 1200 / 1200 Weight 78.5 kg Intake: IV 365 / 365 1000 / 1000 Precedex Inj 1,000 MCG In NS 300 / 300 Inj 240 ML @ 0.2 MCG/KG/HR 3.92 mls/hr IV.CONT TITRATE PRN Rx# :[id number] D5W// NS Inj 1,000 ML @ 100 1000 / 1000 mls/hr IV.CONT .Q10H [facility] Rx#: [id number] Magnesium Sulfate Inj 4 GM In D5W Inj 100 ML @ 25 mls/hr IV. SIG ONCE ONE Rx#:[id number] Zosyn 3.375 GM Premix 3.375 gm 50 / 50 In 50 ml @ 100 mls/hr IV.SIG Q6H [facility] Rx#:[id number] Potassium Phosphate Inj 30 MMOL 5 / 5 In NS Inj 250 ML @ 43.333 mls/ hr IV.SIG ONCE ONE Rx#:[id number] Oral 1000 / 1000 200 / 200 Output: Urine 1250 / 1250 Other: # Voids 3 4 # Bowel Movements 0 0 Narrative: GENERAL: 28-year-old female sitting up in bed. Appears comfortable. SKIN: Warm and dry. HEAD: Normocephalic. EYES: No scleral icterus. No injection or drainage. NECK: Supple, trachea midline. No JVD. CARDIOVASCULAR: Regular rate and rhythm without murmurs, gallops, or rubs. RESPIRATORY: Breath sounds equal bilaterally. No accessory muscle use. GASTROINTESTINAL: Abdomen soft, non-tender, nondistended. MUSCULOSKELETAL: No cyanosis, trace peripheral edema. BACK: Nontender without obvious deformity. No CVA tenderness. Urinary Catheter Management Indwelling Urethral Catheter: Cath placed during this visit: yes, but has since been removed by the nurse Reason for continuing: Other continuation reason Insertion date: 08/20/18 Insertion time: 14:45 Removal date: 08/23/18 Removal time: 16:00 Results Labs CBC & Chem 7: 08/25/18 07:25 08/25/18 07:25 Labs: Microbiology 08/20/18 13:20 Blood - Peripheral Aerobic Blood Culture - Final No growth in 5 days 08/20/18 13:20 Blood - Peripheral Anaerobic Blood Culture - Final No growth in 5 days 08/20/18 13:26 Blood - Peripheral Aerobic Blood Culture - Final No growth in 5 days 08/20/18 13:26 Blood - Peripheral Anaerobic Blood Culture - Final No growth in 5 days Assessment and Plan (1) Asthma exacerbation: Code(s): J45.901 - Unspecified asthma with (acute) exacerbation Status: Acute (2) Asthma with acute exacerbation in adult: Code(s): J45.901 - Unspecified asthma with (acute) exacerbation Status: Acute (3) 20 weeks gestation of : Code(s): Z3A.20 - 20 weeks gestation of Status: Acute Plan //Anxiety disorder otherwise specified Currently on lorazepam 4 mg hours as needed for anxiety/agitation Discussed with OB Dr. Sudhakar Gonsalez, karolina short-term benzodiazepines in [place] on dexmedetomidine drip. Weaned off today. Please print 5 mg 3 times daily Hydroxyzine 50 mg IM every 6 hours as needed for anxietynausea Acetaminophen 650 mg every 6 hours as needed Respiratory: //Acute asthma exacerbation //Pneumonia possibly community-acquired Wean FiO2 maintain O2 saturation 93-95% Currently on albuterol/ipratropium aerosols every 4 hours with albuterol aerosols every 2 hours as needed dyspnea Methylprednisolone 60 mg IV x 1 dose initially, methylprednisolone 40 mg every 12 hours Pulmonology following Patient was previously on a Zithromax-Rocephin and ampicillin (day 2) Currently on piperacillin/tazobactam by infectious disease Rhinovirus positive F/U sputum culture growth today 08/20 CXR-bilateral lower airspace disease =. Respiratory status improving. Continue supportive treatment. Cardiovascular: //Sinus tachycardia Maintain map greater than 65mmHG Tachycardia secondary to bouts of agitation Renal: No Rodriguez indicated -- Strict I/Os FEN/GI: //Regular diet Famotidine for GI prophylaxis Abdominal ultrasound no acute findings Ondansetron and hydroxyzine for nausea //Hypokalemia. = 08/25 potassium 3.0. Replace. Heme/ID: //Lactic acidemia-resolved //Normocytic anemia //Rhinovirus positive F/U CBC revealed normocytic anemia. Leukocytosis has resolved No growth to date blood culture x 2. Influenza nasal swab and strep pneumo and Legionella urinary antigen-negative No growth to date sputum culture ID following-piperacillin/tazobactam initiated, ampicillin and ceftriaxone discontinued. Currently piperacillin/tazobactam BC count continues to down trend. Lactic acid normal = Observe off antibiotics. Continue monitor. Endocrine: Glucose monitoring per ICU protocol -- SSI . Gynecology following. Appreciate assistance. Prophylaxis: GI Prophylaxis Famotidine twice daily DVT Prophylaxis -- SCDs, enoxaparin daily Discharge Planning: Transfer to floor. Hopefully can discharge in the next 1-2 days. Progress Note: Quality VTE Deep Vein Thrombosis/Pulmonary Embolism Present on Admission: No _ (1) Asthma exacerbation Qualifiers: Asthma severity: unspecified severity Asthma persistence: unspecified Qualified Code(s): J45.901 - Unspecified asthma with (acute) exacerbation (2) Asthma with acute exacerbation in adult Qualifiers: Asthma severity: unspecified severity Asthma persistence: unspecified Qualified Code(s): J45.901 - Unspecified asthma with (acute) exacerbation
[2018-08-25] MEDS ORDERED: Benzocaine/Menthol 15 MG/3.6 MG SF Lozenge BUCCAL PRN (16:53)
--- NOTE | 2018-08-25 18:40 | P.PNPL ---
Subjective Interval history: 28 YOWF, , with Br asthma exac Extubated Sitting up in chair No wheezing, c/o soreness in chest No Difficulty swallowing Anxious to go home Occ cough Physical Exam Vital signs: Vital Signs 08/24/18 19:00 08/24/18 20:00 08/24/18 20:02 Temperature 98.2 F Pulse Rate 134 H 142 H 125 H Respiratory Rate 41 H 36 H 29 H Blood Pressure 144/81 H 144/81 H Pulse Oximetry 99 94 L 95 08/24/18 21:00 08/24/18 21:01 08/24/18 22:00 Temperature Pulse Rate 129 H 104 H 107 H Respiratory Rate 18 19 Blood Pressure Pulse Oximetry 94 L 96 08/24/18 22:04 08/24/18 23:00 08/25/18 00:00 Temperature 98.4 F Pulse Rate 128 H 116 H 100 H Respiratory Rate 21 36 H 23 Blood Pressure 129/69 Pulse Oximetry 95 93 L 08/25/18 00:05 08/25/18 01:00 08/25/18 01:09 Temperature Pulse Rate 104 H 107 H 109 H Respiratory Rate 21 20 20 Blood Pressure 129/69 Pulse Oximetry 93 L 98 08/25/18 02:00 08/25/18 03:00 08/25/18 04:00 Temperature 98.2 F Pulse Rate 117 H 109 H 99 H Respiratory Rate 22 19 20 Blood Pressure Pulse Oximetry 92 L 92 L 92 L 08/25/18 04:52 08/25/18 04:56 08/25/18 04:58 Temperature Pulse Rate 109 H 118 H Respiratory Rate 31 H 19 Blood Pressure 119/68 119/68 Pulse Oximetry 100 08/25/18 05:00 08/25/18 06:00 08/25/18 07:00 Temperature Pulse Rate 108 H 105 H 96 H Respiratory Rate 20 19 17 Blood Pressure Pulse Oximetry 99 93 L 93 L 08/25/18 08:00 08/25/18 09:00 08/25/18 09:05 Temperature Pulse Rate 95 H 114 H 93 H Respiratory Rate 20 24 12 Blood Pressure Pulse Oximetry 94 L 93 L 08/25/18 09:07 08/25/18 10:00 08/25/18 11:00 Temperature Pulse Rate 95 H 117 H Respiratory Rate 19 27 H Blood Pressure Pulse Oximetry 98 94 L 96 08/25/18 12:00 08/25/18 12:05 08/25/18 13:00 Temperature Pulse Rate 112 H 106 H Respiratory Rate 27 H 16 17 Blood Pressure Pulse Oximetry 96 96 08/25/18 13:01 08/25/18 14:00 08/25/18 15:00 Temperature Pulse Rate 105 H 127 H 115 H Respiratory Rate 16 25 H 22 Blood Pressure Pulse Oximetry 93 L 97 08/25/18 16:00 08/25/18 16:31 08/25/18 16:40 Temperature Pulse Rate 116 H 112 H Respiratory Rate 26 H 16 16 Blood Pressure Pulse Oximetry 95 08/25/18 18:00 Temperature Pulse Rate 106 H Respiratory Rate Blood Pressure Pulse Oximetry Intake & Output 08/24/18 08/25/18 08/25/18 18:59 06:59 18:59 Intake Total 1365 / 1365 1200 / 1200 600 / 600 Output Total 1250 / 1250 Balance 115 / 115 1200 / 1200 600 / 600 Weight 78.5 kg Intake: IV 365 / 365 1000 / 1000 Precedex Inj 1,000 MCG In NS 300 / 300 Inj 240 ML @ 0.2 MCG/KG/HR 3.92 mls/hr IV.CONT TITRATE PRN Rx# :[id number] D5W/1/2 NS Inj 1,000 ML @ 100 1000 / 1000 mls/hr IV.CONT .Q10H [facility] Rx#: [id number] Magnesium Sulfate Inj 4 GM In 10 / 10 D5W Inj 100 ML @ 25 mls/hr IV. SIG ONCE ONE Rx#:[id number] Zosyn 3.375 GM Premix 3.375 gm 50 / 50 In 50 ml @ 100 mls/hr IV.SIG Q6H [facility] Rx#:[id number] Potassium Phosphate Inj 30 MMOL 5 / 5 In NS Inj 250 ML @ 43.333 mls/ hr IV.SIG ONCE ONE Rx#:[id number] Oral 1000 / 1000 200 / 200 600 / 600 Output: Urine 1250 / 1250 Other: # Voids 3 4 4 # Bowel Movements 0 0 GENERAL: WBWN NAD SKIN: Warm and dry. HEAD: Normocephalic. EYES: No scleral icterus. No injection or drainage. NECK: Supple, trachea midline. No JVD or lymphadenopathy. CARDIOVASCULAR: Regular rate and rhythm without murmurs, gallops, or rubs. RESPIRATORY: Breath sounds equal bilaterally. No accessory muscle use. GASTROINTESTINAL: Abdomen soft, non-tender, nondistended. MUSCULOSKELETAL: No cyanosis, or edema. BACK: Nontender without obvious deformity. No CVA tenderness. - Urinary Catheter Management Indwelling Urethral Catheter Cath placed during this visit: yes, but has since been removed by the nurse Reason for continuing: Other continuation reason Insertion date: 08/20/18 Insertion time: 14:45 Removal date: 08/23/18 Removal time: 16:00 Assessment and Plan - Plan IMPRESSION: VDRF--extuabted 08/23 Br asthma exac Bronchitis PLAN: Cont Abx per ID Solumedrol 40 mg q 12 hrs Aerosol nebs Symbicort 2 puffs bid SQ Lovenox Stable on RA
[2018-08-26] MEDS: Oral Hygiene Kit OROPHARYNG SCH ×3 (04:22→16:52)
[2018-08-26] MEDS: Insulin NovoLOG Aspart Correctional Sugar Inj SQ SCH ×3 (05:02→17:14)
[2018-08-26 06:30] LABS: Albumin 2.5 g/dL (3.4-5.0); Anion Gap 10 meq/L (5-15); Blood Urea Nitrogen 11 mg/dL (7-18); Calcium 8.8 mg/dL (8.5-10.1); Carbon Dioxide 22.2 meq/L (21.0-32.0); Chloride 109 meq/L (98-107); Glomerular Filtration Rate Greater Than 89 mL/min (>89); Glucose,Random 95 mg/dL (74-106); Potassium 3.7 meq/L (3.5-5.1); Sodium 141 meq/L (136-145)
[2018-08-26 06:31] LABS: Phosphorus 4.1 mg/dL (2.5-4.9)
[2018-08-26] MEDS: Chlorhexidine 0.12% Oral Kit 15 ML UDC OROPHARYNG SCH ×2 (07:21→20:12)
[2018-08-26] MEDS: Prenatal Vit/Ca/Iron/Folic Acid Tablet PO SCH (08:10)
[2018-08-26] MEDS: Enoxaparin Inj 40 MG/0.4 ML Syringe SQ SCH (08:10)
[2018-08-26] MEDS: Budesonide-Formoterol 160/4.5 MCG 6 GM Inhaler INH SCH ×2 (08:11→20:12)
[2018-08-26] MEDS: Famotidine 20 MG Tablet PO SCH ×2 (08:11→20:11)
--- NOTE | 2018-08-26 08:15 | P.OBGPN ---
28 y/o @ 20 weeks. S/p extubation. Doing well. Denies vaginal bleeding, contractions/cramping, leakage of fluid/abnormal discharge. Endorses some movement. No concerns or questions voiced. Patient is awake, alert, and conversant. FHT via bedside doppler 160. Abdomen non-tender, non-distended. No LE edema or cyanosis noted. Plan to continue daily heart tones. Patient does not need to undergo surveillance or treatment on the Ob floor before discharge. JONO Simental PL
--- NOTE | 2018-08-26 08:38 | P.PNIM ---
Subjective Interval history: EVITA as per patient overnight no sob, palp, or active chest pain denied wheezing + anxiousness S[employer]ER also present at bedside to evaluate Physical Exam Vital signs: Vital Signs 08/25/18 09:00 08/25/18 09:05 08/25/18 09:07 Temperature Pulse Rate 114 H 93 H Respiratory Rate 24 12 Blood Pressure Pulse Oximetry 93 L 98 08/25/18 10:00 08/25/18 11:00 08/25/18 12:00 Temperature Pulse Rate 95 H 117 H 112 H Respiratory Rate 19 27 H 27 H Blood Pressure Pulse Oximetry 94 L 96 96 08/25/18 12:05 08/25/18 13:00 08/25/18 13:01 Temperature Pulse Rate 106 H 105 H Respiratory Rate 16 17 16 Blood Pressure Pulse Oximetry 96 08/25/18 14:00 08/25/18 15:00 08/25/18 16:00 Temperature Pulse Rate 127 H 115 H 116 H Respiratory Rate 25 H 22 26 H Blood Pressure Pulse Oximetry 93 L 97 95 08/25/18 16:31 08/25/18 16:40 08/25/18 18:00 Temperature Pulse Rate 112 H 106 H Respiratory Rate 16 16 Blood Pressure Pulse Oximetry 08/25/18 20:00 08/25/18 20:15 08/25/18 20:36 Temperature 98.6 F Pulse Rate 101 H 101 H 107 H Respiratory Rate 18 17 Blood Pressure 106/59 L Pulse Oximetry 95 99 08/25/18 23:49 08/26/18 00:00 08/26/18 00:15 Temperature 98.0 F Pulse Rate 121 H 109 H 109 H Respiratory Rate 19 26 H Blood Pressure 134/75 Pulse Oximetry 98 08/26/18 04:00 08/26/18 04:11 08/26/18 07:48 Temperature Pulse Rate 99 H 105 H 100 H Respiratory Rate 19 17 Blood Pressure Pulse Oximetry 93 L Intake & Output 08/25/18 08/26/18 08/26/18 18:59 06:59 18:59 Intake Total 600 / 600 Balance 600 / 600 Weight 78.5 kg Intake: Oral 600 / 600 Other: # Voids 4 4 # Incontinent Voids 2 gen: nad heent: eomi cvs: tachycardia resp: cta without wheeze, rales, or rhonchi gi: distented 2/2 , non tender, + bowel sounds ext: no edema, 2+ dpp Urinary Catheter Management Indwelling Urethral Catheter: Cath placed during this visit: yes, but has since been removed by the nurse Reason for continuing: Other continuation reason Insertion date: 08/20/18 Insertion time: 14:45 Removal date: 08/23/18 Removal time: 16:00 Results Labs CBC & Chem 7: 08/25/18 07:25 08/26/18 05:22 Labs: Microbiology 08/20/18 13:20 Blood - Peripheral Aerobic Blood Culture - Final No growth in 5 days 08/20/18 13:20 Blood - Peripheral Anaerobic Blood Culture - Final No growth in 5 days 08/20/18 13:26 Blood - Peripheral Aerobic Blood Culture - Final No growth in 5 days 08/20/18 13:26 Blood - Peripheral Anaerobic Blood Culture - Final No growth in 5 days Assessment and Plan (1) Asthma exacerbation: Code(s): J45.901 - Unspecified asthma with (acute) exacerbation Status: Acute (2) Asthma with acute exacerbation in adult: Code(s): J45.901 - Unspecified asthma with (acute) exacerbation Status: Acute (3) 20 weeks gestation of : Code(s): Z3A.20 - 20 weeks gestation of Status: Acute Plan Patient is a 28 year old female 5 weeks 6 days pregnanct presenting with SOB in setting of suspected asthma exacerbation pulm: asthma exacerbation - change to pred 40 - continue nebs - + rhinovirus recc supportive care - observe off abx therapy as per ID store detective: - store detective evaluated and no additional recc - ativan 2mg PO from IV to begin code: fc dvt: lovenox dispo: d/c planning 24 hrs pending clearance from S[employer] M[employer]ER, pulmonary, and infectious disease. care discussed with patient at bedside. continue to monitor Progress Note: Quality VTE Deep Vein Thrombosis/Pulmonary Embolism Present on Admission: No _ (1) Asthma exacerbation Qualifiers: Asthma severity: unspecified severity Asthma persistence: unspecified Qualified Code(s): J45.901 - Unspecified asthma with (acute) exacerbation (2) Asthma with acute exacerbation in adult Qualifiers: Asthma severity: unspecified severity Asthma persistence: unspecified Qualified Code(s): J45.901 - Unspecified asthma with (acute) exacerbation
[2018-08-26] MEDS ORDERED: predniSONE 20 MG Tablet PO SCH (09:00)
[2018-08-27] MEDS: Oral Hygiene Kit OROPHARYNG SCH ×2 (00:30→04:07)
[2018-08-27] MEDS: Insulin NovoLOG Aspart Correctional Sugar Inj SQ SCH ×2 (00:30→05:47)
[2018-08-27 05:57] VITALS: BP 132/68; TEMP 98.6
[2018-08-27 08:18] VITALS: O2SAT 95
[2018-08-27 08:19] VITALS: PULSE 112; RESP 20
--- NOTE | 2018-08-27 08:41 | P.DS ---
DS: Providers Date of admission: 08/20/18 09:18 Primary care physician: UNKNOWN Consults: 08/20/18 09:34 Consult to Manager Bakery Stat Consulting Provider: Geovanna Osorio For STAT consult, spoke directly to:: status asthmaticus, hypoxia, severe asthma Reason for Consultation: severe asthma, status asthmaticus ,hypoxia. Spoke with Dr Osorio cook apprentice Notified:: Service Spoke with:: JIM Date Notified:: 08/20/18 Time Notified:: 09:38 Ordering Provider: GIGI Consult to Obstetrics Routine Consulting Provider: Christopher Zazueta Reason for Consultation: Consult for 20 week gestation asthma exacerbation. FHT monitoring Notified:: Physician Spoke with:: CHRISTOPHER ZAZUETA Date Notified:: 08/20/18 Time Notified:: 09:47 Ordering Provider: NICK 08/20/18 09:35 Consult to Manager Bakery Stat Consulting Provider: Geovanna Osorio For STAT consult, spoke directly to:: Dr. Osorio Reason for Consultation: Patient in ICU Notified:: Service Spoke with:: JIM Date Notified:: 08/20/18 Time Notified:: 09:50 Ordering Provider: GIGI 08/20/18 09:38 Consult to Obstetrics Routine Consulting Provider: Christopher Zazueta Reason for Consultation: Pt has asthma exacerbation, needing to speak to Dr. Osorio about montioring Notified:: Physician Spoke with:: CHRISTOPHER ZAZUETA Date Notified:: 08/20/18 Time Notified:: 09:48 Ordering Provider: GIGI 08/20/18 10:27 Consult to Pulmonology Routine Consulting Provider: Sathya Vivas Preferred Cloth Dyer:: Sathya Vivas Reason for Consultation: Severe asthma exacerbation, 20 weeks Notified:: Service Spoke with:: MARTIN Date Notified:: 08/20/18 Time Notified:: 10:32 Ordering Provider: NICK 08/20/18 18:03 Consult to Infectious Diseases Routine Consulting Provider: Dalton No Preferred Cloth Dyer:: Dunia Portillo Reason for Consultation: leukocytosis, elevated lactate Notified:: Service Spoke with:: INÉS Date Notified:: 08/20/18 Time Notified:: 18:16 Ordering Provider: NICK 08/24/18 13:12 Consult to Hospitalist Routine Consulting Provider: Ger Wing Reason for Consultation: [place] of care in a.m. 08/25 admission with asthma exacerbation Notified:: Service Spoke with:: Kody Date Notified:: 08/24/18 Time Notified:: 15:27 Comments:: waiting on assignment - ML Ordering Provider: BRADY Brief History from admission: This is a 28-year-old female that presented to [facility] ER in respiratory distress, having an asthma attack. At that particular hospital the patient continued to have escalation in symptomatology, receiving multiple nebulizer treatments and BiPAP and a consult was placed for emergent transfer to [facility] for treatment. The patient's medical history is significant for the fact that she has chronic asthma has had a previous intubation years ago. The patient was being followed at a clinic due to lack of insurance, continued receiving her Atrovent and Atrovent nebulizer treatment , however she stated over the last 3 days symptoms became worse. The patient reports that for the past 3 days she has had a productive cough of yellowish, greenish sputum, and exacerbation of her asthma the patient is also noted to be 20 weeks gestation. Critical care medicine was consulted upon arrival here, the patient was noted to be on a nonrebreather mask with O2 saturation of 100%. A stat ABG was performed. Patient received an albuterol nebulizer treatment. FiO2 concentration was weaned to Ventimask 50% patient O2 saturation ranging at 95%. DS: Diagnosis Discharge Diagnosis (1) Asthma exacerbation: Status: Acute (2) Asthma with acute exacerbation in adult: Status: Acute (3) 20 weeks gestation of : Status: Acute DS: Summary Patient is a 28 year old female 5 weeks 6 days pregnanct presenting with SOB in setting of suspected asthma exacerbation in setting of rhinovirus infection pulm: asthma exacerbation - change to pred 40mg x 5 days on discharge - continue nebs (albuterol) outpatient prn SOB - + rhinovirus recc supportive care - observe off abx therapy as per ID - Patient given contact information for pulmonary as outpatient for closer monitoring of asthma and coordination of medications as outpatient. manager gyn: - manager gyn follow up outpatient - no ativan PO as outpatient. anxiety much improved since leaving ICU. Patient comfortable code: fc dispo: discharge home prednsione continue nebs [facility] referral provided for PMD establishment return to ED if symptoms worsen plan of care discussed with patient and significant other this morning prior to discharge. Plan of care agreed upon. Time Spent with Patient Total time spent providing and/or coordinating discharge services: > 30 minutes Patient is a 28 year old female 5 weeks 6 days pregnanct presenting with SOB in setting of suspected asthma exacerbation in setting of rhinovirus infection pulm: asthma exacerbation - change to pred 40mg x 5 days on discharge - continue nebs (albuterol) outpatient prn SOB - + rhinovirus recc supportive care - observe off abx therapy as per ID - Patient given contact information for pulmonary as outpatient for closer monitoring of asthma and coordination of medications as outpatient. manager gyn: - manager gyn follow up outpatient - no ativan PO as outpatient. anxiety much improved since leaving ICU. Patient comfortable code: fc dispo: discharge home prednsione continue nebs [facility] referral provided for PMD establishment return to ED if symptoms worsen plan of care discussed with patient and significant other this morning prior to discharge. Plan of care agreed upon. Quality: VTE Deep Vein Thrombosis/Pulmonary Embolism Present on Admission: No Exam Narrative Exam Narrative: pulm: no wheezing this morning, cta, no accessory muscle use Results Labs on day of discharge: Labs from last 24 hours 08/27/18 08/27/18 08/26/18 05:45 00:29 17:35 POC Glucose 85 111 H 146 H Impressions ITS Impressions Abdomen Ultrasound 08/21/18 00:00 CONCLUSION: 1. Mild hepatomegaly, nonspecific. 2. Small right pleural effusion. Venous Doppler Study 08/22/18 00:00 CONCLUSION: 1. Venous thrombosis of the left upper extremity as described. 2. No venous thrombosis of the right upper extremity. Chest X-Ray 08/22/18 08:32 CONCLUSION: 1. Motion limited exam with grossly clear lungs. Discharge Plan Discharge Disposition Patient Disposition: 01 Discharge Home Discharge Condition Condition: Stable Discharge Order Discharge Orders: Discharge Order (Routine); Ordered 08/27/18 Ordered By: Vincent Ramirez Discharge Details Anticipated Discharge Date: 08/27/18 Discharge Comment: I saw patient this morning. clear to discharge. thanks! Physicians Team Primary Care Provider: UNKNOWN, Attending Provider: Vincent Ramirez Other Providers: Geovanna Osorio ; Christopher Zazueta ; Sathya Vivas ; Dalton No ; Otf Gunn Rxs /Orders / Referrals /Forms Prescriptions: New prednisone 20 mg Tablet 40 mg PO DAILY 4 Days Qty: 8 RF: 0 Continue albuterol sulfate 1.25 mg/3 mL Solution For Nebulization 1.25 mg INHALATION Q4H PRN (Reason: Shortness Of Breath) RF: 0 fluticasone-salmeterol [Advair Diskus] 100-50 mcg/dose Blister With Device 1 puff INHALATION Q12H RF: 0 albuterol sulfate 90 mcg/actuation Hfa Aerosol Inhaler 1 puff INHALATION Q6H PRN (Reason: Shortness Of Breath) RF: 0 prenat.vits,katie,bum-frrb-oezol tablet 1 tab PO DAILY Qty: 30 RF: 0 Discontinued azithromycin [Zithromax Z-James] 250 mg Tablet 250 mg PO DAILY RF: 0 prednisone 5 mg Tablets,Dose Pack 5 mg PO PER PKG DIR RF: 0 Referrals: Otf Gunn MD [Physician] - See Instructions (for asthma follow up if needed and coordination of medication as outpatient. Call for appointment within 7 days. ) UNKNOWN, [Primary Care Provider] - See Instructions (Please continue to follow up with your INSTRUMENTATION TECHNICIAN outpatient. To establish a primary medical doctor you may visit the [facility] and contact information will be provided. ) [facility], [Non-Staff] - See Instructions (You reported that you do not have a dedicated primary doctor and your INSTRUMENTATION TECHNICIAN functions in this role. [facility] with following discharge. Call for appointment within 7 days of dsicharge ) Stand Alone Forms: Work Release/Restrictions Discharge Instructions Patient Printed Instructions: Asthma (GEN)
== END 2018-08-27 10:22 | disposition home or self-care (01) | DRG 831 ==
LOC: HIMC 09:28 → H7ONC 08-26 12:18
PROVIDERS: ADMIT Internal Medicine; ATTEND Internal Medicine
DX: B97.89 Other viral agents as the cause of diseases classified elsewhere; O99.282 Endocrine, nutritional and metabolic diseases complicating pregnancy, second trimester; O99.512 Diseases of the respiratory system complicating pregnancy, second trimester; J96.01 Acute respiratory failure with hypoxia; O99.012 Anemia complicating pregnancy, second trimester; Z3A.20 20 weeks gestation of pregnancy; J45.901 Unspecified asthma with (acute) exacerbation; J18.9 Pneumonia, unspecified organism; I82.619 Acute embolism and thrombosis of superficial veins of unspecified upper extremity; R00.0 Tachycardia, unspecified; Z87.891 Personal history of nicotine dependence; O22.8X2 Other venous complications in pregnancy, second trimester; E87.6 Hypokalemia; J44.0 Chronic obstructive pulmonary disease with (acute) lower respiratory infection; E87.2 Acidosis; O99.342 Other mental disorders complicating pregnancy, second trimester; D64.9 Anemia, unspecified; F41.9 Anxiety disorder, unspecified
CPT/HCPCS: 31500; 36600; 36620; 71010; 71045; 76700; 76937; 80048; 80053; 80069; 82040; 82785; 82805; 82948; 82962; 83605; 83735; 84100; 85025; 85027; 87040; 87070; 87205; 87275; 87276; 87449; 87633; 87641; 87804; 93306; 93970; 94002; 94003; 94150; 94640; 94656; 94657; 94664; 94665; 97162; J0290; J0330; J0696; J1650; J1815; J2060; J2250; J2405; J2543; J2704; J2920; J2930; J3010; J3410; J3475; J7030; J7040; J7050; J7506; J7512